=== PATIENT | female | born 1950 | race Caucasian/White ===

== ENCOUNTER → 2019-09-07 | Outpatient (CLI) | payer MEDICARE, OTHER ==
--- NOTE | 2019-09-10 11:41 | MM ---
Reason for exam: screening (asymptomatic). Last mammogram was performed 15 years and 3 months ago. History: Patient has history of other cancer at age 69. Took estrogen for 1 year. Physical Findings: A clinical breast exam by your physician is recommended on an annual basis and results should be correlated with mammographic findings. MG 3D Screening Mammo W/Cad Bilateral CC and MLO view(s) were taken. No prior studies available for comparison. The breast tissue is heterogeneously dense. This may lower the sensitivity of mammography. Benign calcifications. There is no discrete abnormality. ASSESSMENT: Benign, BI-RAD 2 RECOMMENDATION: Routine screening mammogram of both breasts in 1 year.
== END | disposition home or self-care (01) ==
LOC: RADMAMWWP 15:37
PROVIDERS: ATTEND Obstetrics & Gynecology
DX: Z12.31 Encounter for screening mammogram for malignant neoplasm of breast (principal)
CPT/HCPCS: 77063; 77067

== ENCOUNTER → 2020-07-24 | Outpatient (CLI) | payer MEDICARE, OTHER ==
--- NOTE | 2020-07-25 12:48 | FL ---
EXAMINATION TYPE: FL barium swallow w video DATE OF EXAM: 07/24/2020 MODIFIED BARIUM SWALLOW FLUOROSCOPY EXAM CLINICAL HISTORY: Dysphagia. Dementia. TECHNIQUE: Notified barium swallow study is performed utilizing thin liquid barium, barium thick pure e, and barium thick puree with pieces of solid cookie. COMPARISON: None. FINDINGS: There is no evidence of penetration or aspiration with any modality tested. No significant pharyngeal residue was appreciated. Total fluoroscopy time 1 minute 10 seconds IMPRESSION: No evidence of penetration or aspiration. Please refer to speech therapist notes for fu rther details if necessary.
== END | disposition home or self-care (01) ==
LOC: RADUSWWP 10:59
PROVIDERS: ATTEND Family Medicine
DX: R13.10 Dysphagia, unspecified (principal); K21.9 Gastro-esophageal reflux disease without esophagitis; F03.91 Unspecified dementia, unspecified severity, with behavioral disturbance
CPT/HCPCS: 74230

== ENCOUNTER 2020-08-09 | Inpatient (IN) | payer MEDICARE, OTHER ==
--- NOTE | 2020-08-09 00:11 | ED ---
General Adult HPI - General Chief complaint: Weakness Stated complaint: Weakness Time Seen by Provider: 08/09/20 00:01 Source: patient, EMS Mode of arrival: EMS Limitations: altered mental status, physical limitation - History of Present Illness Initial comments: Gracie is a 70-year-old female with a history of COPD and previously diagnosed with diabetes but not currently on any medications. She is brought to the emergency department today by EMS for evaluation of lethargy and decreased mental status. Family reports that the patient just hasn't had any energy she's not eating or drinking well, they did talk to her home health care physician yesterday and escutcheon of possible hospice was initiated. They state that they patient couldn't get out of bed they assisted her to the shower and when they took her back to bed she was so weak they decided to call 911 for transport to hospital. They state that over the past week she's occasionally drink some diet Mountain Dew but otherwise is not eating or drinking not getting out of bed. No known fevers. No nausea or vomiting. Only medication is COPD inhalers. They deny any pain medications or sedatives. On arrival patient wakes to voice, she can state her name, she denies any pain, nausea, vomiting states that she feels tired. - Related Data Allergies Allergy/AdvReac Type Severity Reaction Status Date / Time No Known Allergies Allergy Verified 08/09/20 00:07 Review of Systems ROS Statement: Those systems with pertinent positive or pertinent negative responses have been documented in the HPI. ROS Other: All systems not noted in ROS Statement are negative. Past Medical History Past Medical History: COPD, Diabetes Mellitus History of Any Multi-Drug Resistant Organisms: Unobtainable Past Surgical History: Unable to Obtain Past Psychological History: No Psychological Hx Reported Smoking Status: Current every day smoker Past Alcohol Use History: Unable to Obtain Past Drug Use History: Unable to Obtain General Exam - General Exam Comments Initial Comments: Physical Exam GENERAL: Chronically ill-appearing underweight HENT: Normocephalic, Atraumatic. EYES: PERRL, EOMI PULMONARY: Unlabored respirations. No audible rales rhonchi or wheezing was noted. CARDIOVASCULAR: There is a regular rate and rhythm without any murmurs gallops or rubs. ABDOMEN: Soft and nontender with normal bowel sounds. SKIN: Skin is dry, there is skin tenting noted IV has been established and she is received 500 mL IV fluid prior to arrival : Deferred NEUROLOGIC: Alert and oriented to self only MUSCULOSKELETAL: Generalized atrophy, no apparent injuries PSYCHIATRIC: Unable to assess Limitations: altered mental status, physical limitation Course Vital Signs 08/09/20 08/09/20 08/09/20 00:01 01:00 01:38 Temperature 97.4 F L Pulse Rate 109 H 110 H 106 H Respiratory 16 18 Rate Blood Pressure 97/65 105/66 O2 Sat by Pulse 98 98 Oximetry 08/09/20 01:45 Temperature Pulse Rate 109 H Respiratory Rate Blood Pressure O2 Sat by Pulse Oximetry EKG Findings - EKG Comments: EKG Findings:: EKG was obtained due to generalized weakness, EKG obtained at 12:18 AM, rate is 114 rhythm is narrow complex regular with P waves before each QRS consistent with a sinus tachycardia. DE mildly prolonged at 170, QRS 80, QTC [address] elevations or depressions no evidence of acute ischemia or infarction. Medical Decision Making - Medical Decision Making Patient was seen and evaluated immediately upon arrival the emergency department Patient is very somnolent but arousable, labs and imaging will be obtained Labs resulted with multiple significant abnormalities most concerning for lactic acidosis and hyperkalemia with normal kidney function lab did report only minimal homolysis on initial labs Treatment for hyperkalemia was ordered IV fluids for lactic acidosis was ordered Patient more awake and alert after IV fluid resuscitation. We will plan to adm it the patient I contacted the patient's son, Gareth who states that home health did discuss hospice within due to the patient's poor oral intake and general debility however at this time they do not want to consider hospice. They do want to keep the patient's full CODE STATUS. - Lab Data Result diagrams: 08/09/20 00:13 08/09/20 00:13 Lab Results 08/09/20 08/09/20 08/09/20 Range/Units 00:10 00:13 00:13 WBC 5.2 (3.8-10.6) k/uL RBC 5.24 (3.80-5.40) m/uL Hgb 15.2 (11.4-16.0) gm/dL Hct 48.4 H (34.0-46.0) % MCV 92.4 (80.0-100.0) fL MCH 29.0 (25.0-35.0) pg MCHC 31.3 (31.0-37.0) g/dL RDW 15.5 (11.5-15.5) % Plt Count 313 (150-450) k/uL Neutrophils % (Manual) 19 % Band Neuts % (Manual) 54 % Lymphocytes % (Manual) 22 % Monocytes % (Manual) 5 % Neutrophils # (Manual) 3.70 (1.3-7.7) k/uL Lymphocytes # (Manual) 1.14 (1.0-4.8) k/uL Monocytes # (Manual) 0.26 (0-1.0) k/uL Nucleated RBCs 0 (0-0) /100 WBC Manual Slide Review Performed Hypochromasia Slight PT 10.4 (9.0-12.0) sec INR 1.0 (<1.2) APTT 22.6 (22.0-30.0) sec Sodium (137-145) mmol/L Potassium (3.5-5.1) mmol/L Chloride (98-107) mmol/L Carbon Dioxide (22-30) mmol/L Anion Gap mmol/L BUN (7-17) mg/dL Creatinine (0.52-1.04) mg/dL Est GFR (CKD-EPI)AfAm (>60 ml/min/1.73 sqM) Est GFR (CKD-EPI)NonAf (>60 ml/min/1.73 sqM) Glucose (74-99) mg/dL POC Glucose (mg/dL) 164 H (75-99) mg/dL POC Glu Rotary Machine Operator ID [place], [facility] Plasma Lactic Acid Duy (0.7-2.0) mmol/L Calcium (8.4-10.2) mg/dL Total Bilirubin (0.2-1.3) mg/dL AST (14-36) U/L ALT (4-34) U/L Alkaline Phosphatase (38-126) U/L Total Protein (6.3-8.2) g/dL Albumin (3.5-5.0) g/dL TSH (0.465-4.680) mIU/L Free T4 (0.78-2.19) ng/dL Urine Color Urine Appearance (Clear) Urine pH (5.0-8.0) Ur Specific Marion (1.001-1.035) Urine Protein (Negative) Urine Glucose (UA) (Negative) Urine Ketones (Negative) Urine Blood (Negative) Urine Nitrite (Negative) Urine Bilirubin (Negative) Urine Urobilinogen (<2.0) mg/dL Ur Leukocyte Esterase (Negative) Urine RBC (0-5) /hpf Urine WBC (0-5) /hpf Hyaline Casts (0-2) /lpf Urine Mucus (None) /hpf 08/09/20 08/09/20 08/09/20 Range/Units 00:13 00:13 00:14 WBC (3.8-10.6) k/uL RBC (3.80-5.40) m/uL Hgb (11.4-16.0) gm/dL Hct (34.0-46.0) % MCV (80.0-100.0) fL MCH (25.0-35.0) pg MCHC (31.0-37.0) g/dL RDW (11.5-15.5) % Plt Count (150-450) k/uL Neutrophils % (Manual) % Band Neuts % (Manual) % Lymphocytes % (Manual) % Monocytes % (Manual) % Neutrophils # (Manual) (1.3-7.7) k/uL Lymphocytes # (Manual) (1.0-4.8) k/uL Monocytes # (Manual) (0-1.0) k/uL Nucleated RBCs (0-0) /100 WBC Manual Slide Review Hypochromasia PT (9.0-12.0) sec INR (<1.2) APTT (22.0-30.0) sec Sodium 130 L (137-145) mmol/L Potassium 6.2 H* (3.5-5.1) mmol/L Chloride 98 (98-107) mmol/L Carbon Dioxide 14 L (22-30) mmol/L Anion Gap 18 mmol/L BUN 37 H (7-17) mg/dL Creatinine 0.93 (0.52-1.04) mg/dL Est GFR (CKD-EPI)AfAm 74 (>60 ml/min/1.73 sqM) Est GFR (CKD-EPI)NonAf 64 (>60 ml/min/1.73 sqM) Glucose 174 H (74-99) mg/dL POC Glucose (mg/dL) (75-99) mg/dL POC Glu Rotary Machine Operator ID Plasma Lactic Acid Duy 6.9 H* (0.7-2.0) mmol/L Calcium 9.6 (8.4-10.2) mg/dL Total Bilirubin 1.7 H (0.2-1.3) mg/dL AST 50 H (14-36) U/L ALT 24 (4-34) U/L Alkaline Phosphatase 93 (38-126) U/L Total Protein 6.8 (6.3-8.2) g/dL Albumin 3.9 (3.5-5.0) g/dL TSH 5.810 H (0.465-4.680) mIU/L Free T4 1.72 (0.78-2.19) ng/dL Urine Color Red Urine Appearance Clear (Clear) Urine pH 6.5 (5.0-8.0) Ur Specific Marion 1.027 (1.001-1.035) Urine Protein 1+ H (Negative) Urine Glucose (UA) Negative (Negative) Urine Ketones 1+ H (Negative) Urine Blood Negative (Negative) Urine Nitrite Negative (Negative) Urine Bilirubin 1+ H (Negative) Urine Urobilinogen 2.0 (<2.0) mg/dL Ur Leukocyte Esterase Negative (Negative) Urine RBC <1 (0-5) /hpf Urine WBC <1 (0-5) /hpf Hyaline Casts 36 H (0-2) /lpf Urine Mucus Rare H (None) /hpf Critical Care Time Critical Care Time: Yes Total Critical Care Time: 45 Critical Care Time: Critical Care Time 45 min Critical care time was exclusive of separately billable procedures and treating other patients and teaching time. Critical care was necessary to treat or prevent imminent or life-threatening deterioration. Given the critical condition in which the patient arrived, the patient was immediately assessed by myself and the nurse, and cardiac monitoring initiated due to the potential for rapid decompensation of the patient's clinical condition. During the course of the patients stay, I spent a considerable amount of time at the bedside performing serial re-evaluations of the patient's hemodynamic and clinical status because of the recognized potential threat to life or limb in this condition. I then had a chance to review not only all of the available current laboratory and radiographic studies obtained today, but I also reviewed old records available to me at the time. Additionally, any ancillary information available including instructor industrial design records were reviewed. Sequential vital signs were obtained. Disposition Clinical Impression: Dehydration, Hyperkalemia, Generalized weakness, COPD (chronic obstructive pulmonary disease) Disposition: ADMITTED IP TO THIS HOSP Condition: Serious Is patient prescribed a controlled substance at d/c from ED?: No Referrals: None,Stated [Primary Care Provider] - 1-2 days
[2020-08-09 00:12] LABS: Glucose,Whole Blood 164 mg/dL (75-99)
[2020-08-09] MEDS ORDERED: SODIUM CHLORIDE 0.9% 500 ML 500 ML IV SCH (00:15)
[2020-08-09 00:29] LABS: HCT 48.4 % (34.0-46.0); HGB 15.2 gm/dL (11.4-16.0); Hypochromasia Slight; MCHC 31.3 g/dL (31.0-37.0); MCV 92.4 fL (80.0-100.0); Mean Platelet Volume 8.2; Platelet Count 313 k/uL (150-450); RBC 5.24 m/uL (3.80-5.40); RDW 15.5 % (11.5-15.5); WBC 5.2 k/uL (3.8-10.6)
[2020-08-09 00:42] LABS: Albumin 3.9 g/dL (3.5-5.0); Calcium 9.6 mg/dL (8.4-10.2); Total Bilirubin 1.7 mg/dL (0.2-1.3); Total Protein 6.8 g/dL (6.3-8.2)
--- NOTE | 2020-08-09 00:50 | XR ---
EXAMINATION TYPE: XR chest 1V portable DATE OF EXAM: 08/09/2020 COMPARISON: 06/02/2010 HISTORY: Weakness TECHNIQUE: Single view FINDINGS: Heart is normal. Lungs are clear of infiltrate. There is no pleural effusion. There are no hilar masses. IMPRESSION: Normal chest. There is complete clearing of the left pleural effusion compared to old exa m.
[2020-08-09 01:02] LABS: Band Neutrophils % 54 %; Lymphocytes # (M) 1.14 k/uL (1.0-4.8); Monocytes # (M) 0.26 k/uL (0-1.0); Neutrophils % (M) 19 %; Nucleated Red Blood Cells 0 /100 WBC (0-0); Potassium 6.2 mmol/L (3.5-5.1); Total Cells Counted 100
[2020-08-09 01:10] LABS: Partial Thromboplastin Time 22.6 sec (22.0-30.0); Prothrombin Time 10.4 sec (9.0-12.0)
[2020-08-09] MEDS: SODIUM CHLORIDE 0.9% 1,000 ML IV SCH ×3 (01:11→18:13)
[2020-08-09] MEDS ORDERED: ALBUTEROL NEB (CONC) 2.5 MG/0.5 ML INHALATION ONE (01:20)
[2020-08-09] MEDS ORDERED: CALCIUM GLUCONATE 1 GM in SODIUM CHLORIDE 0.9% 100 ML IVPB ONE (01:20)
[2020-08-09] MEDS ORDERED: INSULIN REGULAR 100 UNIT/ML VIAL IV ONE (01:20)
[2020-08-09] MEDS ORDERED: SODIUM BICARB 8.4% 50 ML SYR (1 MEQ/ML) IV ONE (01:20)
[2020-08-09] MEDS ORDERED: SODIUM CHLORIDE 0.9% 1,000 ML IV ONE ×2 (01:21→05:32)
[2020-08-09 01:22] LABS: Appearance,Urine Clear (Clear); Bilirubin,Urine 1+ (Negative); Blood,Urine Negative (Negative); Color,Urine Red; Glucose,Urine (UA) Negative (Negative); Hyaline Casts,Urine 36 /lpf (0-2); Ketones,Urine 1+ (Negative); Leukocyte Esterase,Urine Negative (Negative); Mucus,Urine Rare /hpf; Nitrite,Urine Negative (Negative); PH, Urine 6.5 (5.0-8.0); Protein,Urine 1+ (Negative); RBC,Urine <1 /hpf (0-5); Specific Gravity,Urine 1.027 (1.001-1.035); WBC,Urine <1 /hpf (0-5)
[2020-08-09] MEDS: DEXTROSE 50% SYRINGE 50 ML IVP ONE (01:35)
[2020-08-09 01:42] LABS: T4, Free (Free Thyroxine) 1.72 ng/dL (0.78-2.19)
[2020-08-09] MEDS ORDERED: NALOXONE 0.4 MG/ML 1 ML VIAL IV PRN (01:45)
[2020-08-09 02:17] LABS: VBG PH 7.38 (7.31-7.41)
[2020-08-09] MEDS: MICONAZOLE NITRATE 4%/2% VAG CREAM KIT VAGINAL SCH (02:59)
--- NOTE | 2020-08-09 04:40 | P.HPIM ---
History of Present Illness H&P Date: 08/09/20 Patient is a 70-year-old female with a PMH of type II DM and COPD who was brought into the emergency room by family members due to lethargy and anorexia. The patient notes that she has been feeling weak at home for the past several months though and that she doesn't have the energy to perform basic tasks. She reports only getting up out of bed to go to the restroom a few times a day. As per the ED documentation the patient's family had reported that she has not been eating or drinking while in that she was evaluated by her primary care visiting physician who was concerned regarding the patient's poor functional status and had recommended possible hospice evaluation. At time of interview, the patient reported some nausea and weakness but denied any additional complaints. Reports that she just does not feel like eating or drinking much at home. She denied chest pain, shortness of breath, diarrhea, abdominal pain. During the goals of care discussion, the patient verbalized depressive thoughts with suicidal ideation. She reported that she is fed up with her life and feels that she would be "better off ". She notes that her family is only an annoyance and that they're always pushing her to eat or drink something. She notes that she has thought about ending her life by slitting her throat and her wrists multiple times. In the emergency room a chest x-ray was unremarkable with EKG showing sinus a cardiac with PVCs at 114 bpm with left axis deviation. Laboratory evalu ation revealed lactic acid of 6.9, sodium 130, potassium 6.2 (hemolyzed), CO2 14, BUN 37, creatinine 0.93, glucose 174, with hyalin casts in the UA. Review of Systems Pertinent positives and negatives as discussed in HPI, a complete review of systems was performed and all other systems are negative. Past Medical History Past Medical History: COPD, Diabetes Mellitus History of Any Multi-Drug Resistant Organisms: Unobtainable Past Surgical History: Unable to Obtain Past Psychological History: No Psychological Hx Reported Smoking Status: Current every day smoker Past Alcohol Use History: Unable to Obtain Past Drug Use History: Unable to Obtain Medications and Allergies Allergies Allergy/AdvReac Type Severity Reaction Status Date / Time No Known Allergies Allergy Verified 08/09/20 00:07 Physical Exam Vitals: Vital Signs Temp Pulse Resp BP Pulse Ox 08/09/20 03:15 98.1 F 110 H 19 101/70 99 08/09/20 02:25 113 H 18 203/130 99 08/09/20 01:45 109 H 08/09/20 01:38 106 H 08/09/20 01:00 97.4 F L 110 H 18 105/66 98 08/09/20 00:01 109 H 16 97/65 98 Intake and Output 08/08/20 08/08/20 08/09/20 14:59 22:59 06:59 Other: Weight 56.6 kg General: Very frail elderly female, appears chronically ill, no distress, appears significantly older than stated age Derm: no unusual rashes/lesions no unusual ecchymoses, warm, dry Head: atraumatic, normocephalic, symmetric Eyes: EOMI, no lid lag, anicteric sclera, pupils equal round reactive to light ENT: Nose and ears atraumatic, no thrush, no pharyngeal erythema Neck: No thyromegaly, no cervical lymphadenopathy, trachea midline, supple Mouth: no lip lesion, mucus membranes dry Cardiovascular: S1S2 reg, no murmur, positive posterior tibial pulse bilateral, no edema, capillary refill less than 2 seconds Lungs: CTA bilateral, no rhonchi, no rales , no accessory muscle use Abdominal: soft, nontender to palpation, no guarding, no appreciable organomegaly Ext: Thin extremities, muscle strength 3 out of 5 in all 4 extremities grossly, no contractures, Neuro: CN II-XI grossly intact, light touch intact all 4 extremities Psych: Oriented to person and place, when asked any additional questions, the patient notes that she is too tired to think Results CBC & Chem 7: 08/09/20 00:13 08/09/20 00:13 Labs: Abnormal Lab Results - Last 24 Hours (Table) 08/09/20 08/09/20 08/09/20 Range/Units 00:10 00:13 00:13 Hct 48.4 H (34.0-46.0) % VBG pCO2 (37-51) mmHg VBG HCO3 (24-28) mmol/L Sodium 130 L (137-145) mmol/L Potassium 6.2 H* (3.5-5.1) mmol/L Carbon Dioxide 14 L (22-30) mmol/L BUN 37 H (7-17) mg/dL Glucose 174 H (74-99) mg/dL POC Glucose (mg/dL) 164 H (75-99) mg/dL Plasma Lactic Acid Duy (0.7-2.0) mmol/L Total Bilirubin 1.7 H (0.2-1.3) mg/dL AST 50 H (14-36) U/L TSH 5.810 H (0.465-4.680) mIU/L Urine Protein (Negative) Urine Ketones (Negative) Urine Bilirubin (Negative) Hyaline Casts (0-2) /lpf Urine Mucus (None) /hpf 08/09/20 08/09/20 08/09/20 Range/Units 00:13 00:14 02:09 Hct (34.0-46.0) % VBG pCO2 (37-51) mmHg VBG HCO3 (24-28) mmol/L Sodium (137-145) mmol/L Potassium (3.5-5.1) mmol/L Carbon Dioxide (22-30) mmol/L BUN (7-17) mg/dL Glucose (74-99) mg/dL POC Glucose (mg/dL) (75-99) mg/dL Plasma Lactic Acid Duy 6.9 H* 4.7 H* (0.7-2.0) mmol/L Total Bilirubin (0.2-1.3) mg/dL AST (14-36) U/L TSH (0.465-4.680) mIU/L Urine Protein 1+ H (Negative) Urine Ketones 1+ H (Negative) Urine Bilirubin 1+ H (Negative) Hyaline Casts 36 H (0-2) /lpf Urine Mucus Rare H (None) /hpf 08/09/20 Range/Units 02:10 Hct (34.0-46.0) % VBG pCO2 32 L (37-51) mmHg VBG HCO3 19 L (24-28) mmol/L Sodium (137-145) mmol/L Potassium (3.5-5.1) mmol/L Carbon Dioxide (22-30) mmol/L BUN (7-17) mg/dL Glucose (74-99) mg/dL POC Glucose (mg/dL) (75-99) mg/dL Plasma Lactic Acid Duy (0.7-2.0) mmol/L Total Bilirubin (0.2-1.3) mg/dL AST (14-36) U/L TSH (0.465-4.680) mIU/L Urine Protein (Negative) Urine Ketones (Negative) Urine Bilirubin (Negative) Hyaline Casts (0-2) /lpf Urine Mucus (None) /hpf Assessment and Plan Plan: Severe lactic acidosis -Likely secondary to poor oral intake and dehydration -Monitor to resolution -Continue with IV fluids Acute kidney injury, likely due to poor oral intake -Monitor BMP and continue with IV fluids Failure to thrive -Continue with IV fluids -Physical therapy consult -meat counter worker consult -Dietitian consult Depression with suicidal ideation -Psychiatry consult -Hold off on further goals of care discussion at this time Hyponatremia -Likely secondary to poor oral intake -Continue IV fluids and monitor BMP Chronic conditions: Type II DM, COPD -Check A1c -Lispro insulin sliding scale blood glucose monitoring DVT prophylaxis -Heparin subq The patient is admitted with an anticipated greater than than 2 midnight stay f or evaluation of severe lactic acidosis. CODE STATUS: Full code Discussed with: Patient Anticipated discharge date: 2-[address]: SNF A total of 40 minutes was spent on the care of this complex patient more than 50% of the time was spent in counseling and care coordination.
[2020-08-09 05:02] LABS: Glucose,Whole Blood 131 mg/dL (75-99)
[2020-08-09 07:00] LABS: African American GFR (CKD) >90 (>60 ml/min/1.73 sqM); Anion Gap 8 mmol/L; Blood Urea Nitrogen 34 mg/dL (7-17); Calcium 8.9 mg/dL (8.4-10.2); Carbon Dioxide 23 mmol/L (22-30); Chloride 104 mmol/L (98-107); Glucose 119 mg/dL (74-99); Non-African American GFR(CKD) >90 (>60 ml/min/1.73 sqM); Potassium 3.2 mmol/L (3.5-5.1); Sodium 135 mmol/L (137-145)
[2020-08-09 07:19] LABS: HCT 39.2 % (34.0-46.0); HGB 12.7 gm/dL (11.4-16.0); MCH 28.9 pg (25.0-35.0); MCHC 32.6 g/dL (31.0-37.0); MCV 88.9 fL (80.0-100.0); Mean Platelet Volume 6.8; Platelet Count 282 k/uL (150-450); RDW 15.4 % (11.5-15.5); WBC 5.5 k/uL (3.8-10.6)
[2020-08-09 08:13] LABS: Glucose,Whole Blood 111 mg/dL (75-99)
[2020-08-09] MEDS ORDERED: IOPAMIDOL CONTRAST (ORAL USE) VIAL PO PRN (08:59)
--- NOTE | 2020-08-09 09:22 | XR ---
EXAMINATION TYPE: XR knee complete RT DATE OF EXAM: 08/09/2020 COMPARISON: NONE HISTORY: Pain TECHNIQUE: Three views are submitted. FINDINGS: Diffuse osteopenia. Vascular calcifications noted. Joint spaces fairly well preserved.. Osseous stru ctures are intact. No acute fracture seen. IMPRESSION: 1. No acute fracture or dislocation. 2. Diffuse osteopenia.
[2020-08-09] MEDS: INSULIN ASPART (NovoLOG) 100 UNIT/ML VIAL SQ SCH ×4 (09:33→20:09)
[2020-08-09] MEDS ORDERED: ONDANSETRON 4 MG/2 ML VIAL IVP PRN (09:41)
[2020-08-09] MEDS ORDERED: POTASSIUM CHLORIDE ER 20 MEQ TAB.ER PO STA (10:00)
[2020-08-09] MEDS: POTASSIUM CHLORIDE ER 20 MEQ TAB.ER PO STA ×2 (10:10→10:58)
[2020-08-09] MEDS ORDERED: Potassium Replacement Protocol 1 EACH MISC MISCELLANE PRN (10:43)
[2020-08-09] MEDS: POTASSIUM CHLORIDE 10 MEQ in WATER FOR INJECTION 1 100ML.BAG IVPB SCH ×4 (10:48→20:36)
--- NOTE | 2020-08-09 11:26 | P.PN ---
Subjective Progress Note Date: 08/09/20 (delayed charting seen at 0830) Principal diagnosis: weakness Patient is a 70-year-old female with past medical history of diabetes mellitus type 2, COPD, and tremor was brought into the emergency room by family members due to lethargy and anorexia. Patient has been following with visiting physicians and underwent video fluoroscopy on 07/2520 for possible dysphagia however no dysphagia was noted exam. Apparently visiting physicians had one to discuss hospice care with the patient due to her overall functional decline. Yesterday she became more lethargic and disoriented and subsequently EMS was activated and the patient was brought to the hospital. On EMS arrival the p atient was significantly hypotensive. On arrival to the ER she underwent an extensive evaluation. She was tachycardic with a pulse of 109 and blood pressure of 97/65. Initial laboratory analysis showed sodium 130, potassium 6.2, carbon dioxide 14, anion gap 18, BUN 37, creatinine 0.39, glucose 164, plasma lactic acid 6.9. Her total bilirubin was 1.7 with an AST of 50. Urinalysis showed 1+ protein 1+ ketones 1+ bilirubin and 36 hyalin casts. She was started on IV fluids. Chest x-ray was obtained which was normal. She was subsequently admitted to the ICU for severe metabolic acidosis. After admission she did express suicidal ideation. Suicide sitter was placed and psychiatry was consulted. Patient seen and examined at bedside. She states that she has not been hungry and does not want to eat. She is complaining of some right knee pain and states that she fell yesterday before coming to the emergency department. She states she's been getting weaker. She denies any chest pain or shortness of breath. General: non toxic, no distress, appears older than stated age, thin cachexia, temporal wasting loss of buccal fat Derm: warm, dry, multiple areas of excoriation on her legs. Head: atraumatic, normocephalic, symmetric Eyes: EOMI, no lid lag, anicteric sclera Mouth: no lip lesion, mucus membranes moist Cardiovascular: S1S2 reg, no murmur, positive posterior tibial pulse bilateral, Lungs: Decreased bs bilateral, no rhonchi, no rales , no accessory muscle use Abdominal: soft, nontender to palpation, no guarding, no appreciable organomegaly Ext: no gross muscle atrophy, no edema, no contractures Msucle strenght 4/5 bilateral lower extremities, able to flex and extend at knee and ankle, small effusion right patella, pain to palpation of medial knee joint Neuro: CN II-XI grossly intact, no focal neuro deficits Psych: Alert, oriented, appropriate affect Lactic acidosis suspect secondary to dehydration and starvation -Continue to follow lactic acid to less than 2 -IV fluids Hyponatremia secondary to dehydration -Improving -IV fluids -Repeat in a.m. Elevated bilirubin and AST -CT abdomen and pelvis ordered -Pain control Anorexia with severe protein calorie malnutrition and failure to thrive -Dietary consult -Supplements -Encourage oral intake -Consider age appropriate cancer screening Suicidal ideation - Suicide precaution - Psychiartry evaluation Diabetes mellitus type 2 -Check hemoglobin A1c -Sliding-scale insulin -Verify patient's home meds Right knee pain -On Tylenol as needed for pain -Check x-ray - PT/OT evaluation COPD without exacerbation - prn bronchodilators - unknown severity Hyperkalemia, resolved DVT prophylaxis: SCDs Discussed with: patient, nursing Anticipated discharge: 3-[address]: SNF A total of 35 minutes was spent on the care of this complex patient more than 50% of the time was spent in counseling and care coordination. Objective - Vital Signs Vital signs: Vital Signs Temp 97.7 F 08/09/20 08:15 Pulse 109 H 08/09/20 10:00 Resp 18 08/09/20 10:00 BP 107/63 08/09/20 10:00 Pulse Ox 95 08/09/20 10:00 Intake & Output 08/08/20 08/09/20 08/09/20 18:59 06:59 18:59 Intake Total 390 Balance 390 Weight 56.6 kg Intake: IV 390 Sodium Chloride 0.9% 1, 390 000 ml @ 130 mls/hr IV . Q7H42M [facility] Rx#:[id number] Other: # Voids 1 - Labs CBC & Chem 7: 08/09/20 06:40 08/09/20 06:40 Labs: Abnormal Lab Results - Last 24 Hours (Table) 08/09/20 08/09/20 08/09/20 Range/Units 00:10 00:13 00:13 Hct 48.4 H (34.0-46.0) % VBG pCO2 (37-51) mmHg VBG HCO3 (24-28) mmol/L Sodium 130 L (137-145) mmol/L Potassium 6.2 H* (3.5-5.1) mmol/L Carbon Dioxide 14 L (22-30) mmol/L BUN 37 H (7-17) mg/dL Glucose 174 H (74-99) mg/dL POC Glucose (mg/dL) 164 H (75-99) mg/dL Plasma Lactic Acid Duy (0.7-2.0) mmol/L Total Bilirubin 1.7 H (0.2-1.3) mg/dL AST 50 H (14-36) U/L TSH 5.810 H (0.465-4.680) mIU/L Urine Protein (Negative) Urine Ketones (Negative) Urine Bilirubin (Negative) Hyaline Casts (0-2) /lpf Urine Mucus (None) /hpf 08/09/20 08/09/20 08/09/20 Range/Units 00:13 00:14 02:09 Hct (34.0-46.0) % VBG pCO2 (37-51) mmHg VBG HCO3 (24-28) mmol/L Sodium (137-145) mmol/L Potassium (3.5-5.1) mmol/L Carbon Dioxide (22-30) mmol/L BUN (7-17) mg/dL Glucose (74-99) mg/dL POC Glucose (mg/dL) (75-99) mg/dL Plasma Lactic Acid Duy 6.9 H* 4.7 H* (0.7-2.0) mmol/L Total Bilirubin (0.2-1.3) mg/dL AST (14-36) U/L TSH (0.465-4.680) mIU/L Urine Protein 1+ H (Negative) Urine Ketones 1+ H (Negative) Urine Bilirubin 1+ H (Negative) Hyaline Casts 36 H (0-2) /lpf Urine Mucus Rare H (None) /hpf 08/09/20 08/09/20 08/09/20 Range/Units 02:10 04:08 04:54 Hct (34.0-46.0) % VBG pCO2 32 L (37-51) mmHg VBG HCO3 19 L (24-28) mmol/L Sodium (137-145) mmol/L Potassium (3.5-5.1) mmol/L Carbon Dioxide (22-30) mmol/L BUN (7-17) mg/dL Glucose (74-99) mg/dL POC Glucose (mg/dL) 131 H (75-99) mg/dL Plasma Lactic Acid Duy 5.8 H* (0.7-2.0) mmol/L Total Bilirubin (0.2-1.3) mg/dL AST (14-36) U/L TSH (0.465-4.680) mIU/L Urine Protein (Negative) Urine Ketones (Negative) Urine Bilirubin (Negative) Hyaline Casts (0-2) /lpf Urine Mucus (None) /hpf 08/09/20 08/09/20 08/09/20 Range/Units 06:40 07:29 08:11 Hct (34.0-46.0) % VBG pCO2 (37-51) mmHg VBG HCO3 (24-28) mmol/L Sodium 135 L (137-145) mmol/L Potassium 3.2 L (3.5-5.1) mmol/L Carbon Dioxide (22-30) mmol/L BUN 34 H (7-17) mg/dL Glucose 119 H (74-99) mg/dL POC Glucose (mg/dL) 111 H (75-99) mg/dL Plasma Lactic Acid Duy 2.7 H* (0.7-2.0) mmol/L Total Bilirubin (0.2-1.3) mg/dL AST (14-36) U/L TSH (0.465-4.680) mIU/L Urine Protein (Negative) Urine Ketones (Negative) Urine Bilirubin (Negative) Hyaline Casts (0-2) /lpf Urine Mucus (None) /hpf 08/09/20 Range/Units 10:28 Hct (34.0-46.0) % VBG pCO2 (37-51) mmHg VBG HCO3 (24-28) mmol/L Sodium (137-145) mmol/L Potassium (3.5-5.1) mmol/L Carbon Dioxide (22-30) mmol/L BUN (7-17) mg/dL Glucose (74-99) mg/dL POC Glucose (mg/dL) (75-99) mg/dL Plasma Lactic Acid Duy 2.2 H* (0.7-2.0) mmol/L Total Bilirubin (0.2-1.3) mg/dL AST (14-36) U/L TSH (0.465-4.680) mIU/L Urine Protein (Negative) Urine Ketones (Negative) Urine Bilirubin (Negative) Hyaline Casts (0-2) /lpf Urine Mucus (None) /hpf
--- NOTE | 2020-08-09 11:59 | CT ---
EXAMINATION TYPE: CT ChestAbdPelvis w con DATE OF EXAM: 08/09/2020 COMPARISON: None available. HISTORY: Anorexia, Wt. Loss CT DLP: 814.8 mGycm Automated exposure control for dose reduction was used. CONTRAST: CT scan of the chest, abdomen and pelvis is performed without Oral Contrast and with IV Contrast, pat ient injected with 100 mL of Isovue 300. FINDINGS: LUNGS: The lungs are grossly clear, there is no concerning parenchymal mass or nodule identified. T here is no pleural effusion or pneumothorax seen. The tracheobronchial tree is patent. MEDIASTINUM: There are no greater than 1 cm hilar or mediastinal lymph nodes. No pericardial effusi on is seen. OTHER: No additional significant abnormality is seen. LIVER/GB: No significant abnormality is appreciated. Cholecystectomy is noted. No significant biliary ductal dilatation. PANCREAS: No significant abnormality is seen. SPLEEN: No significant abnormality is seen. ADRENALS: 1.5 cm left adrenal nodule. Unremarkable right adrenal gland. KIDNEYS: No significant abnormality is seen. BOWEL: Mild fluid distention of the colon throughout with mild mucosal enhancement most notable of t he left colon. No overt bowel obstruction or obstructing mass is seen. No acute appendicitis. REPRODUCTIVE ORGANS: No gross abnormality seen. LYMPH NODES: No greater than 1 cm abdominal or pelvic lymph nodes are appreciated. OSSEOUS STRUCTURES: No definite acute osseous abnormality. Multilevel chronic appearing mild to moder ate thoracolumbar compression deformities on the background of mild to moderate spondylosis. OTHER: Urinary bladder is markedly distended. Moderate abdominal aorta atherosclerotic disease. IMPRESSION: Nonspecific mild colonic fluid distention mild mucosal enhancement. Findings may be seen with colitis with/without diarrhea. Recommend clinical correlation. No overt bowel obstruction or free air. Markedly distended urinary bladder. No acute cardiopulmonary abnormality.
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
--- NOTE | 2020-08-09 12:27 | P.CNPUL ---
History of Present Illness Consult date: 08/09/20 Reason for consult: COPD History of present illness: This is a 70-year-old female patient, quite pleasant yet hostile and angry towards her family members as the patient is living at home with her and son. She is a chronic smoker in she has underlying COPD. 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 The patient has been progressively getting worse in ter ms of her nutritional intake. Over the past 1 year, the patient has been having difficulties with dysphagia and keeping food material and. She states that she has been having average bowel movements, somewhat irregular without any bleeding. No abdominal distention. Apparently she's been losing weight. She has a visiting physician was recommended hospice care for her. She hasn't been showed that she would like to take that option at this point in time. Apparently her health has been gradually declining and she is currently down to 56 kg and her body mass index is at 19. She came into the ED as the patient became more lethargic and disoriented and the patient was found to have lactic a cidosis with a plasma lactic acid level of 6.9 and she had a mild anion gap metabolic acidosis the bicarb level of 14 and an anion gap of 18. BUN was 37. Creatinine was 0.39. The patient's sodium level was at 1:30 with a potassium level of 6.2. Urinalysis showed +1 protein and +1 ketones on. No signs of any infection. The chest x-ray was normal. The patient came in to the ICU for severe metabolic acidosis and lactic acidosis. Note that she improved with fluid resuscitation and the patient lactic acid level has declined nicely. She is awake. She has some tremors yet she has never been diagnosed having Parkinson. This may be a component of benign essential tremors. She denies having any headaches. Mental status although seems to be appropriate and she is slow in answering questions. Review of Systems Constitutional: Reports chronic headaches, Reports fatigue, Reports lethargy, Reports poor appetite, Reports weakness, Reports weight loss Eyes: denies as per HPI, denies blurred vision, denies bulging eye, denies decreased vision, denies diplopia, denies discharge, denies dry eye, denies irritation, denies itching, denies pain, denies photophobia, denies loss of peripheral vision, denies loss of vision, denies tunnel vision/blind spots Ears: deny: decreased hearing, ear discharge, earache, tinnitus Ears, nose, mouth and throat: Reports as per HPI Breasts: absent: as per HPI, change in shape, gynecomastia, masses, nipple discharge, pain, skin changes, swelling Cardiovascular: Reports decreased exercise tolerance, Reports dyspnea on exertion Respiratory: Reports as per HPI Gastrointestinal: Reports loss of appetite, Reports nausea, Reports vomiting Genitourinary: Reports as per HPI Menstruation: Reports as per HPI Musculoskeletal: Reports as per HPI, Reports gait dysfunction, Reports muscle weakness Musculoskeletal: absent: ankle pain, ankle stiffness, ankle swelling Integumentary: Reports as per HPI Neurological: Reports weakness Psychiatric: Reports as per HPI Endocrine: Reports as per HPI, Reports fatigue Hematologic/Lymphatic: Reports as per HPI Allergic/Immunologic: Reports as per HPI Past Medical History Past Medical History: COPD, Diabetes Mellitus, Hypertension, Seizure Disorder Additional Past Medical History / Comment(s): tremors, nausea vomiting post oral intake, weight loss #20 History of Any Multi-Drug Resistant Organisms: Unobtainable Past Surgical History: Section, Cholecystectomy Additional Past Surgical History / Comment(s): Right temporal lobectomy r/t seizures, skin cancer nose, carpal tunnel, right shoulder Past Psychological History: No Psychological Hx Reported Smoking Status: Current every day smoker Past Alcohol Use History: Unable to Obtain Past Drug Use History: Unable to Obtain Medications and Allergies Home Medications Medication Instructions Recorded Confirmed Type Biotin 10,000 W/Keratin 100 Mg 1 tab PO DAILY 08/09/20 08/09/20 History Divalproex [Depakote] 250 mg PO BID 08/09/20 08/09/20 History Pantoprazole [Protonix] 40 mg PO DAILY 08/09/20 08/09/20 History Primidone [Mysoline] 250 mg PO DAILY 08/09/20 08/09/20 History QUEtiapine [SEROquel] 50 mg PO HS 08/09/20 08/09/20 History Tiotropium Earle [Spiriva] 1 cap INHALATION DAILY 08/09/20 08/09/20 History Vortioxetine Hydrobromide 20 mg PO DAILY 08/09/20 08/09/20 History [Trintellix] clonazePAM 0.5 mg PO TID PRN 08/09/20 08/09/20 History ramipriL [Ramipril] 2.5 mg PO DAILY 08/09/20 08/09/20 History traZODone HCL 50 mg PO HS 08/09/20 08/09/20 History Allergies Allergy/AdvReac Type Severity Reaction Status Date / Time No Known Allergies Allergy Verified 08/09/20 00:07 Physical Exam Vitals: Vital Signs Temp Pulse Resp BP Pulse Ox 08/09/20 08:30 110 H 10 L 100/62 95 08/09/20 08:15 97.7 F 112 H 12 99/78 92 L 08/09/20 06:36 98.1 F 109 H 18 119/74 100 08/09/20 05:30 98.0 F 110 H 18 98/63 100 08/09/20 04:15 112 H 19 103/67 99 08/09/20 03:15 98.1 F 110 H 19 101/70 99 08/09/20 02:25 113 H 18 203/130 99 08/09/20 01:45 109 H 08/09/20 01:38 106 H 08/09/20 01:00 97.4 F L 110 H 18 105/66 98 08/09/20 00:01 109 H 16 97/65 98 Intake and Output 08/08/20 08/09/20 08/09/20 22:59 06:59 14:59 Intake Total 130 Balance 130 Intake: IV 130 Sodium Chloride 0.9% 1, 130 000 ml @ 130 mls/hr IV . Q7H42M [facility] Rx#:[id number] Other: # Voids 1 Weight 56.6 kg General: non toxic, no distress, appears older than stated age, thin cachexia, temporal wasting loss of buccal fat Derm: warm, dry, multiple areas of excoriation on her legs. Head: atraumatic, normocephalic, symmetric Eyes: EOMI, no lid lag, anicteric sclera Mouth: no lip lesion, mucus membranes moist Cardiovascular: S1S2 reg, no murmur, positive posterior tibial pulse bilateral, Lungs: Decreased bs bilateral, no rhonchi, no rales , no accessory muscle use Abdominal: soft, nontender to palpation, no guarding, no appreciable organomegaly Ext: no gross muscle atrophy, no edema, no contractures Msucle strenght 4/5 bilateral lower extremities, able to flex and extend at knee and ankle, small effusion right patella, pain to palpation of medial knee joint Neuro: CN II-XI grossly intact, no focal neuro deficits Psych: Alert, oriented, appropriate affect Results - Laboratory Findings CBC and BMP: 08/09/20 06:40 08/09/20 06:40 PT/INR, D-dimer PT 10.4 sec (9.0-12.0) 08/09/20 00:13 INR 1.0 (<1.2) 08/09/20 00:13 Abnormal lab findings: Abnormal Labs 08/09/20 08/09/20 08/09/20 00:10 00:13 00:13 Hct 48.4 H VBG pCO2 VBG HCO3 Sodium 130 L Potassium 6.2 H* Carbon Dioxide 14 L BUN 37 H Glucose 174 H POC Glucose (mg/dL) 164 H Plasma Lactic Acid Duy Total Bilirubin 1.7 H AST 50 H TSH 5.810 H Urine Protein Urine Ketones Urine Bilirubin Hyaline Casts Urine Mucus 08/09/20 08/09/20 08/09/20 00:13 00:14 02:09 Hct VBG pCO2 VBG HCO3 Sodium Potassium Carbon Dioxide BUN Glucose POC Glucose (mg/dL) Plasma Lactic Acid Duy 6.9 H* 4.7 H* Total Bilirubin AST TSH Urine Protein 1+ H Urine Ketones 1+ H Urine Bilirubin 1+ H Hyaline Casts 36 H Urine Mucus Rare H 08/09/20 08/09/20 08/09/20 02:10 04:08 04:54 Hct VBG pCO2 32 L VBG HCO3 19 L Sodium Potassium Carbon Dioxide BUN Glucose POC Glucose (mg/dL) 131 H Plasma Lactic Acid Duy 5.8 H* Total Bilirubin AST TSH Urine Protein Urine Ketones Urine Bilirubin Hyaline Casts Urine Mucus 08/09/20 08/09/20 08/09/20 06:40 07:29 08:11 Hct VBG pCO2 VBG HCO3 Sodium 135 L Potassium 3.2 L Carbon Dioxide BUN 34 H Glucose 119 H POC Glucose (mg/dL) 111 H Plasma Lactic Acid Duy 2.7 H* Total Bilirubin AST TSH Urine Protein Urine Ketones Urine Bilirubin Hyaline Casts Urine Mucus - Diagnostic Findings Chest x-ray: image reviewed Assessment and Plan Plan: 1 failure to thrive with ongoing dehydration and lactic acidosis, likely secondary to starvation. Lactic acid levels are improving as the patient is being resuscitated IV fluids 2 hyponatremia, improving 3 severe malnourishment and protein calorie malnutrition and failure to thrive. This could be psychiatric in nature. This could be also organic in nature and the patient needs to be worked up for malignancy/that she is having some previous history of dysphagia and difficulties in tolerating her oral intake. 4 diabetes mellitus type 2 5 history of seizures post resection of a lobe of the brain 6 hypertension 7 COPD which is currently inactive in stable 8 osteoarthritis Plan Continue IV fluids with normal state rate of 1 30 mL an hour The lactic S level is improving Resume all medications including Depakote for seizures Check Depakote levels CAT scan of the chest and abdomen with oral contrast as part of a leg Mrs. screening process Dietary consultation Psychiatric evaluation. Upon further inquiry the patient was taken Seroquel 50 mg at bedtime and addition to clonazepam 0.5 mg 3 times a day when necessary, a nd she is also on trazodone 50 mg at bedtime. We'll continue to follow.
[2020-08-09 12:30] LABS: Glucose,Whole Blood 88 mg/dL (75-99)
[2020-08-09 13:45] LABS: Hemoglobin A1C 5.5 % (4.0-6.0)
[2020-08-09 17:31] LABS: Glucose,Whole Blood 103 mg/dL (75-99)
[2020-08-09 19:28] LABS: Glucose,Whole Blood 94 mg/dL (75-99)
[2020-08-09] MEDS: MIRTAZAPINE 15 MG TAB PO SCH (20:36)
[2020-08-10] MEDS: SODIUM CHLORIDE 0.9% 1,000 ML IV SCH ×2 (02:38→12:15)
[2020-08-10 07:01] LABS: Glucose,Whole Blood 77 mg/dL (75-99)
[2020-08-10] MEDS: INSULIN ASPART (NovoLOG) 100 UNIT/ML VIAL SQ SCH ×4 (08:14→20:36)
[2020-08-10 09:22] LABS: HGB 13.4 gm/dL (11.4-16.0); Hypochromasia Slight; MCH 29.3 pg (25.0-35.0); MCV 91.7 fL (80.0-100.0); Mean Platelet Volume 6.9; Platelet Count 200 k/uL (150-450); RBC 4.58 m/uL (3.80-5.40); RDW 15.5 % (11.5-15.5)
[2020-08-10 09:30] LABS: African American GFR (CKD) >90 (>60 ml/min/1.73 sqM); Anion Gap 6 mmol/L; Blood Urea Nitrogen 12 mg/dL (7-17); Calcium 8.6 mg/dL (8.4-10.2); Carbon Dioxide 23 mmol/L (22-30); Chloride 108 mmol/L (98-107); Glucose 95 mg/dL (74-99); Magnesium 1.5 mg/dL (1.6-2.3); Non-African American GFR(CKD) >90 (>60 ml/min/1.73 sqM); Phosphorus 1.7 mg/dL (2.5-4.5); Potassium 3.6 mmol/L (3.5-5.1); Sodium 137 mmol/L (137-145)
[2020-08-10] MEDS: MAGNESIUM SULFATE-D5W PMX 1 GM in DEXTROSE/WATER 1 100ML.BAG IVPB SCH ×4 (10:55→20:37)
[2020-08-10] MEDS: PANTOPRAZOLE 40 MG TABLET PO SCH (10:59)
[2020-08-10] MEDS: IPRATROPIUM 0.5 MG/2.5 ML NEBU INHALATION SCH ×3 (11:36→21:10)
--- NOTE | 2020-08-10 11:44 | P.PN ---
Subjective Progress Note Date: 08/10/20 Principal diagnosis: Failure to thrive with ongoing dehydration and lactic acidosis, suspect secondary to starvation This is a 70-year-old female patient, quite pleasant yet hostile and angry towards her family members as the patient is living at home with her and son. She is a chronic smoker in she has underlying COPD. 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 The patient has been progressively getting worse in terms of her nutritional intake. Over the past 1 year, the patient has been having difficulties with dysphagia and keeping food material and. She states that she has been having average bowel movements, somewhat irregular without any bleeding. No abdominal distention. Apparently she's been losing weight. She has a visiting physician was recommended hospice care for her. She hasn't been showed that she would like to take that option at this point in time. Apparentl y her health has been gradually declining and she is currently down to 56 kg and her body mass index is at 19. She came into the ED as the patient became more lethargic and disoriented and the patient was found to have lactic acidosis with a plasma lactic acid level of 6.9 and she had a mild anion gap metabolic acidosis the bicarb level of 14 and an anion gap of 18. BUN was 37. Creatinine was 0.39. The patient's sodium level was at 1:30 with a potassium level of 6.2. Urinalysis showed +1 protein and +1 ketones on. No signs of any infection. The chest x-ray was normal. The patient came in to the ICU for severe metabolic acidosis and lactic acidosis. Note that she improved with fluid resuscitation and the patient lactic acid level has declined nicely. She is awake. She has some tremors yet she has never been diagnosed having Parkinson. This may be a component of benign essential tremors. She denies having any headaches. Mental status although seems to be appropriate and she is slow in answering questions. The patient is seen today 08/10/2020 and follow-up on the regular medical floor. No pulmonary complaints. Maintaining O2 saturations in the 90s on room air. She's afebrile. Hemodynamically stable. Blood culture reveals no growth to date. Urine culture pending. White count 5.0. Hemoglobin 13.4. Sodium 137. Potassium 3.6. Creatinine 0.33. Most recent lactic acidosis 2.0. Computed tomography scan of the chest abdomen pelvis did not reveal any significant findings other than mild colitis. Objective - Vital Signs Vital signs: Vital Signs Temp 98.6 F 08/10/20 04:33 Pulse 111 H 08/10/20 04:33 Resp 14 08/10/20 04:33 BP 128/78 08/10/20 04:33 Pulse Ox 94 L 08/10/20 04:33 Intake & Output 08/09/20 08/10/20 08/10/20 18:59 06:59 18:59 Intake Total 1140 1660 Output Total 2625 Balance -1485 1660 Weight 56.6 kg Intake: IV 1040 1660 Potassium Chloride 10 meq 100 In Water For Injection 1 100ml.bag @ 100 mls/hr IVPB Q1HR [facility] Rx#: [id number] Sodium Chloride 0.9% 1, 1040 1560 000 ml @ 130 mls/hr IV . Q7H42M [facility] Rx#:[id number] Intake, IV Titration 100 Amount Potassium Chloride 10 meq 100 In Water For Injection 1 100ml.bag @ 100 mls/hr IVPB Q1HR [facility] Rx#: [id number] Output: Urine 2625 Other: Voiding Method Indwelling Catheter Indwelling Catheter Indwelling Catheter # Voids 1 - Exam General: 70-year-old female patient, on room air, no distress, appears older than stated age, thin cachexia, temporal wasting Derm: warm, dry, multiple areas of excoriation on her legs. Head: atraumatic, normocephalic, symmetric Eyes: EOMI, no lid lag, anicteric sclera Mouth: no lip lesion, mucus membranes moist Cardiovascular: S1 S2 reg, no murmur, positive posterior tibial pulse bilateral, Lungs: Decreased bs bilateral, no rhonchi, no rales , no accessory muscle use Abdominal: soft, nontender to palpation, no guarding, no appreciable organomegaly Ext: no gross muscle atrophy, no edema, no contractures Msucle strenght 4/5 bilateral lower extremities, able to flex and extend at knee and ankle, small effusion right patella, pain to palpation of medial knee joint Neuro: CN II-XI grossly intact, no focal neuro deficits Psych: Alert, oriented, appropriate affect - Labs CBC & Chem 7: 08/10/20 09:09 08/10/20 09:09 Labs: Abnormal Lab Results - Last 24 Hours (Table) 08/09/20 08/10/20 Range/Units 17:29 09:09 Chloride 108 H (98-107) mmol/L Creatinine 0.33 L (0.52-1.04) mg/dL POC Glucose (mg/dL) 103 H (75-99) mg/dL Phosphorus 1.7 L (2.5-4.5) mg/dL Magnesium 1.5 L (1.6-2.3) mg/dL Microbiology - Last 24 Hours (Table) 08/09/20 01:00 Blood Culture - Preliminary Blood No Growth after 24 hours 08/09/20 12:53 Urine Culture - Preliminary Urine,Catheterized Assessment and Plan Assessment: 1 failure to thrive with ongoing dehydration and lactic acidosis, likely secondary to starvation. Lactic acid levels are improving as the patient is being resuscitated IV fluids 2 hyponatremia, recovered sodium 137 3 severe malnourishment and protein calorie malnutrition and failure to thrive. This could be psychiatric in nature. This could be also organic in nature and the patient needs to be worked up for malignancy/that she is having some previous history of dysphagia and difficulties in tolerating her oral intake. 4 diabetes mellitus type 2 5 history of seizures post resection of a lobe of the brain 6 hypertension 7 COPD which is currently inactive in stable 8 osteoarthritis Plan The patient was seen and evaluated by Dr. Castro Manzanares from the pulmonary and critical care standpoint We will follow as needed I, the cosigning physician, performed a history & physical examination of the patient. Lungs sounds are clear, diminished. Maintaining good O2 saturations in the 90s on room air. I discussed the assessment and plan of care with my nurse practitioner, Jillian Dumont. I attest to the above note as dictated by her.
--- NOTE | 2020-08-10 11:51 | P.PN ---
Subjective Progress Note Date: 08/10/20 Principal diagnosis: weakness Patient is a 70-year-old female with past medical history of diabetes mellitus type 2, COPD, and tremor was brought into the emergency room by family members due to lethargy and anorexia. Patient has been following with visiting physicians and underwent video fluoroscopy on 07/2520 for possible dysphagia however no dysphagia was noted exam. Apparently visiting physicians had one to discuss hospice care with the patient due to her overall functional decline. Yesterday she became more lethargic and disoriented and subsequently EMS was activated and the patient was brought to the hospital. On EMS arrival the patient was significantly hypotensive. On arrival to the ER she underwent an extensive evaluation. She was tachycardic with a pulse of 109 and blood pressure of 97/65. Initial laboratory analysis showed sodium 130, potassium 6.2, carbon dioxide 14, anion gap 18, BUN 37, creatinine 0.39, glucose 164, plasma lactic acid 6.9. Her total bilirubin was 1.7 with an AST of 50. Urinalysis showed 1+ protein 1+ ketones 1+ bilirubin and 36 hyalin casts. She was started on IV fluids. Chest x-ray was obtained which was normal. She was subsequently admitted to the ICU for severe metabolic acidosis. After admission she did express suicidal ideation. Suicide sitter was placed and psychiatry was consulted. She was recommended for sade psych when medically stable. She was unable to urinate and a joe was placed. She was noted to have vaginal discharge and was started on monastat. Her lactic acid cleared. She was not eating much. She was started on Remeron by psychiatry. She has already undergone a modified barium swallow study which did not demonstrate any signs of dysphasia. Patient seen and examined at bedside. Initially she refused to open her eyes and engaging conversation. She denies any chest pain or shortness of breath. She tells me she ate breakfast so nursing staff confirms that she only 3 body. She denies a cough, however nursing staff confirms that she has had a significant productive cough. When I asked to perform a vaginal exam to look at her discharge the patient obliged. A security systems sales representative Teresa, a patient rn medicare was present during the exam. She was noted to have thick cream-colored discharge without any signs of excoriation or external lesions. Patient then asked if she could continue using her Dildo. Her that she currently has an infection and she should not. I also educated her on the importance of cleaning such products in between uses that she currently has a significant yeast infection. She then told me I was no fun and stuck her tongue out at me. General: non toxic, no distress, appears older than stated age, thin cachexia, temporal wasting loss of buccal fat Derm: warm, dry, multiple areas of excoriation on her legs. Head: atraumatic, normocephalic, symmetric Eyes: EOMI, no lid lag, anicteric sclera Mouth: no lip lesion, mucus membranes moist Cardiovascular: S1S2 reg, no murmur, positive posterior tibial pulse bilateral, Lungs: Decreased bs bilateral, no rhonchi, no rales , no accessory muscle use Abdominal: soft, nontender to palpation, no guarding, no appreciable organomegaly Ext: no gross muscle atrophy, no edema, no contractures Msucle strenght 4/5 bilateral lower extremities, able to flex and extend at knee and ankle, small effusion right patella, pain to palpation of medial knee joint Neuro: CN II-XI grossly intact, no focal neuro deficits Psych: Alert, oriented, inappropriate comments Vaginal exam: thick cream-colored discharge without any signs of excoriation or external lesions. Anorexia with severe protein calorie malnutrition and failure to thrive -Dietary consult -Supplements -Encourage oral intake -Consider age appropriate cancer screening as outpatient - was on dexamethasone for appetite stimulation, but this can lead to steroid induced psychosis and will be held - remeron started by psych Hx of TBI with right temporal lobectomy - neuro recs in AM, suspect personality changes Generalized weakness - PT/OT evaluation Hypomagnesemia and hypophosphatemia - replace and recheck Elevated bilirubin and AST -CT abdomen and pelvis with mild non specific fluid distension and marked urinary bladder distension -repeat CMP in AM Urinary retention - joe in place Vaginal yeast infection - diflucan X 1 Suicidal ideation - Suicide precaution - Psychiatry recs: started on remeron and appropriate for Sade psych - at home was on: clonazeam, trasodone, trintellix, seroquel Diabetes mellitus type 2 - A1c 5.5 -Sliding-scale insulin -diet controlled at home Right knee pain -On Tylenol as needed for pain -X-ray without fracture - PT/OT evaluation COPD without exacerbation - prn bronchodilators - unknown severity - spiriva Hyperkalemia, resolved Lactic acidosis suspect secondary to dehydration and starvation, resolved Hyponatremia secondary to dehydration, resolved DVT prophylaxis: SCDs Discussed with: patient, nursing Anticipated discharge: 1-[address]: SNF A total of 35 minutes was spent on the care of this complex patient more than 50% of the time was spent in counseling and care coordination. Objective - Vital Signs Vital signs: Vital Signs Temp 98.6 F 08/10/20 04:33 Pulse 111 H 08/10/20 04:33 Resp 14 08/10/20 04:33 BP 128/78 08/10/20 04:33 Pulse Ox 94 L 08/10/20 04:33 Intake & Output 08/09/20 08/10/20 08/10/20 18:59 06:59 18:59 Intake Total 1140 1660 Output Total 2625 Balance -1485 1660 Weight 56.6 kg Intake: IV 1040 1660 Potassium Chloride 10 meq 100 In Water For Injection 1 100ml.bag @ 100 mls/hr IVPB Q1HR [facility] Rx#: [id number] Sodium Chloride 0.9% 1, 1040 1560 000 ml @ 130 mls/hr IV . Q7H42M [facility] Rx#:[id number] Intake, IV Titration 100 Amount Potassium Chloride 10 meq 100 In Water For Injection 1 100ml.bag @ 100 mls/hr IVPB Q1HR [facility] Rx#: [id number] Output: Urine 2625 Other: Voiding Method Indwelling Catheter Indwelling Catheter Indwelling Catheter # Voids 1 - Labs CBC & Chem 7: 08/10/20 09:09 08/10/20 09:09 Labs: Abnormal Lab Results - Last 24 Hours (Table) 08/09/20 08/10/20 Range/Units 17:29 09:09 Chloride 108 H (98-107) mmol/L Creatinine 0.33 L (0.52-1.04) mg/dL POC Glucose (mg/dL) 103 H (75-99) mg/dL Phosphorus 1.7 L (2.5-4.5) mg/dL Magnesium 1.5 L (1.6-2.3) mg/dL Microbiology - Last 24 Hours (Table) 08/09/20 01:00 Blood Culture - Preliminary Blood No Growth after 24 hours 08/09/20 12:53 Urine Culture - Preliminary Urine,Catheterized
[2020-08-10] MEDS: POTASSIUM PHOSPHATE 10 MMOL in SODIUM CHLORIDE 0.9% 250 ML IV SCH ×2 (12:01→14:08)
[2020-08-10] MEDS: PRIMIDONE 250 MG TAB PO SCH (12:01)
[2020-08-10] MEDS: DIVALPROEX 250 MG TABLET.DR PO SCH ×2 (12:01→20:38)
[2020-08-10 12:29] LABS: Glucose,Whole Blood 115 mg/dL (75-99)
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
[2020-08-10] MEDS: DEXTROSE 5%-0.45% NACL 1,000 ML IV SCH (16:05)
[2020-08-10 17:02] LABS: Glucose,Whole Blood 100 mg/dL (75-99)
[2020-08-10 20:22] LABS: Glucose,Whole Blood 126 mg/dL (75-99)
[2020-08-10] MEDS: MICONAZOLE NITRATE 4%/2% VAG CREAM KIT VAGINAL SCH (20:36)
[2020-08-10] MEDS: MIRTAZAPINE 15 MG TAB PO SCH (20:37)
[2020-08-11 04:44] LABS: HGB 11.6 gm/dL (11.4-16.0); MCH 28.1 pg (25.0-35.0); MCHC 32.1 g/dL (31.0-37.0); MCV 87.6 fL (80.0-100.0); Mean Platelet Volume 6.6; Platelet Count 128 k/uL (150-450); RBC 4.11 m/uL (3.80-5.40); RDW 15.3 % (11.5-15.5); WBC 2.4 k/uL (3.8-10.6)
[2020-08-11] MEDS: IPRATROPIUM 0.5 MG/2.5 ML NEBU INHALATION SCH ×4 (07:11→19:51)
[2020-08-11 07:22] LABS: Glucose,Whole Blood 134 mg/dL (75-99)
[2020-08-11] MEDS: PANTOPRAZOLE 40 MG TABLET PO SCH (08:01)
[2020-08-11] MEDS: INSULIN ASPART (NovoLOG) 100 UNIT/ML VIAL SQ SCH ×4 (08:01→21:34)
[2020-08-11] MEDS: PRIMIDONE 250 MG TAB PO SCH (08:02)
[2020-08-11] MEDS: DIVALPROEX 250 MG TABLET.DR PO SCH ×2 (09:24→21:28)
[2020-08-11] MEDS: DEXTROSE 5%-0.45% NACL 1,000 ML IV SCH ×2 (10:20→21:49)
[2020-08-11 10:37] LABS: ALT 19 U/L (8-44); AST 28 U/L (13-35); African American GFR (CKD) 155.8 (60.0-200.0); Alkaline Phosphatase 49 U/L (41-126); Blood Urea Nitrogen <5.0 mg/dL (9.0-27.0); Calcium 7.6 mg/dL (8.7-10.3); Carbon Dioxide 25.7 mmol/L (21.6-31.8); Chloride 99 mmol/L (96-109); Globulin 1.5 g/dL (1.6-3.3); Glucose 125 mg/dL (70-110); Magnesium 1.6 mg/dL (1.5-2.4); Non-African American GFR(CKD) 134.4 (60.0-200.0); Phosphorus 1.6 mg/dL (2.4-5.1); Potassium 3.2 mmol/L (3.5-5.5); Sodium 134 mmol/L (135-145); Total Bilirubin 0.5 mg/dL (0.2-1.2); Total Protein 4.2 g/dL (6.2-8.2)
[2020-08-11] MEDS ORDERED: POTASSIUM CHLORIDE 20 MEQ in WATER FOR INJECTION 1 100ML.BAG IVPB STA (12:11)
[2020-08-11 12:26] LABS: Glucose,Whole Blood 93 mg/dL (75-99)
[2020-08-11] MEDS ORDERED: FLUCONAZOLE 150 MG TAB PO STA (12:50)
--- NOTE | 2020-08-11 12:53 | P.PN ---
Subjective Progress Note Date: 08/11/20 Principal diagnosis: weakness Patient is a 70-year-old female with past medical history of diabetes mellitus type 2, COPD, and tremor who was brought into the emergency room by family members due to lethargy and anorexia. Patient has been following with visiting physicians and underwent video fluoroscopy on 07/2520 for possible dysphagia however no dysphagia was noted exam. Apparently visiting physicians had one to discuss hospice care with the patient due to her overall functional decline. Yesterday she became more lethargic and disoriented and subsequently EMS was activated and the patient was brought to the hospital. On EMS arrival the patient was significantly hypotensive. On arrival to the ER she underwent an extensive evaluation. She was tachycardic with a pulse of 109 and blood pressure of 97/65. Initial laboratory analysis showed sodium 130, potassium 6 .2, carbon dioxide 14, anion gap 18, BUN 37, creatinine 0.39, glucose 164, plasma lactic acid 6.9. Her total bilirubin was 1.7 with an AST of 50. Urinalysis showed 1+ protein 1+ ketones 1+ bilirubin and 36 hyalin casts. She was started on IV fluids. Chest x-ray was obtained which was normal. She was subsequently admitted to the ICU for severe metabolic acidosis. After admission she did express suicidal ideation. Suicide sitter was placed and psychiatry was consulted. She was recommended for sade psych when medically stable. She was unable to urinate and a joe was placed. She was noted to have vaginal discharge and was started on monastat. Her lactic acid cleared. She was not eating much. She was started on Remeron by psychiatry. She has already undergone a modified barium swallow study which did not demonstrate any signs of dysphasia. Patient seen and examined at bedside. She has no complaints that this time. She still does not want to eat or drink. She denies chest pain and shortness of breath. She denies any suicidal ideation and states that she is not depressed. General: non toxic, no distress, appears older than stated age, thin cachexia, temporal wasting loss of buccal fat Derm: warm, dry, multiple areas of excoriation on her legs. Head: atraumatic, normocephalic, symmetric Eyes: EOMI, no lid lag, anicteric sclera Mouth: no lip lesion, mucus membranes moist Cardiovascular: S1S2 reg, no murmur, positive posterior tibial pulse bilateral, Lungs: Decreased bs bilateral, no rhonchi, no rales , no accessory muscle use Abdominal: soft, nontender to palpation, no guarding, no appreciable organomegaly Ext: + gross muscle atrophy, no edema, no contractures Neuro: CN II-XI grossly intact, no focal neuro deficits Psych: Alert, oriented, inappropriate comments Anorexia with severe protein calorie malnutrition and failure to thrive -Dietary recs -Supplements -Encourage oral intake -Consider age appropriate cancer screening as outpatient - was on dexamethasone for appetite stimulation, but this can lead to steroid induced psychosis, osteoprosis, hyperglycemia, skin thinning and will be held - remeron initiated by psych Hx of TBI with right temporal lobectomy - Out patient follow-up, suspect personality changes Generalized weakness - PT/OT evaluation Hypomagnesemia, hypokalemi righta, and hypophosphatemia - replace and recheck Elevated bilirubin and AST -CT abdomen and pelvis with mild non specific fluid distension and marked urinary bladder distension -repeat CMP in AM Urinary retention - joe in place Vaginal yeast infection - diflucan X 1 08/11/2020 Indication that she wasn't really happy with what was going on finger without any Suicidal ideation - Suicide precaution - Psychiatry recs: started on remeron and appropriate for Sade psych - at home was on: clonazeam, trasodone, trintellix, seroquel Diabetes mellitus type 2 - A1c 5.5 -Sliding-scale insulin -diet controlled at home Right knee pain -On Tylenol as needed for pain -X-ray without fracture - PT/OT evaluation COPD without exacerbation - prn bronchodilators - unknown severity - spiriva Hyperkalemia, resolved Lactic acidosis suspect secondary to dehydration and starvation, resolved Hyponatremia secondary to dehydration, resolved DVT prophylaxis: SCDs Discussed with: patient, nursing Anticipated discharge: 1-[address]: SNF A total of 35 minutes was spent on the care of this complex patient more than 50% of the time was spent in counseling and care coordination. Objective - Vital Signs Vital signs: Vital Signs Temp 98.7 F 08/11/20 05:00 Pulse 100 08/11/20 05:00 Resp 20 08/11/20 05:00 BP 107/67 08/11/20 05:00 Pulse Ox 97 08/11/20 05:00 Intake & Output 1008/11/20 08/11/20 18:59 06:59 18:59 Intake Total 1290 1175 Output Total 400 Balance 1290 775 Weight 56.6 kg Intake: IV 1040 Sodium Chloride 0.9% 1, 1040 000 ml @ 130 mls/hr IV . Q7H42M [facility] Rx#:[id number] Intake, IV Titration 250 925 Amount Dextrose 5%-0.45% NaCl 1, 825 000 ml @ 75 mls/hr IV . [id number] [facility] Rx#:[id number] Magnesium Sulfate-D5w Pmx 100 1 gm In Dextrose/Water 1 100ml.bag @ 100 mls/hr IVPB Q1H [facility] Rx#: [id number] Potassium Phosphate 10 250 mmol In Sodium Chloride 0 .9% 250 ml @ 125 mls/hr IV Q2H [facility] Rx#:[id number] Oral 250 Output: Urine 400 Other: Voiding Method Indwelling Catheter Indwelling Catheter Indwelling Catheter # Voids 300 - Labs CBC & Chem 7: 08/11/20 04:26 08/11/20 04:26 Labs: Abnormal Lab Results - Last 24 Hours (Table) 08/10/20 08/10/20 08/10/20 Range/Units 12:25 17:00 20:13 WBC (3.8-10.6) k/uL Plt Count (150-450) k/uL Sodium (135-145) mmol/L Potassium (3.5-5.5) mmol/L BUN (9.0-27.0) mg/dL Creatinine (0.6-1.5) mg/dL Glucose (70-110) mg/dL POC Glucose (mg/dL) 115 H 100 H 126 H (75-99) mg/dL Calcium (8.7-10.3) mg/dL Phosphorus (2.4-5.1) mg/dL Total Protein (6.2-8.2) g/dL Albumin (3.80-4.90) g/dL Globulin (1.6-3.3) g/dL 08/11/20 08/11/20 08/11/20 Range/Units 04:26 04:26 07:20 WBC 2.4 L (3.8-10.6) k/uL Plt Count 128 L (150-450) k/uL Sodium 134 L (135-145) mmol/L Potassium 3.2 L (3.5-5.5) mmol/L BUN <5.0 L (9.0-27.0) mg/dL Creatinine 0.2 L (0.6-1.5) mg/dL Glucose 125 H (70-110) mg/dL POC Glucose (mg/dL) 134 H (75-99) mg/dL Calcium 7.6 L (8.7-10.3) mg/dL Phosphorus 1.6 L (2.4-5.1) mg/dL Total Protein 4.2 L (6.2-8.2) g/dL Albumin 2.70 L (3.80-4.90) g/dL Globulin 1.5 L (1.6-3.3) g/dL Microbiology - Last 24 Hours (Table) 08/09/20 01:00 Blood Culture - Preliminary Blood No Growth after 48 hours 08/09/20 12:53 Urine Culture - Preliminary Urine,Catheterized Gram Neg Bacilli Strep agalactiae - (group b)
[2020-08-11] MEDS: MAGNESIUM SULFATE-D5W PMX 1 GM in DEXTROSE/WATER 1 100ML.BAG IVPB SCH ×2 (13:15→14:18)
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
[2020-08-11 17:32] LABS: Glucose,Whole Blood 88 mg/dL (75-99)
[2020-08-11] MEDS: POTASSIUM PHOSPHATE 10 MMOL in SODIUM CHLORIDE 0.9% 250 ML IV SCH ×2 (17:48→21:45)
[2020-08-11 20:31] LABS: Glucose,Whole Blood 78 mg/dL (75-99)
[2020-08-11] MEDS: QUEtiapine 25 MG TAB PO SCH (21:28)
[2020-08-11] MEDS: MIRTAZAPINE 15 MG TAB PO SCH (21:29)
[2020-08-11] MEDS: MICONAZOLE NITRATE 4%/2% VAG CREAM KIT VAGINAL SCH (21:51)
[2020-08-12 02:22] LABS: Glucose,Whole Blood 93 mg/dL (75-99)
[2020-08-12 05:23] LABS: HCT 36.1 % (34.0-46.0); HGB 11.4 gm/dL (11.4-16.0); Hypochromasia Slight; MCH 29.2 pg (25.0-35.0); MCHC 31.5 g/dL (31.0-37.0); MCV 92.5 fL (80.0-100.0); Mean Platelet Volume 7.8; RDW 15.5 % (11.5-15.5); WBC 1.8 k/uL (3.8-10.6)
[2020-08-12] MEDS: DEXTROSE 5%-0.45% NACL 1,000 ML IV SCH ×2 (05:29→17:58)
[2020-08-12 05:55] LABS: Platelet Count 92 k/uL (150-450)
[2020-08-12] MEDS: IPRATROPIUM 0.5 MG/2.5 ML NEBU INHALATION SCH ×5 (07:35→19:58)
[2020-08-12 07:43] LABS: Glucose,Whole Blood 97 mg/dL (75-99)
[2020-08-12] MEDS ORDERED: VORTIOXETINE HYDROBROMIDE 20 MG TABLET PO SCH (09:00)
[2020-08-12] MEDS: INSULIN ASPART (NovoLOG) 100 UNIT/ML VIAL SQ SCH ×4 (09:14→20:38)
[2020-08-12] MEDS: PRIMIDONE 250 MG TAB PO SCH (09:15)
[2020-08-12] MEDS: PANTOPRAZOLE 40 MG TABLET PO SCH (09:15)
[2020-08-12] MEDS: DIVALPROEX 250 MG TABLET.DR PO SCH ×3 (09:15→20:37)
[2020-08-12 09:17] LABS: African American GFR (CKD) 155.8 (60.0-200.0); Blood Urea Nitrogen <5.0 mg/dL (9.0-27.0); Calcium 7.7 mg/dL (8.7-10.3); Carbon Dioxide 20.9 mmol/L (21.6-31.8); Chloride 99 mmol/L (96-109); Glucose 89 mg/dL (70-110); Magnesium 1.6 mg/dL (1.5-2.4); Non-African American GFR(CKD) 134.4 (60.0-200.0); Potassium 3.9 mmol/L (3.5-5.5); Sodium 133 mmol/L (135-145)
[2020-08-12] MEDS ORDERED: IOPAMIDOL CONTRAST (ORAL USE) VIAL PO PRN (11:16)
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
[2020-08-12 12:15] LABS: Glucose,Whole Blood 99 mg/dL (75-99)
[2020-08-12] MEDS: POTASSIUM PHOSPHATE 10 MMOL in SODIUM CHLORIDE 0.9% 250 ML IV SCH ×2 (13:12→14:55)
[2020-08-12] MEDS: MAGNESIUM SULFATE-D5W PMX 1 GM in DEXTROSE/WATER 1 100ML.BAG IVPB SCH ×3 (13:12→16:47)
--- NOTE | 2020-08-12 14:09 | P.PN ---
Subjective Progress Note Date: 08/12/20 (delayed charting seen at 1045) Principal diagnosis: weakness Patient is a 70-year-old female with past medical history of diabetes mellitus type 2, COPD, and tremor who was brought into the emergency room by family members due to lethargy and anorexia. Patient has been following with visiting physicians and underwent video fluoroscopy on 07/2520 for possible dysphagia however no dysphagia was noted exam. Apparently visiting physicians had one to discuss hospice care with the patient due to her overall functional decline. Yesterday she became more lethargic and disoriented and subsequently EMS was activated and the patient was brought to the hospital. On EMS arrival the patient was significantly hypotensive. On arrival to the ER she underwent an extensive evaluation. She was tachycardic with a pulse of 109 and blood pressure of 97/65. Initial laboratory analysis showed sodium 130, potassium 6.2, carbon dioxide 14, anion gap 18, BUN 37, creatinine 0.39, glucose 164, plasma lactic acid 6.9. Her total bilirubin was 1.7 with an AST of 50. Urinalysis showed 1+ protein 1+ ketones 1+ bilirubin and 36 hyalin casts. She was started on IV fluids. Chest x-ray was obtained which was normal. She was subsequently admitted to the ICU for severe metabolic acidosis. After admission she did express suicidal ideation. Suicide sitter was placed and psychiatry was consulted. She was recommended for sade psych when medically stable. She was unable to urinate and a joe was placed. She was noted to have vaginal discharge and was started on monastat. Her lactic acid cleared. She was not eating much. She was started on Remeron by psychiatry. She has already u ndergone a modified barium swallow study which did not demonstrate any signs of dysphasia. She continued to have low appetite and electrolyte disturbances which were replaced daily. She was started on marinol for appetite stimulation on 08/12. She also developed abdominal pain on 08/[address] abd and pelvis ordered to followup on mild colonic distension noted on last CT. Patient seen and examined at bedside. She is complaining of belly pain, abdominal. No nausea, no vomiting, no diarrhea. She states that she has the pain intermittently. General: non toxic, no distress, appears older than stated age, thin cachexia, temporal wasting loss of buccal fat Derm: warm, dry, multiple areas of excoriation on her legs. Head: atraumatic, normocephalic, symmetric Eyes: EOMI, no lid lag, anicteric sclera Mouth: no lip lesion, mucus membranes moist Cardiovascular: S1S2 reg, no murmur, positive posterior tibial pulse bilateral, Lungs: Decreased bs bilateral, no rhonchi, no rales , no accessory muscle use Abdominal: soft, +tender to palpation epigastric, no guarding, no appreciable organomegaly Ext: + gross muscle atrophy, no edema, no contractures Neuro: CN II-XI grossly intact, no focal neuro deficits Psych: Alert, oriented, inappropriate comments Anorexia with severe protein calorie malnutrition and failure to thrive -Dietary recs -Supplements -Encourage oral intake -Consider age appropriate cancer screening as outpatient - was on dexamethasone for appetite stimulation, but this can lead to steroid induced psychosis, osteoprosis, hyperglycemia, skin thinning and will be held - remeron initiated by psych - miranol Hx of TBI with right temporal lobectomy - Out patient follow-up, suspect personality changes Generalized weakness - PT/OT evaluation Hypomagnesemia, hypokalemia, and hypophosphatemia - replace and recheck Elevated bilirubin and AST -CT abdomen and pelvis with mild non specific fluid distension and marked urinary bladder distension -repeat CMP in AM Urinary retention - joe in place Vaginal yeast infection - diflucan X 1 08/11/2020 Indication that she wasn't really happy with what was going on finger without any Depression with - Psychiatry recs: no longer suicidal, remeron, seroquel, trintellix Diabetes mellitus type 2 - A1c 5.5 -Sliding-scale insulin -diet controlled at home Right knee pain -On Tylenol as needed for pain -X-ray without fracture - PT/OT evaluation COPD without exacerbation - prn bronchodilators - unknown severity - spiriva Hyperkalemia, resolved Lactic acidosis suspect secondary to dehydration and starvation, resolved Hyponatremia secondary to dehydration, resolved Suicidal ideation, resolved DVT prophylaxis: SCDs Discussed with: patient, nursing Anticipated discharge: 1-[address]: SNF A total of 35 minutes was spent on the care of this complex patient more than 50% of the time was spent in counseling and care coordination. Objective - Vital Signs Vital signs: Vital Signs Temp 98.7 F 08/12/20 12:33 Pulse 77 08/12/20 12:33 Resp 16 08/12/20 12:33 BP 103/65 08/12/20 12:33 Pulse Ox 98 08/12/20 12:33 Intake & Output 08/11/20 08/12/20 08/12/20 18:59 06:59 18:59 Intake Total 200 400 Output Total 300 Balance 200 100 Weight 56.6 kg Intake: Intake, IV Titration 200 400 Amount Dextrose 5%-0.45% NaCl 1, 150 000 ml @ 75 mls/hr IV . [id number] [facility] Rx#:[id number] Magnesium Sulfate-D5w Pmx 200 1 gm In Dextrose/Water 1 100ml.bag @ 100 mls/hr IVPB Q1H [facility] Rx#: [id number] Potassium Phosphate 10 250 mmol In Sodium Chloride 0 .9% 250 ml @ 125 mls/hr IV Q2H [facility] Rx#:[id number] Output: Urine 300 Other: Voiding Method Indwelling Catheter Indwelling Catheter # Voids 0 # Bowel Movements 0 - Labs CBC & Chem 7: 08/12/20 04:19 08/12/20 04:19 Labs: Abnormal Lab Results - Last 24 Hours (Table) 08/12/20 08/12/20 Range/Units 04:19 04:19 WBC 1.8 L (3.8-10.6) k/uL Plt Count 92 L (150-450) k/uL Sodium 133 L (135-145) mmol/L Carbon Dioxide 20.9 L (21.6-31.8) mmol/L Anion Gap 13.10 H (4.00-12.00) mmol/L BUN <5.0 L (9.0-27.0) mg/dL Creatinine 0.2 L (0.6-1.5) mg/dL Calcium 7.7 L (8.7-10.3) mg/dL Phosphorus 2.0 L (2.4-5.1) mg/dL Microbiology - Last 24 Hours (Table) 08/09/20 01:00 Blood Culture - Preliminary Blood No Growth after 72 hours 08/09/20 12:53 Urine Culture - Final Urine,Catheterized Escherichia coli Strep agalactiae - (group b)
--- NOTE | 2020-08-12 14:34 | CT ---
EXAMINATION TYPE: CT abdomen pelvis w con DATE OF EXAM: 08/12/2020 COMPARISON: 08/09/2020 INDICATION: Abdominal pain DLP: 521 mGycm, Automated exposure control for dose reduction was used. CONTRAST: 100 mL of Isovue 300. Study performed with Oral Contrast TECHNIQUE: Axial images were obtained from above the diaphragm to the pubic rami in the axial plane a t 5 mm thick sections. Reconstructed images are reviewed on the computer in the coronal plane. FINDINGS: Limited CT sections are obtained the lung bases. Minimal left pleural effusion is present.. CT ABDOMEN: Liver: Normal Spleen: Normal Pancreas: Normal Adrenal glands: There is thickening of the right adrenal gland measuring 1.4 cm. Left adrenal gland m easures 1.5 cm. Gallbladder: Absent Kidneys: No masses are evident. No hydronephrosis is present. No cysts are present. Delayed images were obtained through the kidneys. There is some mild inferior lateral inflammatory change within th e introitus fascia at the inferior pole right kidney. Some mild inflammatory changes around the ascen ding colon at this level as well. Aorta: Vascular calcification is within the aorta. Inferior vena cava: Normal. CT PELVIS: There are multiple fluid-filled dilated loops of colon. Fluid-filled small bowel loops are present. C orrelate for ileus. Small amount of free fluid is within the right paracolic gutter. Appendix: Normal as visualized. Urinary bladder: Jo catheter is within urinary bladder. Genitourinary structures: Uterus and ovaries are not present. Osseous structures: No suspicious lytic or sclerotic lesions. IMPRESSIONS: 1. Clinical consideration for ileus is recommended. There are multiple fluid-filled loops of bowel w ithin the abdomen and pelvis.. 2. Small amount of thickening of the bilateral adrenal glands. 3. Mild inflammatory change at the inferior pole right kidney and adjacent to the ascending colon virgie e level is nonspecific.
[2020-08-12 17:26] LABS: Glucose,Whole Blood 110 mg/dL (75-99)
[2020-08-12 20:21] LABS: Glucose,Whole Blood 114 mg/dL (75-99)
[2020-08-12] MEDS: MIRTAZAPINE 15 MG TAB PO SCH (20:37)
[2020-08-12] MEDS: QUEtiapine 25 MG TAB PO SCH (20:38)
[2020-08-13 05:23] LABS: HCT 35.7 % (34.0-46.0); HGB 11.1 gm/dL (11.4-16.0); Hypochromasia Slight; MCH 28.9 pg (25.0-35.0); MCHC 31.2 g/dL (31.0-37.0); MCV 92.6 fL (80.0-100.0); Mean Platelet Volume 7.4; RBC 3.86 m/uL (3.80-5.40); RDW 15.5 % (11.5-15.5)
[2020-08-13 05:34] LABS: Platelet Count 70 k/uL (150-450)
[2020-08-13 07:15] LABS: Glucose,Whole Blood 84 mg/dL (75-99)
[2020-08-13] MEDS ORDERED: SODIUM CHLORIDE 0.9% 1,000 ML IV ONE ×5 (07:29→15:59)
[2020-08-13] MEDS: IPRATROPIUM 0.5 MG/2.5 ML NEBU INHALATION SCH ×4 (07:46→20:33)
--- NOTE | 2020-08-13 08:17 | XR ---
EXAMINATION TYPE: XR chest 1V portable DATE OF EXAM: 08/13/2020 CLINICAL HISTORY: Cough TECHNIQUE: Portable upright view of the chest COMPARISON: Chest radiograph 08/09/2020 FINDINGS: Low lung volumes. The cardiomediastinal silhouette is within normal limits for size. Pulmo nary vasculature is normal. There is no focal air space opacity, pleural effusion, or pneumothorax se en. The osseous structures are intact. IMPRESSION: No acute cardiopulmonary process.
[2020-08-13 08:22] LABS: Glucose,Whole Blood 104 mg/dL (75-99)
[2020-08-13 08:44] LABS: Reticulocyte % 0.2 % (0.5-2.0)
[2020-08-13] MEDS: DEXTROSE 5%-0.45% NACL 1,000 ML IV SCH ×2 (08:49→11:12)
[2020-08-13] MEDS: INSULIN ASPART (NovoLOG) 100 UNIT/ML VIAL SQ SCH ×5 (08:50→21:22)
[2020-08-13 08:52] LABS: AST 27 U/L (14-36); African American GFR (CKD) >90 (>60 ml/min/1.73 sqM); Albumin 1.8 g/dL (3.5-5.0); Albumin/Globulin Ratio 0.9; Alkaline Phosphatase 38 U/L (38-126); Anion Gap 11 mmol/L; Blood Urea Nitrogen 16 mg/dL (7-17); Calcium 7.3 mg/dL (8.4-10.2); Carbon Dioxide 17 mmol/L (22-30); Chloride 101 mmol/L (98-107); Globulin 1.9 g/dL; Glucose 80 mg/dL (74-99); Non-African American GFR(CKD) >90 (>60 ml/min/1.73 sqM); Potassium 3.9 mmol/L (3.5-5.1); Sodium 129 mmol/L (137-145); Total Bilirubin 0.5 mg/dL (0.2-1.3); Total Protein 3.7 g/dL (6.3-8.2)
[2020-08-13] MEDS ORDERED: VORTIOXETINE HYDROBROMIDE 10 MG TABLET PO SCH (09:00)
[2020-08-13 09:01] LABS: ALT 22 U/L (4-34)
[2020-08-13 09:55] LABS: Albumin 2.2 g/dL (3.80-4.90); Albumin/Globulin Ratio 1.69 (1.60-3.17); Anion Gap 14.7 mmol/L (4.00-12.00); BUN/Creat Ratio 37.5 Ratio (12.00-20.00); Calcium 7.7 mg/dL (8.7-10.3); Carbon Dioxide 19.3 mmol/L (21.6-31.8); Globulin 1.3 g/dL (1.6-3.3); Magnesium 2.2 mg/dL (1.5-2.4); Phosphorus 2.3 mg/dL (2.4-5.1); Potassium 3.9 mmol/L (3.5-5.5); Total Bilirubin 0.4 mg/dL (0.3-1.2); Total Protein 3.5 g/dL (6.2-8.2)
[2020-08-13] MEDS: SODIUM CHLORIDE 0.9% 1,000 ML IV ONE ×2 (10:30→14:57)
[2020-08-13 11:07] LABS: Glucose,Whole Blood 68 mg/dL (75-99)
[2020-08-13 11:07] LABS: Glucose,Whole Blood 67 mg/dL (75-99)
[2020-08-13] MEDS ORDERED: DEXTROSE 50% SYRINGE 50 ML IVP ONE (11:07)
[2020-08-13] MEDS: DEXTROSE 50% SYRINGE 50 ML IVP ONE (11:10)
[2020-08-13 11:25] LABS: Glucose,Whole Blood 184 mg/dL (75-99)
[2020-08-13] MEDS: DIVALPROEX 250 MG TABLET.DR PO SCH (11:26)
[2020-08-13] MEDS: PRIMIDONE 250 MG TAB PO SCH (11:26)
[2020-08-13] MEDS: PANTOPRAZOLE 40 MG TABLET PO SCH (11:26)
[2020-08-13] MEDS: NOREPINEPHRINE 4 MG in SODIUM CHLORIDE 0.9% 250 ML IV SCH ×2 (11:30→21:02)
[2020-08-13] MEDS ORDERED: HYDROCORTISONE SUCCINATE 100 MG/2 ML VIAL IV SCH (12:00)
[2020-08-13 12:48] LABS: LDH 243 U/L (313-618)
[2020-08-13 12:56] LABS: INR 1.5 (<1.2); Partial Thromboplastin Time 56.7 sec (22.0-30.0); Prothrombin Time 14.4 sec (9.0-12.0)
--- NOTE | 2020-08-13 13:24 | P.PN ---
Progress Note - Text Progress Note Date: 08/13/20 Interval History: Patient was transferred to the ICU after presenting as unresponsive this morning. Currently she is unable to participate in the interview and is sleeping. She is being evaluated for a possible seizure. Medications are held at this time due to swallow precautions. Mental Status Exam: General Appearance: Patient appears to be resting in bed in no acute distress Behavior: Patient is sleeping. Speech: Unable to assess Mood/Affect: Unable to assess Suicidality/Homicidality: Unable to assess Perceptions: Unable to assess Though content/process: Unable to assess Memory and concentration: Unable to assess Judgment and insight: Unable to assess Assessment Major Depressive Disorder Psychosis, unspecified History of TBI Plan: -Patient continues to meet criteria for inpatient psychiatric admission for symptom stabilization and safety. Patient has signed [adult voluntary form and] medication consent and was placed in patient's chart. -Medications: This provider contacted the pharamacy and there is no remeron M-tabs on formulary. Will discontinue Trintellix. Continue Remeron and Seroquel once patient is able. -When necessary Ativan and Geodon for agitation/aggression. -Psychiatry will continue to follow
[2020-08-13 13:56] LABS: ABG HCO3 16 mmol/L (21-25); ABG Oxygen Saturation 91.5 % (94-97); ABG PCO2 32 mmHg (35-45); ABG PH 7.31 (7.35-7.45); ABG PO2 68 mmHg (83-108); ABG TCO2 17 mmol/L (19-24)
--- NOTE | 2020-08-13 13:56 | EEG ---
ELECTROENCEPHALOGRAM REPORT DATE OF SERVICE: 08/13/2020 PREAMBLE: This is a 70-year-old female with history of seizure disorder, came with altered mental status. Patient has an episode of unresponsiveness in the hospital. This study is performed to evaluate for any epileptiform activity. EEG FINDINGS: A 21 channel portable EEG recording in a patient utilizing 10-20 international system with referential and bipolar montages. Background consists of well-developed, moderately well regulated, moderate voltage activity in about 6-7 hertz theta activity. Background does not seem to be reactive to eye opening and closing. There is a lot of movement artifacts noted intermittently throughout the study. Some sharp looking waves were seen on the right, but were associated with myogenic artifact/head movement. Different stages of sleep were not seen. No focal or generalized epileptiform activity was seen. IMPRESSION: This is a mildly abnormal EEG due to background slowing. This is suggestive of generalized cerebral dysfunction as can be seen with toxic metabolic encephalopathy. No definitive epileptiform activity was seen. EEG was limited due to frequent movement artifact. May consider prolonged EEG if clinically indicated. MMODL / IJN: [id number] /
[2020-08-13 13:57] LABS: Allen Test Performed? no
--- NOTE | 2020-08-13 13:57 | P.PN ---
Subjective Progress Note Date: 08/13/20 Principal diagnosis: Failure to thrive with ongoing dehydration and lactic acidosis, suspect secondary to starvation This is a 70-year-old female patient, quite pleasant yet hostile and angry towards her family members as the patient is living at home with her and son. She is a chronic smoker in she has underlying COPD. 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 The patient has been progressively getting worse in terms of her nutritional intake. Over the past 1 year, the patient has been having difficulties with dysphagia and keeping food material and. She states that she has been having average bowel movements, somewhat irregular without any bleeding. No abdominal distention. Apparently she's been losing weight. She has a visiting physician was recommended hospice care for her. She hasn't been showed that she would like to take that option at this point in time. Apparentl y her health has been gradually declining and she is currently down to 56 kg and her body mass index is at 19. She came into the ED as the patient became more lethargic and disoriented and the patient was found to have lactic acidosis with a plasma lactic acid level of 6.9 and she had a mild anion gap metabolic acidosis the bicarb level of 14 and an anion gap of 18. BUN was 37. Creatinine was 0.39. The patient's sodium level was at 1:30 with a potassium level of 6.2. Urinalysis showed +1 protein and +1 ketones on. No signs of any infection. The chest x-ray was normal. The patient came in to the ICU for severe metabolic acidosis and lactic acidosis. Note that she improved with fluid resuscitation and the patient lactic acid level has declined nicely. She is awake. She has some tremors yet she has never been diagnosed having Parkinson. This may be a component of benign essential tremors. She denies having any headaches. Mental status although seems to be appropriate and she is slow in answering questions. The patient is seen today 08/10/2020 and follow-up on the regular medical floor. No pulmonary complaints. Maintaining O2 saturations in the 90s on room air. She's afebrile. Hemodynamically stable. Blood culture reveals no growth to date. Urine culture pending. White count 5.0. Hemoglobin 13.4. Sodium 137. Potassium 3.6. Creatinine 0.33. Most recent lactic acidosis 2.0. Computed tomography scan of the chest abdomen pelvis did not reveal any significant findings other than mild colitis. The patient is seen today 08/13/2020. She had been stable out on the regular medical floor. Early this morning an A team was called due hypotension and hypoglycemia. She was transferred back to the intensive care unit. She is initially maintaining O2 saturations in the 90s on room air. She was afebrile. Thank you her blood pressure remains low. She is initiated on norepinephrine currently at 5 mcg/kg/m. Her lactic acid was explained 7. She received 4 L of fluid resuscitation. She is initiated on ceftriaxone. D545 at 75 ML's per hour. White count 1.0. Hemoglobin 11.1. Platelets 70,000. Sodium 129. Potassium 3.9. Bicarb 17. Creatinine 0.59. Valproic acid level 19.8. Objective - Vital Signs Vital signs: Vital Signs Temp 98.1 F 08/13/20 04:46 Pulse 109 H 08/13/20 08:00 Resp 18 08/13/20 08:00 BP 86/58 08/13/20 04:46 Pulse Ox 93 L 08/13/20 04:46 Intake & Output 08/12/20 08/13/20 08/13/20 18:59 06:59 18:59 Intake Total 350 1175 10.495 Output Total 300 Balance 50 1175 10.495 Intake: Intake, IV Titration 825 10.495 Amount Dextrose 5%-0.45% NaCl 1, 825 000 ml @ 75 mls/hr IV . [id number] [facility] Rx#:[id number] Norepinephrine 4 mg In 10.495 Sodium Chloride 0.9% 250 ml @ 0.04 MCG/KG/MIN 8. 626 mls/hr IV .Q24H [facility] Rx#:[id number] Oral 350 350 Output: Urine 300 Other: Voiding Method Indwelling Catheter Indwelling Catheter Indwelling Catheter # Voids 0 0 # Bowel Movements 0 0 - Exam General: 70-year-old female patient, on room air, no acute distress, appears older than stated age, thin cachexia, temporal wasting Derm: warm, dry, multiple areas of excoriation on her legs. Head: atraumatic, normocephalic, symmetric Eyes: EOMI, no lid lag, anicteric sclera Mouth: no lip lesion, mucus membranes moist Cardiovascular: S1 S2 reg, no murmur, positive posterior tibial pulse bilateral, Lungs: Decreased bs bilateral, no rhonchi, no rales , no accessory muscle use Abdominal: soft, nontender to palpation, no guarding, no appreciable organomegaly Ext: no gross muscle atrophy, no edema, no contractures Msucle strenght 4/5 bilateral lower extremities, able to flex and extend at knee and ankle, small effusion right patella, pain to palpation of medial knee joint Neuro: CN II-XI grossly intact, no focal neuro deficits Psych: Alert, oriented, appropriate affect - Labs CBC & Chem 7: 08/13/20 04:37 08/13/20 08:19 Labs: Abnormal Lab Results - Last 24 Hours (Table) 08/12/20 08/12/20 08/13/20 Range/Units 17:21 20:19 04:37 WBC (3.8-10.6) k/uL Hgb (11.4-16.0) gm/dL Plt Count (150-450) k/uL Retic Count (0.5-2.0) % PT (9.0-12.0) sec INR (<1.2) APTT (22.0-30.0) sec Sodium 132 L (135-145) mmol/L Carbon Dioxide 19.3 L (21.6-31.8) mmol/L Anion Gap 14.70 H (4.00-12.00) mmol/L Creatinine 0.4 L (0.6-1.5) mg/dL BUN/Creatinine Ratio 37.50 H (12.00-20.00) Ratio POC Glucose (mg/dL) 110 H 114 H (75-99) mg/dL Plasma Lactic Acid Duy (0.7-2.0) mmol/L Calcium 7.7 L (8.7-10.3) mg/dL Phosphorus 2.3 L (2.4-5.1) mg/dL Alkaline Phosphatase 40 L (41-126) U/L Lactate Dehydrogenase (313-618) U/L Total Protein 3.5 L (6.2-8.2) g/dL Albumin 2.20 L (3.80-4.90) g/dL Globulin 1.3 L (1.6-3.3) g/dL 10/08/13/20 08/13/20 Range/Units 04:37 08:01 08:19 WBC 1.0 L* (3.8-10.6) k/uL Hgb 11.1 L (11.4-16.0) gm/dL Plt Count 70 L (150-450) k/uL Retic Count 0.2 L (0.5-2.0) % PT (9.0-12.0) sec INR (<1.2) APTT (22.0-30.0) sec Sodium (135-145) mmol/L Carbon Dioxide (21.6-31.8) mmol/L Anion Gap (4.00-12.00) mmol/L Creatinine (0.6-1.5) mg/dL BUN/Creatinine Ratio (12.00-20.00) Ratio POC Glucose (mg/dL) 104 H (75-99) mg/dL Plasma Lactic Acid Duy (0.7-2.0) mmol/L Calcium (8.7-10.3) mg/dL Phosphorus (2.4-5.1) mg/dL Alkaline Phosphatase (41-126) U/L Lactate Dehydrogenase (313-618) U/L Total Protein (6.2-8.2) g/dL Albumin (3.80-4.90) g/dL Globulin (1.6-3.3) g/dL 08/13/20 08/13/20 08/13/20 Range/Units 08:19 11:05 11:06 WBC (3.8-10.6) k/uL Hgb (11.4-16.0) gm/dL Plt Count (150-450) k/uL Retic Count (0.5-2.0) % PT (9.0-12.0) sec INR (<1.2) APTT (22.0-30.0) sec Sodium 129 L (135-145) mmol/L Carbon Dioxide 17 L (21.6-31.8) mmol/L Anion Gap (4.00-12.00) mmol/L Creatinine (0.6-1.5) mg/dL BUN/Creatinine Ratio (12.00-20.00) Ratio POC Glucose (mg/dL) 68 L 67 L (75-99) mg/dL Plasma Lactic Acid Duy (0.7-2.0) mmol/L Calcium 7.3 L (8.7-10.3) mg/dL Phosphorus (2.4-5.1) mg/dL Alkaline Phosphatase (41-126) U/L Lactate Dehydrogenase (313-618) U/L Total Protein 3.7 L (6.2-8.2) g/dL Albumin 1.8 L (3.80-4.90) g/dL Globulin (1.6-3.3) g/dL 08/13/20 08/13/20 08/13/20 Range/Units 11:24 12:24 12:24 WBC (3.8-10.6) k/uL Hgb (11.4-16.0) gm/dL Plt Count (150-450) k/uL Retic Count (0.5-2.0) % PT 14.4 H (9.0-12.0) sec INR 1.5 H (<1.2) APTT 56.7 H (22.0-30.0) sec Sodium (135-145) mmol/L Carbon Dioxide (21.6-31.8) mmol/L Anion Gap (4.00-12.00) mmol/L Creatinine (0.6-1.5) mg/dL BUN/Creatinine Ratio (12.00-20.00) Ratio POC Glucose (mg/dL) 184 H (75-99) mg/dL Plasma Lactic Acid Duy (0.7-2.0) mmol/L Calcium (8.7-10.3) mg/dL Phosphorus (2.4-5.1) mg/dL Alkaline Phosphatase (41-126) U/L Lactate Dehydrogenase 243 L (313-618) U/L Total Protein (6.2-8.2) g/dL Albumin (3.80-4.90) g/dL Globulin (1.6-3.3) g/dL 08/13/20 Range/Units 12:24 WBC (3.8-10.6) k/uL Hgb (11.4-16.0) gm/dL Plt Count (150-450) k/uL Retic Count (0.5-2.0) % PT (9.0-12.0) sec INR (<1.2) APTT (22.0-30.0) sec Sodium (135-145) mmol/L Carbon Dioxide (21.6-31.8) mmol/L Anion Gap (4.00-12.00) mmol/L Creatinine (0.6-1.5) mg/dL BUN/Creatinine Ratio (12.00-20.00) Ratio POC Glucose (mg/dL) (75-99) mg/dL Plasma Lactic Acid Duy 6.7 H* (0.7-2.0) mmol/L Calcium (8.7-10.3) mg/dL Phosphorus (2.4-5.1) mg/dL Alkaline Phosphatase (41-126) U/L Lactate Dehydrogenase (313-618) U/L Total Protein (6.2-8.2) g/dL Albumin (3.80-4.90) g/dL Globulin (1.6-3.3) g/dL Microbiology - Last 24 Hours (Table) 08/09/20 01:00 Blood Culture - Preliminary Blood No Growth after 96 hours Assessment and Plan Assessment: 1 failure to thrive with ongoing dehydration and lactic acidosis, likely secon christianne to starvation. On 08/13/2020 the patient developed significant hypotension requiring norepinephrine, recurrent lactic acidosis up to 6.7 initiated on ceftriaxone. Status post 4 L of fluid resuscitation today. 2 shock with hypotension secondary to suspected dehydration and lactic acidosis 3 urinary tract infection secondary to E. coli and strep agalactiae 3 leukopenia 4 thrombocytopenia 2 hyponatremia, sodium 129 3 severe malnourishment and protein calorie malnutrition and failure to thrive. This could be psychiatric in nature. This could be also organic in nature and the patient needs to be worked up for malignancy/that she is having some previous history of dysphagia and difficulties in tolerating her oral intake. 4 diabetes mellitus type 2 5 history of seizures post resection of a lobe of the brain 6 hypertension 7 COPD which is currently inactive in stable 8 osteoarthritis Plan The patient was seen and evaluated by Dr. Lawrence in the intensive care unit this morning Status post 4 L of fluid resuscitation Initiate norepinephrine Initiate ceftriaxone Obtain cortisol level Obtain ABGs and chest x-ray Overall prognosis quite guarded and poor We'll continue to follow and make further recommendations based on her clinical status I, the cosigning physician, performed a history & physical examination of the patient. Lungs sounds are clear, diminished. Maintaining good O2 saturations in the 90s on room air. I discussed the assessment and plan of care with my nurse practitioner, Jillian Duomnt. I attest to the above note as dictated by her.
--- NOTE | 2020-08-13 14:03 | XR ---
EXAMINATION TYPE: XR chest 1V portable DATE OF EXAM: 08/13/2020 COMPARISON: 08/13/2020 HISTORY: Shortness of breath TECHNIQUE: Single frontal view of the chest is obtained. FINDINGS: Diffuse osteopenia with arthropathy of the shoulders. No overt failure. Hyperinflation sug gests COPD. Limited inspiration. Basilar subsegmental changes most typical of atelectasis. IMPRESSION: 1. COPD with right basilar atelectasis favored over infiltrate. Correlate clinically.
[2020-08-13] MEDS ORDERED: SODIUM BICARB 8.4% 50 ML SYR (1 MEQ/ML) IV STA (14:09)
[2020-08-13] MEDS ORDERED: SODIUM BICARB 8.4% 50 ML SYR (1 MEQ/ML) ONE (14:09)
--- NOTE | 2020-08-13 14:46 | CT ---
EXAMINATION TYPE: CT brain wo con DATE OF EXAM: 08/13/2020 COMPARISON: 05/28/2010 HISTORY: stroke CT DLP: 1025.[address] of the brain was performed. The ventricles, basal cisterns and sulci overlying the cerebral convexities demonstrate mild enlargem ent. Right temporal craniotomy changes noted with postoperative encephalomalacia of the right tempora l lobe. There is no evidence for intracranial hemorrhage or sulcal effacement. There is decreased attenuation about the periventricular white matter and deep white matter of both c erebral hemispheres, compatible with chronic small vessel ischemia. Differential diagnosis does inclu de demyelination. No mass effects are seen.No midline shift. If symptoms persist consider MRI. IMPRESSION: 1. Age related atrophic and chronic small vessel ischemic change without acute intracranial process s een at this time. Postoperative changes as noted.
--- NOTE | 2020-08-13 14:46 | P.CNNES ---
History of Present Illness Consult date: 08/13/20 Requesting physician: Melony Dodd Reason for Consult: Seizure History of Present Illness: Patient is a 70-year-old female, came to the hospital by ambulance on 08/09/2020 for altered mental status, lethargy. She was diagnosed with dehydration, hyperkalemia, generalized weakness, COPD. Patient this morning had an episode of unresponsiveness. According to nursing report, when the geriatric nursing assistant went to set breakfast, patient was not waking up, and was looking "nuñez". She was unable to be aroused, not breathing. CODE BLUE was called. Patient did start responding about 3 minutes later. No convulsive activity was noted with this spell. Her blood pressure was systolic 70s at that time. Patient's primary p hysician was concerned if patient had a seizure, as she is already on Depakote and she has not been taking medication regularly, not complying with it while in the hospital. Neurology was consulted to rule out any seizure disorder. The nurse also reported that patient was given 3 L of fluid bolus, and her systolic blood pressure came up to 90s. However that it started dropping again in the 70s. At this time patient was transferred to ICU. Patient is currently on Depakote 250 mg twice a day. Also on primidone 250 mg daily, clonazepam 0.5 mg 3 times a day when necessary. Patient is also on trazodone 50 mg at bedtime, Seroquel 50 mg at bedtime. Patient's blood test shows Depakote level 19.8, WBC count is very low 1.0, hemoglobin 11.1 and platelets 70. Sodium 129 potassium 3.9. Renal functions are normal. Hemoglobin A1c 5.5 hepatic panel normal. I spoke to patient's in detail. He states that patient has history of seizure disorder diagnosed in 1989. She started having seizures out of the blue. For many years they tried "every medication available", but seizures per sisted. She underwent right temporal lobectomy in 1995 at [facility]. Thereafter seizure stopped. Patient was continued on Depakote, 250 mg twice a day. Her neurologist left it up to the patient if she wants to stop Depakote, as they were told, there was some concern of seizures coming back. Patient decreased Depakote to 250 mg daily about 6 months ago, but she developed behavioral problems, erratic behavior, therefore she was put back on Depakote 250 mg twice a day 5-6 months ago. Patient's states that her seizures were triggered by certain food, as tasting certain food will trigger a seizure with blank stare, grinding her teeth for a minute followed by post ictal confusion for another 10-15 minutes. She never had any grand mal seizures. Her states that she walks with a walker. Review of Systems ROS unobtainable: due to mental status Past Medical History Past Medical History: COPD, Diabetes Mellitus, Hypertension, Seizure Disorder Additional Past Medical History / Comment(s): tremors, nausea vomiting post oral intake, weight loss #20 History of Any Multi-Drug Resistant Organisms: Unobtainable Past Surgical History: Section, Cholecystectomy Additional Past Surgical History / Comment(s): Right temporal lobectomy r/t seizures, skin cancer nose, carpal tunnel, right shoulder Smoking Status: Current every day smoker - Past Family History Son(s) Family Medical History: COPD Medications and Allergies Home Medications Medication Instructions Recorded Confirmed Type Aim Herbal Fiber Gel PO Q4HR PRN 08/09/20 History Ascorbic Acid [Vitamin C] 1,000 mg PO DAILY 08/09/20 08/09/20 History Biotin 10,000 W/Keratin 100 Mg 1 tab PO DAILY 08/09/20 08/09/20 History Clonazepam 0.5 Disintegrating 0.5 mg PO TID PRN 08/09/20 08/09/20 History Tablet Dexamethasone [Decadron] 4 mg PO QAM 08/09/20 08/09/20 History Divalproex [Depakote] 250 mg PO BID 08/09/20 08/09/20 History HYDROcodone/APAP 5-325MG [[place] 1 tab PO BID PRN 08/09/20 08/09/20 History 5-325] Melatonin 10 mg PO DAILY 08/09/20 08/09/20 History Ondansetron [Zofran] 4 mg PO BID-W/MEALS 08/09/20 08/09/20 History Pantoprazole [Protonix] 40 mg PO DAILY 08/09/20 08/09/20 History Primidone [Mysoline] 250 mg PO DAILY 08/09/20 08/09/20 History QUEtiapine [SEROquel] 50 mg PO HS 08/09/20 08/09/20 History Simethicone [Gas-X] tab PO BID PRN 08/09/20 History Tiotropium Orr [Spiriva] 1 cap INHALATION DAILY 08/09/20 08/09/20 History Vortioxetine Hydrobromide 20 mg PO DAILY 08/09/20 08/09/20 History [Trintellix] ramipriL [Ramipril] 2.5 mg PO DAILY 08/09/20 08/09/20 History traZODone HCL 50 mg PO HS 08/09/20 08/09/20 History Allergies Allergy/AdvReac Type Severity Reaction Status Date / Time No Known Allergies Allergy Verified 08/09/20 00:07 Physical Examination - Vital Signs Vital Signs: Vital Signs Temp Pulse Resp BP BP Pulse Ox 08/13/20 08:00 109 H 18 08/13/20 04:46 98.1 F 109 H 18 86/58 93 L 08/13/20 00:00 107 H 14 08/12/20 20:18 97.9 F 107 H 14 91/60 93 L 08/12/20 19:58 97 08/12/20 16:00 77 16 08/12/20 12:33 98.7 F 77 16 103/65 98 Intake and Output 08/12/20 08/13/20 08/13/20 22:59 06:59 14:59 Intake Total 575 600 Output Total 300 Balance 275 600 Intake: Intake, IV Titration 225 600 Amount Dextrose 5%-0.45% NaCl 1, 225 600 000 ml @ 75 mls/hr IV . [id number] [facility] Rx#:[id number] Oral 350 Output: Urine 300 Other: Voiding Method Indwelling Catheter Indwelling Catheter Indwelling Catheter # Voids 0 0 # Bowel Movements 0 0 On examination patient is an elderly female, seen in the ICU. Patient is awake, eyes are open, but appears slightly encephalopathic, very slow mentation. She often would not answer questions, or follow directions. She did speak a few words, but were quite slurred, knows her name, age. She was able to name objects presented. No obvious bruit, S1 and S2 audible. Abdomen is soft. Chest is clear. On cranial examination, pupils are round and reacting. Extraocular muscles are intact. Visual chiu could not be tested reliably because patient would not cooperate. Face is symmetric and tongue protrudes the midline. 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 She did wiggle her feet bilaterally. Patient did not cooperate with full muscle strength testing. Reflexes are diminished and plantars are downgoing. Tone is equal bilaterally. Patient appears somewhat malnutrition. Sensory touch appears equal. Patient did not cooperate with cerebellar functions testing. Results - Laboratory Findings CBC and BMP: 08/13/20 04:37 08/13/20 08:19 Abnormal Lab Findings: Abnormal Labs 08/09/20 08/09/20 08/09/20 00:10 00:13 00:13 WBC Hgb Hct 48.4 H Plt Count Retic Count VBG pCO2 VBG HCO3 Sodium 130 L Potassium 6.2 H* Chloride Carbon Dioxide 14 L Anion Gap BUN 37 H Creatinine BUN/Creatinine Ratio Glucose 174 H POC Glucose (mg/dL) 164 H Plasma Lactic Acid Duy Calcium Phosphorus Magnesium Total Bilirubin 1.7 H AST 50 H Alkaline Phosphatase Total Protein Albumin Globulin TSH 5.810 H Urine Protein Urine Ketones Urine Bilirubin Hyaline Casts Urine Mucus 08/09/20 08/09/20 08/09/20 00:13 00:14 02:09 WBC Hgb Hct Plt Count Retic Count VBG pCO2 VBG HCO3 Sodium Potassium Chloride Carbon Dioxide Anion Gap BUN Creatinine BUN/Creatinine Ratio Glucose POC Glucose (mg/dL) Plasma Lactic Acid Duy 6.9 H* 4.7 H* Calcium Phosphorus Magnesium Total Bilirubin AST Alkaline Phosphatase Total Protein Albumin Globulin TSH Urine Protein 1+ H Urine Ketones 1+ H Urine Bilirubin 1+ H Hyaline Casts 36 H Urine Mucus Rare H 08/09/20 08/09/20 08/09/20 02:10 04:08 04:54 WBC Hgb Hct Plt Count Retic Count VBG pCO2 32 L VBG HCO3 19 L Sodium Potassium Chloride Carbon Dioxide Anion Gap BUN Creatinine BUN/Creatinine Ratio Glucose POC Glucose (mg/dL) 131 H Plasma Lactic Acid Duy 5.8 H* Calcium Phosphorus Magnesium Total Bilirubin AST Alkaline Phosphatase Total Protein Albumin Globulin TSH Urine Protein Urine Ketones Urine Bilirubin Hyaline Casts Urine Mucus 08/09/20 08/09/20 08/09/20 06:40 07:29 08:11 WBC Hgb Hct Plt Count Retic Count VBG pCO2 VBG HCO3 Sodium 135 L Potassium 3.2 L Chloride Carbon Dioxide Anion Gap BUN 34 H Creatinine BUN/Creatinine Ratio Glucose 119 H POC Glucose (mg/dL) 111 H Plasma Lactic Acid Duy 2.7 H* Calcium Phosphorus Magnesium Total Bilirubin AST Alkaline Phosphatase Total Protein Albumin Globulin TSH Urine Protein Urine Ketones Urine Bilirubin Hyaline Casts Urine Mucus 08/09/20 08/09/20 08/10/20 10:28 17:29 09:09 WBC Hgb Hct Plt Count Retic Count VBG pCO2 VBG HCO3 Sodium Potassium Chloride 108 H Carbon Dioxide Anion Gap BUN Creatinine 0.33 L BUN/Creatinine Ratio Glucose POC Glucose (mg/dL) 103 H Plasma Lactic Acid Duy 2.2 H* Calcium Phosphorus 1.7 L Magnesium 1.5 L Total Bilirubin AST Alkaline Phosphatase Total Protein Albumin Globulin TSH Urine Protein Urine Ketones Urine Bilirubin Hyaline Casts Urine Mucus 08/10/20 08/10/20 08/10/20 12:25 17:00 20:13 WBC Hgb Hct Plt Count Retic Count VBG pCO2 VBG HCO3 Sodium Potassium Chloride Carbon Dioxide Anion Gap BUN Creatinine BUN/Creatinine Ratio Glucose POC Glucose (mg/dL) 115 H 100 H 126 H Plasma Lactic Acid Duy Calcium Phosphorus Magnesium Total Bilirubin AST Alkaline Phosphatase Total Protein Albumin Globulin TSH Urine Protein Urine Ketones Urine Bilirubin Hyaline Casts Urine Mucus 08/11/20 08/11/20 08/11/20 04:26 04:26 07:20 WBC 2.4 L Hgb Hct Plt Count 128 L Retic Count VBG pCO2 VBG HCO3 Sodium 134 L Potassium 3.2 L Chloride Carbon Dioxide Anion Gap BUN <5.0 L Creatinine 0.2 L BUN/Creatinine Ratio Glucose 125 H POC Glucose (mg/dL) 134 H Plasma Lactic Acid Duy Calcium 7.6 L Phosphorus 1.6 L Magnesium Total Bilirubin AST Alkaline Phosphatase Total Protein 4.2 L Albumin 2.70 L Globulin 1.5 L TSH Urine Protein Urine Ketones Urine Bilirubin Hyaline Casts Urine Mucus 08/12/20 08/12/20 08/12/20 04:19 04:19 17:21 WBC 1.8 L Hgb Hct Plt Count 92 L Retic Count VBG pCO2 VBG HCO3 Sodium 133 L Potassium Chloride Carbon Dioxide 20.9 L Anion Gap 13.10 H BUN <5.0 L Creatinine 0.2 L BUN/Creatinine Ratio Glucose POC Glucose (mg/dL) 110 H Plasma Lactic Acid Duy Calcium 7.7 L Phosphorus 2.0 L Magnesium Total Bilirubin AST Alkaline Phosphatase Total Protein Albumin Globulin TSH Urine Protein Urine Ketones Urine Bilirubin Hyaline Casts Urine Mucus 08/12/20 08/13/2020 20:19 04:37 04:37 WBC 1.0 L* Hgb 11.1 L Hct Plt Count 70 L Retic Count VBG pCO2 VBG HCO3 Sodium 132 L Potassium Chloride Carbon Dioxide 19.3 L Anion Gap 14.70 H BUN Creatinine 0.4 L BUN/Creatinine Ratio 37.50 H Glucose POC Glucose (mg/dL) 114 H Plasma Lactic Acid Duy Calcium 7.7 L Phosphorus 2.3 L Magnesium Total Bilirubin AST Alkaline Phosphatase 40 L Total Protein 3.5 L Albumin 2.20 L Globulin 1.3 L TSH Urine Protein Urine Ketones Urine Bilirubin Hyaline Casts Urine Mucus 08/13/20 08/13/20 08/13/20 08:01 08:19 08:19 WBC Hgb Hct Plt Count Retic Count 0.2 L VBG pCO2 VBG HCO3 Sodium 129 L Potassium Chloride Carbon Dioxide 17 L Anion Gap BUN Creatinine BUN/Creatinine Ratio Glucose POC Glucose (mg/dL) 104 H Plasma Lactic Acid Duy Calcium 7.3 L Phosphorus Magnesium Total Bilirubin AST Alkaline Phosphatase Total Protein 3.7 L Albumin 1.8 L Globulin TSH Urine Protein Urine Ketones Urine Bilirubin Hyaline Casts Urine Mucus Assessment and Plan Assessment: * Episode of unresponsiveness, possible due to hypotension. Patient blood pressure was in the systolic 70s. Mentation improved with fluid bolus. Seizure appears somewhat less likely. Patient is also on multiple psychoactive medication, which could be affecting her mental status as well. * History of localization-related epilepsy, status post right temporal lobectomy in 1995. Seizures have been under remission since surgery. * Major depressive disorder * Hypothyroidism with TSH 5.810. * Pancytopenia Plan: * Stat EEG was performed, which did not reveal any epileptiform activity. It was a poor study because of a lot of movement artifact. Her current spell sheila ears to be likely related to episode of hypotension. I will continue Depakote at the current dose of 250 mg twice a day, as she has been seizure-free for a number of years. No need to increase the dose or add another antiepileptic agent. We will continue close neurological watch. * Medical management as per IM/critical care * Psychiatry also on board.
--- NOTE | 2020-08-13 14:52 | P.CONS ---
History of Present Illness - Reason for Consult Consult date: 08/13/20 Pancytopenia Requesting physician: Melony Dodd - Chief Complaint Failure to Thrive - History of Present Illness 70 year old female patient who was admitted with persistent failure to thrive and weight loss. She has no history of cancer, history of traumaticv brain inj ury. She is pancytopenic and therefore hematology, we have been asked to further evaluate. She has a known history of DM type 2, COPD, and essential Tremor. She initially presented by her family for anorexia and lethargy. On admission ffound to be hypotensive and disoriented. [place] cultures, IV hydration and detailed assessment was performed. She was admitted to the ICU for severe metabolic acidosis. psych has also evaluated her for verbalizing suicidal thoughts per the medical record, although have cleared her at this time. Medications have been thoroughly reviewed and changes made per team these past few days to assist in increased appetite, and decreasing her overall depression. Apparently her family and the patient have decided on hospice care due to her overall continued declining functional status and failure to thrive, this was apparently discussed with her home visiting physicians. She has a urinary catheter in for urinary retention. A complaint of dysphagia was expressed, although no objective findings of this during exam and/or further diagnostics with video fluoroscopy or modified barium swallow. On 08/12 complained of abdominal pain and CT scan of abdomen showing mild colonic distention. On 08/13 she was found unresponsive, IV bolus's were given and patient appeared back to baseline per primary team. SHe is now in the care of ICU for closer monitoring. On 08/10/20 - her WBC was 5, there has been a trend downward and today 1.0, neutrophils and lymphocytes remain adequate. Her platelet count on admission over 300 on 08/09 and today 70K, and Hemoglobin is trending down as well (possible dilutional from fluid push). Because of her acute drop in WBC and PLatelet count we have been asked to further evaluate by the primary team. Repeat septic work-up was initiated. afebrile. Reticulocytes 0.2. Which would indicate a hyporliferative scenario. In this picture we will need to evaluate further for essential vitamin deficiencies, infectious etiologies, and other inf lammatory conditions. Her renal function remains stable. CT Brain Negative. Review of Systems ROS unobtainable: due to mental status Past Medical History Past Medical History: COPD, Diabetes Mellitus, Hypertension, Seizure Disorder Additional Past Medical History / Comment(s): tremors, nausea vomiting post oral intake, weight loss #20 History of Any Multi-Drug Resistant Organisms: Unobtainable Past Surgical History: Section, Cholecystectomy Additional Past Surgical History / Comment(s): Right temporal lobectomy r/t seizures, skin cancer nose, carpal tunnel, right shoulder Smoking Status: Current every day smoker - Past Family History Son(s) Family Medical History: COPD Medications and Allergies Home Medications Medication Instructions Recorded Confirmed Type Aim Herbal Fiber Gel PO Q4HR PRN 08/09/20 History Ascorbic Acid [Vitamin C] 1,000 mg PO DAILY 08/09/20 08/09/20 History Biotin 10,000 W/Keratin 100 Mg 1 tab PO DAILY 08/09/20 08/09/20 History Clonazepam 0.5 Disintegrating 0.5 mg PO TID PRN 08/09/20 08/09/20 History Tablet Dexamethasone [Decadron] 4 mg PO QAM 08/09/20 08/09/20 History Divalproex [Depakote] 250 mg PO BID 08/09/20 08/09/20 History HYDROcodone/APAP 5-325MG [[place] 1 tab PO BID PRN 08/09/20 08/09/20 History 5-325] Melatonin 10 mg PO DAILY 08/09/20 08/09/20 History Ondansetron [Zofran] 4 mg PO BID-W/MEALS 08/09/20 08/09/20 History Pantoprazole [Protonix] 40 mg PO DAILY 08/09/20 08/09/20 History Primidone [Mysoline] 250 mg PO DAILY 08/09/20 08/09/20 History QUEtiapine [SEROquel] 50 mg PO HS 08/09/20 08/09/20 History Simethicone [Gas-X] tab PO BID PRN 08/09/20 History Tiotropium [place] [Spiriva] 1 cap INHALATION DAILY 08/09/20 08/09/20 History Vortioxetine Hydrobromide 20 mg PO DAILY 08/09/20 08/09/20 History [Trintellix] ramipriL [Ramipril] 2.5 mg PO DAILY 08/09/20 08/09/20 History traZODone HCL 50 mg PO HS 08/09/20 08/09/20 History Allergies Allergy/AdvReac Type Severity Reaction Status Date / Time No Known Allergies Allergy Verified 08/09/20 00:07 Physical Exam Vitals: Vital Signs Temp Pulse Resp BP Pulse Ox 08/13/20 08:00 109 H 18 08/13/20 04:46 98.1 F 109 H 18 86/58 93 L 08/13/20 00:00 107 H 14 08/12/20 20:18 97.9 F 107 H 14 91/60 93 L 08/12/20 19:58 97 08/12/20 16:00 77 16 Intake and Output 08/12/20 08/13/20 08/13/20 22:59 06:59 14:59 Intake Total 575 600 10.495 Output Total 300 Balance 275 600 10.495 Intake: Intake, IV Titration 225 600 10.495 Amount Dextrose 5%-0.45% NaCl 1, 225 600 000 ml @ 75 mls/hr IV . [id number] [facility] Rx#:[id number] Norepinephrine 4 mg In 10.495 Sodium Chloride 0.9% 250 ml @ 0.04 MCG/KG/MIN 8. 626 mls/hr IV .Q24H [facility] Rx#:[id number] Oral 350 Output: Urine 300 Other: Voiding Method Indwelling Catheter Indwelling Catheter Indwelling Catheter # Voids 0 0 # Bowel Movements 0 0 - Constitutional General appearance: cooperative - EENT Eyes: poor dentition ENT: hard of hearing, NA/AT - Respiratory Respiratory: bilateral: diminished - Cardiovascular Rhythm: irregularly irregular leg Peripheral Edema: bilateral: 1+ - Gastrointestinal General gastrointestinal: soft, tenderness - Integumentary Integumentary: pale - Neurologic unable to follow - Musculoskeletal Musculoskeletal: generalized weakness - Psychiatric lethargic, intermittent command following Results CBC & Chem 7: 08/13/20 04:37 08/13/20 08:19 Labs: Abnormal Lab Results - Last 24 Hours (Table) 08/12/20 08/12/20 08/13/20 Range/Units 17:21 20:19 04:37 WBC (3.8-10.6) k/uL Hgb (11.4-16.0) gm/dL Plt Count (150-450) k/uL Retic Count (0.5-2.0) % PT (9.0-12.0) sec INR (<1.2) APTT (22.0-30.0) sec ABG pH (7.35-7.45) ABG pCO2 (35-45) mmHg ABG pO2 (83-108) mmHg ABG HCO3 (21-25) mmol/L ABG Total CO2 (19-24) mmol/L ABG O2 Saturation (94-97) % Sodium 132 L (135-145) mmol/L Carbon Dioxide 19.3 L (21.6-31.8) mmol/L Anion Gap 14.70 H (4.00-12.00) mmol/L Creatinine 0.4 L (0.6-1.5) mg/dL BUN/Creatinine Ratio 37.50 H (12.00-20.00) Ratio POC Glucose (mg/dL) 110 H 114 H (75-99) mg/dL Plasma Lactic Acid Duy (0.7-2.0) mmol/L Calcium 7.7 L (8.7-10.3) mg/dL Phosphorus 2.3 L (2.4-5.1) mg/dL Alkaline Phosphatase 40 L (41-126) U/L Lactate Dehydrogenase (313-618) U/L Total Protein 3.5 L (6.2-8.2) g/dL Albumin 2.20 L (3.80-4.90) g/dL Globulin 1.3 L (1.6-3.3) g/dL 08/13/20 08/13/20 08/13/20 Range/Units 04:37 08:01 08:19 WBC 1.0 L* (3.8-10.6) k/uL Hgb 11.1 L (11.4-16.0) gm/dL Plt Count 70 L (150-450) k/uL Retic Count 0.2 L (0.5-2.0) % PT (9.0-12.0) sec INR (<1.2) APTT (22.0-30.0) sec ABG pH (7.35-7.45) ABG pCO2 (35-45) mmHg ABG pO2 (83-108) mmHg ABG HCO3 (21-25) mmol/L ABG Total CO2 (19-24) mmol/L ABG O2 Saturation (94-97) % Sodium (135-145) mmol/L Carbon Dioxide (21.6-31.8) mmol/L Anion Gap (4.00-12.00) mmol/L Creatinine (0.6-1.5) mg/dL BUN/Creatinine Ratio (12.00-20.00) Ratio POC Glucose (mg/dL) 104 H (75-99) mg/dL Plasma Lactic Acid Duy (0.7-2.0) mmol/L Calcium (8.7-10.3) mg/dL Phosphorus (2.4-5.1) mg/dL Alkaline Phosphatase (41-126) U/L Lactate Dehydrogenase (313-618) U/L Total Protein (6.2-8.2) g/dL Albumin (3.80-4.90) g/dL Globulin (1.6-3.3) g/dL 08/13/20 08/13/20 08/13/20 Range/Units 08:19 11:05 11:06 WBC (3.8-10.6) k/uL Hgb (11.4-16.0) gm/dL Plt Count (150-450) k/uL Retic Count (0.5-2.0) % PT (9.0-12.0) sec INR (<1.2) APTT (22.0-30.0) sec ABG pH (7.35-7.45) ABG pCO2 (35-45) mmHg ABG pO2 (83-108) mmHg ABG HCO3 (21-25) mmol/L ABG Total CO2 (19-24) mmol/L ABG O2 Saturation (94-97) % Sodium 129 L (135-145) mmol/L Carbon Dioxide 17 L (21.6-31.8) mmol/L Anion Gap (4.00-12.00) mmol/L Creatinine (0.6-1.5) mg/dL BUN/Creatinine Ratio (12.00-20.00) Ratio POC Glucose (mg/dL) 68 L 67 L (75-99) mg/dL Plasma Lactic Acid Duy (0.7-2.0) mmol/L Calcium 7.3 L (8.7-10.3) mg/dL Phosphorus (2.4-5.1) mg/dL Alkaline Phosphatase (41-126) U/L Lactate Dehydrogenase (313-618) U/L Total Protein 3.7 L (6.2-8.2) g/dL Albumin 1.8 L (3.80-4.90) g/dL Globulin (1.6-3.3) g/dL 08/13/20 08/13/20 08/13/20 Range/Units 11:24 12:24 12:24 WBC (3.8-10.6) k/uL Hgb (11.4-16.0) gm/dL Plt Count (150-450) k/uL Retic Count (0.5-2.0) % PT 14.4 H (9.0-12.0) sec INR 1.5 H (<1.2) APTT 56.7 H (22.0-30.0) sec ABG pH (7.35-7.45) ABG pCO2 (35-45) mmHg ABG pO2 (83-108) mmHg ABG HCO3 (21-25) mmol/L ABG Total CO2 (19-24) mmol/L ABG O2 Saturation (94-97) % Sodium (135-145) mmol/L Carbon Dioxide (21.6-31.8) mmol/L Anion Gap (4.00-12.00) mmol/L Creatinine (0.6-1.5) mg/dL BUN/Creatinine Ratio (12.00-20.00) Ratio POC Glucose (mg/dL) 184 H (75-99) mg/dL Plasma Lactic Acid Duy (0.7-2.0) mmol/L Calcium (8.7-10.3) mg/dL Phosphorus (2.4-5.1) mg/dL Alkaline Phosphatase (41-126) U/L Lactate Dehydrogenase 243 L (313-618) U/L Total Protein (6.2-8.2) g/dL Albumin (3.80-4.90) g/dL Globulin (1.6-3.3) g/dL 08/13/20 08/13/20 Range/Units 12:24 13:54 WBC (3.8-10.6) k/uL Hgb (11.4-16.0) gm/dL Plt Count (150-450) k/uL Retic Count (0.5-2.0) % PT (9.0-12.0) sec INR (<1.2) APTT (22.0-30.0) sec ABG pH 7.31 L (7.35-7.45) ABG pCO2 32 L (35-45) mmHg ABG pO2 68 L (83-108) mmHg ABG HCO3 16 L (21-25) mmol/L ABG Total CO2 17 L (19-24) mmol/L ABG O2 Saturation 91.5 L (94-97) % Sodium (135-145) mmol/L Carbon Dioxide (21.6-31.8) mmol/L Anion Gap (4.00-12.00) mmol/L Creatinine (0.6-1.5) mg/dL BUN/Creatinine Ratio (12.00-20.00) Ratio POC Glucose (mg/dL) (75-99) mg/dL Plasma Lactic Acid Duy 6.7 H* (0.7-2.0) mmol/L Calcium (8.7-10.3) mg/dL Phosphorus (2.4-5.1) mg/dL Alkaline Phosphatase (41-126) U/L Lactate Dehydrogenase (313-618) U/L Total Protein (6.2-8.2) g/dL Albumin (3.80-4.90) g/dL Globulin (1.6-3.3) g/dL Microbiology - Last 24 Hours (Table) 08/09/20 01:00 Blood Culture - Preliminary Blood No Growth after [address] scan - abdomen: report reviewed CT scan - chest: report reviewed CT scan - pelvis: report reviewed Assessment and Plan (1) Pancytopenia Current Visit: Yes Status: Acute Code(s): D61.818 - OTHER PANCYTOPENIA SNOMED Code(s): 559666750 Plan: Pancytopenia work-up in place. Will await results and follow-up with further recs, in the interim keep platelets greater than 10K and hemoglobin greater than 7. [place] this could be secondary to underlying severe malnutrtion from lack of essential vitamins. - Full pancytopenia work-up to assess for hypoproliferation and essential vitamin deficiencies, included with assessment copper and thiamine - Coags are prolonged, no schistocytes seen in reported differential (Reticulocytes, LDH, and Renal function is usually elevated in a picture of TTP) therefore this is a much less likely etiology. Decreased Vitamin K from malnutrition may also lead to coagulopathy - Repeat CBC in am and Coags - LDH is low, Liver function stable - I reviewed prior and discontinued medications and did not see exposure to heparin related products Thank you for allowing us to participate in the care of this patient.
[2020-08-13] MEDS: NOREPINEPHRIN 4 MG-0.9% NS PMX 4 MG/250 ML ML IV ONE ×2 (14:58→16:14)
--- NOTE | 2020-08-13 15:43 | XR ---
EXAMINATION TYPE: XR chest 1V portable DATE OF EXAM: 08/13/2020 CLINICAL HISTORY: Line placement TECHNIQUE: Portable upright view of the chest COMPARISON: 08/13/2020 chest radiograph at 1:42 PM FINDINGS: Right internal jugular central venous catheter distal tip overlies the right atrium versus inferior vena cava. Emphysematous changes. The cardiomediastinal silhouette is within normal limits for size. Pulmonary vasculature is normal. Redemonstrated right basilar airspace opacity likely atele ctasis. No pleural effusion or pneumothorax seen. Decreased osseous mineralization. IMPRESSION: 1. Right internal jugular central venous catheter distal tip overlies the right atrium versus inferio r vena cava. Recommend interval retraction of 7.5 cm. 2. Persistent bibasilar atelectasis. A [place] level critical message alert has been initiated for Francis Lawrence MD~[id number] via the [employer] Critical Results System on 08/13/2020 3:40 PM. This message alert has been sent to Francis Lawrence MD~[id number] via the preferences provided by the clinician for the receipt of Radiology Critical Findin gs. Message ID [id number].
--- NOTE | 2020-08-13 15:51 | P.PN ---
Subjective Progress Note Date: 08/13/20 (delayed charting patient seet at 0800 and at 1130) Principal diagnosis: weakness Patient is a 70-year-old female with past medical history of diabetes mellitus type 2, COPD, and tremor who was brought into the emergency room by family members due to lethargy and anorexia. Patient has been following with visiting physicians and underwent video fluoroscopy on 07/2520 for possible dysphagia however no dysphagia was noted exam. Apparently visiting physicians had one to discuss hospice care with the patient due to her overall functional decline. Yesterday she became more lethargic and disoriented and subsequently EMS was activated and the patient was brought to the hospital. On EMS arrival the patient was significantly hypotensive. On arrival to the ER she underwent an extensive evaluation. She was tachycardic with a pulse of 109 and blood pressure of 97/65. Initial laboratory analysis showed sodium 130, potassium 6.2, carbon dioxide 14, anion gap 18, BUN 37, creatinine 0.39, glucose 164, plasma lactic acid 6.9. Her total bilirubin was 1.7 with an AST of 50. Urinalysis showed 1+ protein 1+ ketones 1+ bilirubin and 36 hyalin casts. She was started on IV fluids. Chest x-ray was obtained which was normal. She was subsequently admitted to the ICU for severe metabolic acidosis. After admission she did express suicidal ideation. Suicide sitter was placed and psychiatry was consulted. She was recommended for sade psych when medically stable. She was nathan ble to urinate and a joe was placed. She was noted to have vaginal discharge and was started on monastat. Her lactic acid cleared. She was not eating much. She was started on Remeron by psychiatry. She has already undergone a modified barium swallow study which did not demonstrate any signs of dysphasia. She continued to have low appetite and electrolyte disturbances which were replaced daily. She was started on marinol for appetite stimulation on 08/12. She also developed abdominal pain on 08/[address] abd and pelvis ordered to followup on mild colonic distension noted on last CT. Initially family had said they wanted to her to go home with hospice. We were adjusting medications to see if we could increase appetite and stabilize mood. Anand Walter NOTE: Anand walter called at 0800. Arrived to room to find patient unresponsive. O2 at 98%, BP 60/40, Strong pule that was regular. I ordered a second IV and then 2L IVF bolus. Patient with + Gag. She slow began to awaken. No tongue biting, +Joe, no loss of bowel. Per nursing no tonic-clonic movements prior to my arrival. PTs blood pressure began to increase to 85/56 and patient was awake and alert. She appeared back to baseline and was following commands. Her blood pressure again went down and she became lethargic and arrangement were made for ICU. Patient seen and examined at bedside. She is complaining of belly pain, a bdominal. No nausea, no vomiting, no diarrhea. She states that she has the pain intermittently. General: non toxic, no distress, appears older than stated age, thin cachexia, temporal wasting loss of buccal fat Derm: warm, dry, multiple areas of excoriation on her legs. Head: atraumatic, normocephalic, symmetric Eyes: EOMI, no lid lag, anicteric sclera Mouth: no lip lesion, mucus membranes moist Cardiovascular: S1S2 reg, no murmur, positive posterior tibial pulse bilateral, Lungs: Decreased bs bilateral, no rhonchi, no rales , no accessory muscle use Abdominal: soft, +tender to palpation epigastric, no guarding, no appreciable organomegaly Ext: + gross muscle atrophy, no edema, no contractures Neuro: CN II-XI grossly intact, no focal neuro deficits Psych: Alert, oriented, inappropriate comments Hypotension - suspect due to dehydration and decreased oral intake -Continue with IV fluid bolus -Transferred ICU and consider pressor therapy -Case discussed with Dr. Juarez -Follow blood pressures - CXR right baslialr atelectasis Acute episode of delirium -Possibly post ictal versus hypoglycemic -Consult neuro -Seizure precautions -Check valproic acid level -CT head negative Pancytopenia -Suspect hypoproliferative disease secondary to decreased oral intake and vitamin deficiency -Check retake count, ferritin, TIBC, iron sat, RBC folate, and B12 level -Consult hematology oncology Anorexia with severe protein calorie malnutrition and failure to thrive -Dietary recs -Supplements -Encourage oral intake - Plan will be for PEG tube once stable. - was on dexamethasone for appetite stimulation, but this can lead to steroid induced psychosis, osteoprosis, hyperglycemia, skin thinning and will be held - remeron initiated by psych - vesna - Patient passed barrium swallow study as outpatient on 07/25/2020 - CT chest/abd pelvis negative for malignancy Hx of TBI with right temporal lobectomy - Out patient follow-up, suspect personality changes Generalized weakness - PT/OT evaluation Electrolyte derangement - replace and recheck Urinary retention - joe in place - nystatin Depression with - Psychiatry recs: no longer suicidal, remeron, seroquel, possible psych placement on discharge Diabetes mellitus type 2 - A1c 5.5 -Sliding-scale insulin -diet controlled at home COPD without exacerbation - prn bronchodilators - unknown severity - spiriva Asymptomiatic bacturia - no need for treatment Hyperkalemia, resolved Lactic acidosis suspect secondary to dehydration and starvation, resolved Hyponatremia secondary to dehydration, resolved Suicidal ideation, resolved Elevated bilirubin and AST, resolved Right knee pain, resolved Spoke with Patients Alphonso. He confirmed that she is a full code and that they want everything done. He did not indicate any plans for hospice or end of life care. After much discussion he states that he would want a feeing tube inserted for oral supplementation. DVT prophylaxis: SCDs Discussed with: patient, nursing Anticipated discharge: 3-[address]: SNF A total of 65 minutes was spent on the care of this complex patient more than 50% of the time was spent in counseling and care coordination. Objective - Vital Signs Vital signs: Vital Signs Temp 98.1 F 08/13/20 04:46 Pulse 109 H 08/13/20 08:00 Resp 18 08/13/20 08:00 BP 86/58 08/13/20 04:46 Pulse Ox 93 L 08/13/20 04:46 Intake & Output 08/12/20 08/13/20 08/13/20 18:59 06:59 18:59 Intake Total 350 1175 10.495 Output Total 300 Balance 50 1175 10.495 Intake: Intake, IV Titration 825 10.495 Amount Dextrose 5%-0.45% NaCl 1, 825 000 ml @ 75 mls/hr IV . [id number] [facility] Rx#:[id number] Norepinephrine 4 mg In 10.495 Sodium Chloride 0.9% 250 ml @ 0.04 MCG/KG/MIN 8. 626 mls/hr IV .Q24H [facility] Rx#:[id number] Oral 350 350 Output: Urine 300 Other: Voiding Method Indwelling Catheter Indwelling Catheter Indwelling Catheter # Voids 0 0 # Bowel Movements 0 0 - Labs CBC & Chem 7: 08/13/20 04:37 08/13/20 08:19 Labs: Abnormal Lab Results - Last 24 Hours (Table) 08/12/20 08/12/20 08/13/20 Range/Units 17:21 20:19 04:37 WBC (3.8-10.6) k/uL Hgb (11.4-16.0) gm/dL Plt Count (150-450) k/uL Retic Count (0.5-2.0) % PT (9.0-12.0) sec INR (<1.2) APTT (22.0-30.0) sec ABG pH (7.35-7.45) ABG pCO2 (35-45) mmHg ABG pO2 (83-108) mmHg ABG HCO3 (21-25) mmol/L ABG Total CO2 (19-24) mmol/L ABG O2 Saturation (94-97) % Sodium 132 L (135-145) mmol/L Carbon Dioxide 19.3 L (21.6-31.8) mmol/L Anion Gap 14.70 H (4.00-12.00) mmol/L Creatinine 0.4 L (0.6-1.5) mg/dL BUN/Creatinine Ratio 37.50 H (12.00-20.00) Ratio POC Glucose (mg/dL) 110 H 114 H (75-99) mg/dL Plasma Lactic Acid Duy (0.7-2.0) mmol/L Calcium 7.7 L (8.7-10.3) mg/dL Phosphorus 2.3 L (2.4-5.1) mg/dL Alkaline Phosphatase 40 L (41-126) U/L Lactate Dehydrogenase (313-618) U/L Total Protein 3.5 L (6.2-8.2) g/dL Albumin 2.20 L (3.80-4.90) g/dL Globulin 1.3 L (1.6-3.3) g/dL 08/13/20 08/13/20 08/13/20 Range/Units 04:37 08:01 08:19 WBC 1.0 L* (3.8-10.6) k/uL Hgb 11.1 L (11.4-16.0) gm/dL Plt Count 70 L (150-450) k/uL Retic Count 0.2 L (0.5-2.0) % PT (9.0-12.0) sec INR (<1.2) APTT (22.0-30.0) sec ABG pH (7.35-7.45) ABG pCO2 (35-45) mmHg ABG pO2 (83-108) mmHg ABG HCO3 (21-25) mmol/L ABG Total CO2 (19-24) mmol/L ABG O2 Saturation (94-97) % Sodium (135-145) mmol/L Carbon Dioxide (21.6-31.8) mmol/L Anion Gap (4.00-12.00) mmol/L Creatinine (0.6-1.5) mg/dL BUN/Creatinine Ratio (12.00-20.00) Ratio POC Glucose (mg/dL) 104 H (75-99) mg/dL Plasma Lactic Acid Duy (0.7-2.0) mmol/L Calcium (8.7-10.3) mg/dL Phosphorus (2.4-5.1) mg/dL Alkaline Phosphatase (41-126) U/L Lactate Dehydrogenase (313-618) U/L Total Protein (6.2-8.2) g/dL Albumin (3.80-4.90) g/dL Globulin (1.6-3.3) g/dL 08/13/20 08/13/20 08/13/20 Range/Units 08:19 11:05 11:06 WBC (3.8-10.6) k/uL Hgb (11.4-16.0) gm/dL Plt Count (150-450) k/uL Retic Count (0.5-2.0) % PT (9.0-12.0) sec INR (<1.2) APTT (22.0-30.0) sec ABG pH (7.35-7.45) ABG pCO2 (35-45) mmHg ABG pO2 (83-108) mmHg ABG HCO3 (21-25) mmol/L ABG Total CO2 (19-24) mmol/L ABG O2 Saturation (94-97) % Sodium 129 L (135-145) mmol/L Carbon Dioxide 17 L (21.6-31.8) mmol/L Anion Gap (4.00-12.00) mmol/L Creatinine (0.6-1.5) mg/dL BUN/Creatinine Ratio (12.00-20.00) Ratio POC Glucose (mg/dL) 68 L 67 L (75-99) mg/dL Plasma Lactic Acid Duy (0.7-2.0) mmol/L Calcium 7.3 L (8.7-10.3) mg/dL Phosphorus (2.4-5.1) mg/dL Alkaline Phosphatase (41-126) U/L Lactate Dehydrogenase (313-618) U/L Total Protein 3.7 L (6.2-8.2) g/dL Albumin 1.8 L (3.80-4.90) g/dL Globulin (1.6-3.3) g/dL 08/13/20 08/13/20 08/13/20 Range/Units 11:24 12:24 12:24 WBC (3.8-10.6) k/uL Hgb (11.4-16.0) gm/dL Plt Count (150-450) k/uL Retic Count (0.5-2.0) % PT 14.4 H (9.0-12.0) sec INR 1.5 H (<1.2) APTT 56.7 H (22.0-30.0) sec ABG pH (7.35-7.45) ABG pCO2 (35-45) mmHg ABG pO2 (83-108) mmHg ABG HCO3 (21-25) mmol/L ABG Total CO2 (19-24) mmol/L ABG O2 Saturation (94-97) % Sodium (135-145) mmol/L Carbon Dioxide (21.6-31.8) mmol/L Anion Gap (4.00-12.00) mmol/L Creatinine (0.6-1.5) mg/dL BUN/Creatinine Ratio (12.00-20.00) Ratio POC Glucose (mg/dL) 184 H (75-99) mg/dL Plasma Lactic Acid Duy (0.7-2.0) mmol/L Calcium (8.7-10.3) mg/dL Phosphorus (2.4-5.1) mg/dL Alkaline Phosphatase (41-126) U/L Lactate Dehydrogenase 243 L (313-618) U/L Total Protein (6.2-8.2) g/dL Albumin (3.80-4.90) g/dL Globulin (1.6-3.3) g/dL 08/13/20 08/13/20 Range/Units 12:24 13:54 WBC (3.8-10.6) k/uL Hgb (11.4-16.0) gm/dL Plt Count (150-450) k/uL Retic Count (0.5-2.0) % PT (9.0-12.0) sec INR (<1.2) APTT (22.0-30.0) sec ABG pH 7.31 L (7.35-7.45) ABG pCO2 32 L (35-45) mmHg ABG pO2 68 L (83-108) mmHg ABG HCO3 16 L (21-25) mmol/L ABG Total CO2 17 L (19-24) mmol/L ABG O2 Saturation 91.5 L (94-97) % Sodium (135-145) mmol/L Carbon Dioxide (21.6-31.8) mmol/L Anion Gap (4.00-12.00) mmol/L Creatinine (0.6-1.5) mg/dL BUN/Creatinine Ratio (12.00-20.00) Ratio POC Glucose (mg/dL) (75-99) mg/dL Plasma Lactic Acid Duy 6.7 H* (0.7-2.0) mmol/L Calcium (8.7-10.3) mg/dL Phosphorus (2.4-5.1) mg/dL Alkaline Phosphatase (41-126) U/L Lactate Dehydrogenase (313-618) U/L Total Protein (6.2-8.2) g/dL Albumin (3.80-4.90) g/dL Globulin (1.6-3.3) g/dL Microbiology - Last 24 Hours (Table) 08/09/20 01:00 Blood Culture - Preliminary Blood No Growth after 96 hours
[2020-08-13 17:15] LABS: Glucose,Whole Blood 93 mg/dL (75-99)
[2020-08-13] MEDS: PIPERACILLIN-TAZOBACTAM 3.375 GM in SODIUM CHLORIDE 0.9% 100 ML IVPB SCH (18:15)
[2020-08-13 19:28] LABS: Protein, Total 3.1 g/dL (6.2-8.2)
[2020-08-13 20:19] LABS: Glucose,Whole Blood 102 mg/dL (75-99)
[2020-08-13 20:44] LABS: % Iron Saturation 46.76 (12.00-45.00); Ferritin 812.9 ng/mL (10.0-291.0)
[2020-08-13 20:59] LABS: Rheumatoid Factor, Qnt 11 IU/mL (0-15)
[2020-08-13] MEDS ORDERED: ACETAMINOPHEN TAB 325 MG TAB PO STA (21:05)
[2020-08-13] MEDS ORDERED: SODIUM CHLORIDE 0.9% 500 ML 500 ML IV ONE (21:06)
[2020-08-13 21:09] LABS: Appearance,Urine Cloudy (Clear); Bacteria,Urine Moderate /hpf; Bilirubin,Urine Negative (Negative); Blood,Urine Trace (Negative); Color,Urine Dark Brown; Glucose,Urine (UA) Negative (Negative); Ketones,Urine Trace (Negative); Leukocyte Esterase,Urine Large (Negative); Mucus,Urine Occasional /hpf; Nitrite,Urine Negative (Negative); PH, Urine 5.5 (5.0-8.0); Protein,Urine Trace (Negative); RBC,Urine 15 /hpf (0-5); Squamous Epithelial Cell,Urine <1 /hpf (0-4); WBC,Urine 27 /hpf (0-5)
[2020-08-13 21:11] LABS: Specific Gravity,Urine 1.049 (1.001-1.035)
[2020-08-13] MEDS: VALPROATE SODIUM 250 MG in SODIUM CHLORIDE 0.9% 100 ML IVPB SCH (21:31)
[2020-08-13] MEDS: MIRTAZAPINE 15 MG TAB PO SCH (22:04)
[2020-08-13] MEDS: QUEtiapine 25 MG TAB PO SCH (22:04)
--- NOTE | 2020-08-13 23:21 | CONS ---
CONSULTATION DATE OF DICTATION: 08/13/2020 REASON FOR CONSULTATION: Decreased oral intake, possible PEG tube placement. HISTORY OF PRESENT ILLNESS: The patient is a 70-year-old pleasant white female with history of seizure disorder, status post frontal lobe dissection many years ago, who was admitted to the hospital because of poor oral intake, feeling weak and tired, dysphagia and progressive weight loss for the last one month duration. The patient this morning while on the floor had an episode of seizure and had some altered mental status and hence she was transferred to the intensive care unit. On further questioning, the patient is very poor to answer questions and her is at the bedside. He states that she has not been feeling well for the last one month duration. She has history of anxiety and depression and has been on medication, but her does not believe that her depression is the cause of ongoing symptoms. She has poor appetite. She complains of occasional dysphagia. She denies any abdominal pain. No nausea, no vomiting. She did have a modified barium swallow done 3 weeks ago that did not show any evidence of aspiration. Because of her poor nutrition status, we are requested for PEG tube placement. She did have a CT of the abdomen and pelvis done yesterday that showed some dilated small bowel loops suspicious for ileus versus bowel obstruction. However, the patient denies any abdominal pain. PAST MEDICAL HISTORY: Significant for seizure disorder, COPD, diabetes mellitus, hypertension. PAST SURGICAL HISTORY: , cholecystectomy, right shoulder surgery, carpal tunnel surgery. MEDICATIONS: Medications at home include biotin, Depakote, Protonix, Mysoline, Seroquel, Spiriva, Trintellix, clonazepam, Ramipril and trazodone. ALLERGIES: None. SOCIAL HISTORY: No history of smoking. No alcohol use. FAMILY HISTORY: Unremarkable. REVIEW OF SYSTEMS: The patient would not answer much questions. PHYSICAL EXAMINATION: She appears comfortable. Vital signs show a blood pressure of 133/82, pulse rate 109, temperature 98. HEENT EXAMINATION: Unremarkable. Conjunctivae pink. Sclerae anicteric. Oral cavity, no lesions. NECK: No JVD or lymph node enlargement. CHEST: Clear to auscultation. HEART: Regular rate and rhythm. ABDOMEN: Soft, it was slightly distended, but was nontender. Bowel sounds are positive. EXTREMITIES: No pedal edema. NEUROLOGIC: She is awake to verbal stimuli but not answering any questions appropriately. LABS: Labs done at the time of admission to the hospital: WBC 5.5, hemoglobin 12.7 platelets normal. Today WBC 1, hemoglobin 11.1, platelets are 70,000. PT 14.4, INR 1.5. Sodium 129, potassium 3.9, chloride 101 and CO2 of 11. 0.59. AST, ALT, T bilirubin and alkaline phosphatase are within normal limits. Plasma lactic acid was 7.3 today. At the time of admission to the hospital, it was 2. IMPRESSION: 1. History of seizure disorder. The patient had a seizure episode this morning and transferred to the intensive care unit being monitored closely. 2. Altered mental status, gradually improving. 3. Hypertension presently receiving aggressive IV hydration. 4. Small bowel ileus. Recent CT scan done yesterday showed small bowel dilated air fluid levels. 5. Poor oral intake/malnutrition. Recent modified barium swallow did not show any evidence of aspiration. 6. History of anxiety, depression. RECOMMENDATIONS: I had a lengthy discussion with the patient's who is at the bedside regarding nutrition status. At this time, the patient has altered sensorium and is not able to understand about a PEG tube and its implications; hence, I recommend that we continue with symptomatic and supportive care and re-evaluate the patient in the next 1 or 2 days and once her mental status improves, I will further discuss EGD with PEG tube placement with the patient as well as her who is agreeable with this plan. In the meantime we will monitor abdominal x-rays to make sure that the ileus is resolving prior to considering any endoscopic intervention. We will follow with you closely. Thank you for this consultation. MMODL / IJN: [id number] /
[2020-08-14] MEDS: DEXTROSE 5%-0.45% NACL 1,000 ML IV SCH (00:09)
[2020-08-14] MEDS: PIPERACILLIN-TAZOBACTAM 3.375 GM in SODIUM CHLORIDE 0.9% 100 ML IVPB SCH ×3 (00:13→19:06)
[2020-08-14] MEDS ORDERED: SODIUM CHLORIDE 0.9% 500 ML 500 ML IV ONE (00:15)
[2020-08-14] MEDS: NOREPINEPHRINE 4 MG in SODIUM CHLORIDE 0.9% 250 ML IV SCH ×3 (03:21→20:51)
--- NOTE | 2020-08-14 04:17 | PCN ---
PROCEDURE NOTE OPERATIVE REPORT: Placement of the right IJ triple-lumen catheter. PREOPERATIVE DIAGNOSIS: Hypotension, possible sepsis. POSTOPERATIVE DIAGNOSIS: Hypotension, possible sepsis. ANESTHESIA USED: 2 mL of 1% lidocaine. PROCEDURE: The patient was placed in a Trendelenburg position, the area of the right cervical region was prepared in a sterile fashion and drapes were applied. The area behind the posterior belly of the sternocleidomastoid was locally anesthetized. Then using the posterior approach, the right internal jugular vein was cannulated easily, a guidewire was placed, and an area on the guidewire was dilated. Then a triple-lumen catheter was inserted, and the guidewire was removed. Good blood flow was noted in the 3 different ports of the triple-lumen catheter, and no evidence of any immediate complication. Line was secured using 3.0 silk sutures. Chest x-ray showed adequate placement and no complications. MMODL / HARDIKN: [id number] /
--- NOTE | 2020-08-14 04:18 | PCN ---
PROCEDURE NOTE OPERATIVE REPORT: Placement of the left radial arterial line. PREOPERATIVE DIAGNOSIS: Hypotension. POSTOPERATIVE DIAGNOSIS: Hypotension. ANESTHESIA USED: None deployed. PROCEDURE: The patient was placed in a supine position, the left wrist was prepared in a sterile fashion. Drapes were applied. Left radial artery was palpated, cannulated easily and a guidewire was placed. A Cook catheter was inserted over the guidewire, and a guidewire was removed. There was adequate blood flow, adequate waveform, and no evidence of immediate complication. Line was secured using 3.0 silk sutures. MMODL / IJN: [id number] /
[2020-08-14 04:46] LABS: HCT 36.5 % (34.0-46.0); HGB 11.1 gm/dL (11.4-16.0); Hypochromasia Slight; MCH 28.3 pg (25.0-35.0); MCHC 30.5 g/dL (31.0-37.0); MCV 92.7 fL (80.0-100.0); Mean Platelet Volume 7.8; RBC 3.94 m/uL (3.80-5.40); RDW 15.6 % (11.5-15.5)
[2020-08-14 04:49] LABS: African American GFR (CKD) >90 (>60 ml/min/1.73 sqM); Anion Gap 6 mmol/L; Blood Urea Nitrogen 15 mg/dL (7-17); Carbon Dioxide 18 mmol/L (22-30); Chloride 110 mmol/L (98-107); Glucose 114 mg/dL (74-99); Non-African American GFR(CKD) >90 (>60 ml/min/1.73 sqM); Potassium 3.2 mmol/L (3.5-5.1); Sodium 134 mmol/L (137-145)
[2020-08-14 04:56] LABS: ABG Base Excess -6.6 mmol/L; ABG HCO3 20 mmol/L (21-25); ABG Oxygen Saturation 86.7 % (94-97); ABG PCO2 43 mmHg (35-45); ABG PH 7.28 (7.35-7.45); ABG TCO2 21 mmol/L (19-24)
[2020-08-14] MEDS ORDERED: propofoL 100 ML IV ONE (05:00)
[2020-08-14 05:02] LABS: WBC 0.4 k/uL (3.8-10.6)
[2020-08-14 05:09] LABS: Platelet Count 18 k/uL (150-450)
[2020-08-14 05:20] LABS: Calcium 6.4 mg/dL (8.4-10.2)
[2020-08-14 05:38] LABS: ABG PO2 56 mmHg (83-108)
[2020-08-14 05:54] LABS: Glucose,Whole Blood 96 mg/dL (75-99)
--- NOTE | 2020-08-14 06:00 | XR ---
EXAM: XR Chest, 1 View CLINICAL HISTORY: ITS.REASON XR Reason: intubation TECHNIQUE: Frontal view of the chest. COMPARISON: 08/13/2020 at 3:09pm FINDINGS: Lines and tubes: Right IJ central venous catheter with tip terminating at the cavoatrial junction. Enteric tube terminates below [id number] in the left upper quadrant with side port overlying the gastroesophageal junction. Endotracheal to terminates approximately 3.5 cm above the level the heraclio. Bibasilar hazy opacities which may represent a combination of atelectasis/consolidation and effusions. No pneumothorax. IMPRESSION: 1. Endotracheal to terminates approximately 3.5 cm above the level the heraclio. 2. Enteric tube terminates below [id number] in the left upper quadrant with side port overlying the gastroesophageal junction. Consider advancing approximately 5 cm. 3. Bibasilar hazy opacities which may represent a combination of atelectasis/consolidation and small pleural effusions.
[2020-08-14 06:04] LABS: ABG Base Excess -6.7 mmol/L; ABG HCO3 20 mmol/L (21-25); ABG Oxygen Saturation 99.7 % (94-97); ABG PCO2 44 mmHg (35-45); ABG PH 7.27 (7.35-7.45); ABG PO2 287 mmHg (83-108); ABG TCO2 22 mmol/L (19-24)
[2020-08-14] MEDS: IPRATROPIUM 0.5 MG/2.5 ML NEBU INHALATION SCH ×4 (07:12→20:22)
[2020-08-14] MEDS: INSULIN ASPART (NovoLOG) 100 UNIT/ML VIAL SQ SCH ×3 (07:14→17:58)
--- NOTE | 2020-08-14 07:29 | CDI ---
Documentation Clarification Form Date: 08/14/2020 07:03:18 AM From: Essence Gilmore RN, CCDS Admit Date: 08/09/2020 01:45:00 AM Patient Name: Gracie Marshall Visit Number: [id number] ATTENTION: The Clinical Documentation Specialists (CDI) and [facility] Coding Staff appreciate your assistance in clarifying documentation. Please respond to the clarification below the line at the bottom and electronically sign. The CDI & [facility] Coding staff will review the response and follow-up if needed. Please note: Queries are made part of the Legal Health Record. If you have any questions, please contact the author of this message via ITS. Dr. Melony Dodd Hypotension is documented since admission in a pt receiving multiple fluid boluses and on IV Vasopressors. Please provide further clinical significance. Patient history/risk factors: Anorexia, Severe PCM, Failure to Thrive, Electrolyte derangement, Depression with suicidal ideations currently resolved, DM2, Lactic acidosis suspect secondary to dehydration and starvation, resolved, pancytopenia Clinical Indicators: 08/09-08/13 Attending progress note: "On EMS arrival the patient was significantly hypotensive." 08/13 Neurology Consult: "Episode of unresponsiveness, possible due to hypotension. Her current spell appears to be likely related to episode of hypotension." 08/13 Pulmonary Progress Note: "shock with hypotension secondary to suspected dehydration and lactic acidosis " 08/14 Oncology Consult: "On admission found to be hypotensive and disoriented." Documented infectious process: 08/13 Pulmonary Progress note: "urinary tract infection secondary to E. coli and strep agalactiae." 08/13 1104 Vitals:Temp 98, hr 110, RR 8., b/p 72/36, Spo2 97% on 12L high flow NC Treatment 08/13-Current: Levophed gtt titrate for B/P 08/09 2.5L 0.9% NS IVF Bolus 08/13 6 L 0.9% NS IVF bolus In your professional opinion, can you please further specify the clinical significance of the patients hypotension? Hypovolemic Shock Cause Septic Shock Suspected or known causative organism Any associated organ failure Hypotension due to specified cause Other, please specify Unable to determine (Last Revision: July 2017) Hypovolemic shock MTDD
[2020-08-14] MEDS ORDERED: NOREPINEPHRIN 4 MG-0.9% NS PMX 4 MG/250 ML ML IV ONE (08:13)
[2020-08-14 08:54] LABS: Free Kappa Lt Chain Qnt, Serum 1.59 mg/dL (0.33-1.94)
[2020-08-14] MEDS ORDERED: ENOXAPARIN 40 MG/0.4 ML SYRINGE SQ SCH (10:15)
--- NOTE | 2020-08-14 11:20 | P.PN ---
Subjective Progress Note Date: 08/14/20 Principal diagnosis: Decreased oral intake, possible PEG tube placement The patient was seen and examined the ICU. Early this morning the patient became very hypotensive with respiratory depression, the patient was started on pressors, subsequently intubated. The patient is readily intubated and sedated. We have been consulted regarding possible PEG tube placement, assess patient previously had been refusing to eat or drink. She's had some dysphagia and progressive weight loss. Last month's duration. Objective - Vital Signs Vital signs: Vital Signs Temp 98.2 F 08/14/20 04:00 Pulse 116 H 08/14/20 11:04 Resp 24 08/14/20 07:45 BP 97/51 08/14/20 07:45 Pulse Ox 93 L 08/14/20 07:45 Intake & Output 08/13/20 08/14/20 08/14/20 18:59 06:59 18:59 Intake Total 6866.301 2092.329 75 Output Total 310 775 25 Balance 6556.301 1317.329 50 Weight 68.5 kg 69.7 kg 69.7 kg Intake: IV 600 900 75 Dextrose 5%-0.45% NaCl 1, 600 900 75 000 ml @ 75 mls/hr IV . [id number] [facility] Rx#:[id number] Intake, IV Titration 6266.301 992.329 Amount Norepinephrine 4 mg In 166.301 480.461 Sodium Chloride 0.9% 250 ml @ 0.04 MCG/KG/MIN 8. 626 mls/hr IV .Q24H [facility] Rx#:[id number] Piperacillin-Tazobactam 3 100 .375 gm In Sodium Chloride 0.9% 100 ml @ 25 mls/hr IVPB Q8HR [facility] Rx# :[id number] Sodium Chloride 0.9% 1, 6000 000 ml @ 999 mls/hr IV . Q1H1M ONE Rx#:[id number] Sodium Chloride 0.9% 500 500 ml 500 ml @ 999 mls/hr IV .Q31M ONE Rx#:[id number] propofoL 1,000 mg In 11.868 Empty Bag 1 bag @ Titrate IV .Q0M [facility] Rx#: [id number] Oral 200 Output: Urine 310 775 25 Other: Voiding Method Indwelling Catheter Indwelling Catheter # Bowel Movements 1 ABP, PAP, CO, CI - Last Documented Arterial Blood Pressure 94/47 - Exam General appearance: The patient is dated and intubated. HET: Head is normocephalic and atraumatic. Conjunctiva pink. Sclera anicteric. Neck: Supple without lymphadenopathy. Abdomen: Soft, nontender, mildly distended with bowel sounds. No guarding or rigidity. Extremities: Normal skin color and turgor. No pedal edema Neurological: Sedated and intubated. - Labs CBC & Chem 7: 08/14/20 04:07 08/14/20 04:07 Labs: Abnormal Lab Results - Last 24 Hours (Table) 08/13/20 08/13/20 08/13/20 Range/Units 08:19 10:14 11:24 WBC (3.8-10.6) k/uL Hgb (11.4-16.0) gm/dL MCHC (31.0-37.0) g/dL RDW (11.5-15.5) % Plt Count (150-450) k/uL PT (9.0-12.0) sec INR (<1.2) APTT (22.0-30.0) sec ABG pH (7.35-7.45) ABG pCO2 (35-45) mmHg ABG pO2 (83-108) mmHg ABG HCO3 (21-25) mmol/L ABG Total CO2 (19-24) mmol/L ABG O2 Saturation (94-97) % ABG Lactic Acid (0.5-1.6) mmol/L Sodium (137-145) mmol/L Potassium (3.5-5.1) mmol/L Chloride (98-107) mmol/L Carbon Dioxide (22-30) mmol/L Creatinine (0.52-1.04) mg/dL Glucose (74-99) mg/dL POC Glucose (mg/dL) 184 H (75-99) mg/dL Plasma Lactic Acid Duy (0.7-2.0) mmol/L Calcium (8.4-10.2) mg/dL Ionized Calcium Vinny (4.5-5.3) mg/dL TIBC 139 L (228-460) ug/dL % Saturation 46.76 H (12.00-45.00) Ferritin 812.9 H (10.0-291.0) ng/mL Lactate Dehydrogenase (313-618) U/L Total Protein (PEP) (6.2-8.2) g/dL Urine Appearance Cloudy H (Clear) Ur Specific [place] 1.049 H (1.001-1.035) Urine Protein Trace H (Negative) Urine Ketones Trace H (Negative) Urine Blood Trace H (Negative) Ur Leukocyte Esterase Large H (Negative) Urine RBC 15 H (0-5) /hpf Urine WBC 27 H (0-5) /hpf Urine Bacteria Moderate H (None) /hpf Urine Mucus Occasional H (None) /hpf 08/13/20 08/13/20 08/13/20 Range/Units 12:24 12:24 12:24 WBC (3.8-10.6) k/uL Hgb (11.4-16.0) gm/dL MCHC (31.0-37.0) g/dL RDW (11.5-15.5) % Plt Count (150-450) k/uL PT 14.4 H (9.0-12.0) sec INR 1.5 H (<1.2) APTT 56.7 H (22.0-30.0) sec ABG pH (7.35-7.45) ABG pCO2 (35-45) mmHg ABG pO2 (83-108) mmHg ABG HCO3 (21-25) mmol/L ABG Total CO2 (19-24) mmol/L ABG O2 Saturation (94-97) % ABG Lactic Acid (0.5-1.6) mmol/L Sodium (137-145) mmol/L Potassium (3.5-5.1) mmol/L Chloride (98-107) mmol/L Carbon Dioxide (22-30) mmol/L Creatinine (0.52-1.04) mg/dL Glucose (74-99) mg/dL POC Glucose (mg/dL) (75-99) mg/dL Plasma Lactic Acid Duy 6.7 H* (0.7-2.0) mmol/L Calcium (8.4-10.2) mg/dL Ionized Calcium Vinny (4.5-5.3) mg/dL TIBC (228-460) ug/dL % Saturation (12.00-45.00) Ferritin (10.0-291.0) ng/mL Lactate Dehydrogenase 243 L (313-618) U/L Total Protein (PEP) (6.2-8.2) g/dL Urine Appearance (Clear) Ur Specific [place] (1.001-1.035) Urine Protein (Negative) Urine Ketones (Negative) Urine Blood (Negative) Ur Leukocyte Esterase (Negative) Urine RBC (0-5) /hpf Urine WBC (0-5) /hpf Urine Bacteria (None) /hpf Urine Mucus (None) /hpf 08/13/20 08/13/20 08/13/20 Range/Units 13:07 13:54 15:25 WBC (3.8-10.6) k/uL Hgb (11.4-16.0) gm/dL MCHC (31.0-37.0) g/dL RDW (11.5-15.5) % Plt Count (150-450) k/uL PT (9.0-12.0) sec INR (<1.2) APTT (22.0-30.0) sec ABG pH 7.31 L (7.35-7.45) ABG pCO2 32 L (35-45) mmHg ABG pO2 68 L (83-108) mmHg ABG HCO3 16 L (21-25) mmol/L ABG Total CO2 17 L (19-24) mmol/L ABG O2 Saturation 91.5 L (94-97) % ABG Lactic Acid (0.5-1.6) mmol/L Sodium (137-145) mmol/L Potassium (3.5-5.1) mmol/L Chloride (98-107) mmol/L Carbon Dioxide (22-30) mmol/L Creatinine (0.52-1.04) mg/dL Glucose (74-99) mg/dL POC Glucose (mg/dL) (75-99) mg/dL Plasma Lactic Acid Duy 7.3 H* (0.7-2.0) mmol/L Calcium (8.4-10.2) mg/dL Ionized Calcium Vinny (4.5-5.3) mg/dL TIBC (228-460) ug/dL % Saturation (12.00-45.00) Ferritin (10.0-291.0) ng/mL Lactate Dehydrogenase (313-618) U/L Total Protein (PEP) 3.1 L (6.2-8.2) g/dL Urine Appearance (Clear) Ur Specific [place] (1.001-1.035) Urine Protein (Negative) Urine Ketones (Negative) Urine Blood (Negative) Ur Leukocyte Esterase (Negative) Urine RBC (0-5) /hpf Urine WBC (0-5) /hpf Urine Bacteria (None) /hpf Urine Mucus (None) /hpf 08/13/20 08/13/20 08/13/20 Range/Units 19:53 20:18 22:31 WBC (3.8-10.6) k/uL Hgb (11.4-16.0) gm/dL MCHC (31.0-37.0) g/dL RDW (11.5-15.5) % Plt Count (150-450) k/uL PT (9.0-12.0) sec INR (<1.2) APTT (22.0-30.0) sec ABG pH (7.35-7.45) ABG pCO2 (35-45) mmHg ABG pO2 (83-108) mmHg ABG HCO3 (21-25) mmol/L ABG Total CO2 (19-24) mmol/L ABG O2 Saturation (94-97) % ABG Lactic Acid 6.3 H* (0.5-1.6) mmol/L Sodium (137-145) mmol/L Potassium (3.5-5.1) mmol/L Chloride (98-107) mmol/L Carbon Dioxide (22-30) mmol/L Creatinine (0.52-1.04) mg/dL Glucose (74-99) mg/dL POC Glucose (mg/dL) 102 H (75-99) mg/dL Plasma Lactic Acid Duy 5.3 H* (0.7-2.0) mmol/L Calcium (8.4-10.2) mg/dL Ionized Calcium Vinny (4.5-5.3) mg/dL TIBC (228-460) ug/dL % Saturation (12.00-45.00) Ferritin (10.0-291.0) ng/mL Lactate Dehydrogenase (313-618) U/L Total Protein (PEP) (6.2-8.2) g/dL Urine Appearance (Clear) Ur Specific [place] (1.001-1.035) Urine Protein (Negative) Urine Ketones (Negative) Urine Blood (Negative) Ur Leukocyte Esterase (Negative) Urine RBC (0-5) /hpf Urine WBC (0-5) /hpf Urine Bacteria (None) /hpf Urine Mucus (None) /hpf 08/14/20 08/14/20 08/14/20 Range/Units 04:07 04:07 04:54 WBC 0.4 L* (3.8-10.6) k/uL Hgb 11.1 L (11.4-16.0) gm/dL MCHC 30.5 L (31.0-37.0) g/dL RDW 15.6 H (11.5-15.5) % Plt Count 18 L* D (150-450) k/uL PT (9.0-12.0) sec INR (<1.2) APTT (22.0-30.0) sec ABG pH 7.28 L (7.35-7.45) ABG pCO2 (35-45) mmHg ABG pO2 56 L* (83-108) mmHg ABG HCO3 20 L (21-25) mmol/L ABG Total CO2 (19-24) mmol/L ABG O2 Saturation 86.7 L (94-97) % ABG Lactic Acid (0.5-1.6) mmol/L Sodium 134 L (137-145) mmol/L Potassium 3.2 L (3.5-5.1) mmol/L Chloride 110 H (98-107) mmol/L Carbon Dioxide 18 L (22-30) mmol/L Creatinine 0.36 L (0.52-1.04) mg/dL Glucose 114 H (74-99) mg/dL POC Glucose (mg/dL) (75-99) mg/dL Plasma Lactic Acid Duy (0.7-2.0) mmol/L Calcium 6.4 L* (8.4-10.2) mg/dL Ionized Calcium Vinny (4.5-5.3) mg/dL TIBC (228-460) ug/dL % Saturation (12.00-45.00) Ferritin (10.0-291.0) ng/mL Lactate Dehydrogenase (313-618) U/L Total Protein (PEP) (6.2-8.2) g/dL Urine Appearance (Clear) Ur Specific [place] (1.001-1.035) Urine Protein (Negative) Urine Ketones (Negative) Urine Blood (Negative) Ur Leukocyte Esterase (Negative) Urine RBC (0-5) /hpf Urine WBC (0-5) /hpf Urine Bacteria (None) /hpf Urine Mucus (None) /hpf 08/14/20 08/14/20 08/14/20 Range/Units 05:25 06:00 08:30 WBC (3.8-10.6) k/uL Hgb (11.4-16.0) gm/dL MCHC (31.0-37.0) g/dL RDW (11.5-15.5) % Plt Count (150-450) k/uL PT (9.0-12.0) sec INR (<1.2) APTT (22.0-30.0) sec ABG pH 7.27 L (7.35-7.45) ABG pCO2 (35-45) mmHg ABG pO2 287 H (83-108) mmHg ABG HCO3 20 L (21-25) mmol/L ABG Total CO2 (19-24) mmol/L ABG O2 Saturation 99.7 H (94-97) % ABG Lactic Acid (0.5-1.6) mmol/L Sodium (137-145) mmol/L Potassium (3.5-5.1) mmol/L Chloride (98-107) mmol/L Carbon Dioxide (22-30) mmol/L Creatinine (0.52-1.04) mg/dL Glucose (74-99) mg/dL POC Glucose (mg/dL) (75-99) mg/dL Plasma Lactic Acid Duy 3.0 H* (0.7-2.0) mmol/L Calcium (8.4-10.2) mg/dL Ionized Calcium Vinny 4.3 L (4.5-5.3) mg/dL TIBC (228-460) ug/dL % Saturation (12.00-45.00) Ferritin (10.0-291.0) ng/mL Lactate Dehydrogenase (313-618) U/L Total Protein (PEP) (6.2-8.2) g/dL Urine Appearance (Clear) Ur Specific [place] (1.001-1.035) Urine Protein (Negative) Urine Ketones (Negative) Urine Blood (Negative) Ur Leukocyte Esterase (Negative) Urine RBC (0-5) /hpf Urine WBC (0-5) /hpf Urine Bacteria (None) /hpf Urine Mucus (None) /hpf Microbiology - Last 24 Hours (Table) 08/14/20 06:22 Sputum Culture - Preliminary Sputum 08/09/20 01:00 Blood Culture - Preliminary Blood No Growth after 120 hours Assessment and Plan Assessment: 1. History of seizure disorder. The patient had a seizure episode yesterday and was transferred to the intensive care unit being monitored closely. The patient subsequently had a decline in status and was intubated early this morning. 2. Altered mental status 3. Hypotensive, requiring pressors 4. Small bowel ileus. Recent computed tomography scan done yesterday showed small bowel dilated air-fluid levels 5. Poor oral intake/malnutrition. Recent modified barium swallow did not show any evidence of aspiration 6. History of anxiety, depression Plan: 1. Supportive care 2. Follow recommendations per intensivists 3. When patient becomes stabilized further discussion and consideration for EGD and PEG tube placement discussed with and patient 4. Abdominal x-rays ordered to to monitor if ileus is resolving yesterday prior to consideration of any endoscopic intervention. We will follow with you closely. The impression and plan of care has been dictated as directed. Dr. Julio Cesar Giron I performed a history and examination of this patient, discussed the same with the dictator. I agree with the dictator's note ,documented as a scribe. Any additional findings or plans will be noted.
[2020-08-14] MEDS: SODIUM CHLORIDE 0.9% 150 ML with VASOPRESSIN 60 UNIT IV SCH ×2 (11:44)
[2020-08-14 11:53] LABS: Glucose,Whole Blood 138 mg/dL (75-99)
[2020-08-14] MEDS: HYDROCORTISONE SUCCINATE 100 MG/2 ML VIAL IV SCH ×2 (11:59→19:06)
[2020-08-14] MEDS: PRIMIDONE 250 MG TAB PO SCH (11:59)
[2020-08-14] MEDS: CHLORHEXIDINE GLUCONATE 15 ML CUP MUCOUS MEM SCH ×2 (11:59→21:53)
[2020-08-14] MEDS: VALPROATE SODIUM 250 MG in SODIUM CHLORIDE 0.9% 100 ML IVPB SCH ×2 (11:59→21:48)
[2020-08-14] MEDS: PANTOPRAZOLE 40 MG/10 ML VIAL IVP SCH ×2 (12:01→21:53)
[2020-08-14 12:21] LABS: Immunoglobulin M 22.8 mg/dL (40.0-280.0)
[2020-08-14 13:10] LABS: INR 1.1 (<1.2); Partial Thromboplastin Time 41.5 sec (22.0-30.0); Prothrombin Time 11.6 sec (9.0-12.0)
[2020-08-14 13:19] LABS: Albumin 1.56 g/dL (3.80-4.90)
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
--- NOTE | 2020-08-14 15:10 | XR ---
EXAMINATION TYPE: XR KUB portable DATE OF EXAM: 08/14/2020 COMPARISON: None HISTORY: Ileus TECHNIQUE: AP abdomen FINDINGS: Nasogastric tube is present with the tip in the left upper quadrant of the abdomen. No mass effect is evident. Psoas margins are normal. Small amount of nonspecific bowel gas within the right midabdomen. Organomegaly is not evident. IMPRESSION: 1. Nonspecific abdomen
--- NOTE | 2020-08-14 15:37 | P.PN ---
Subjective Progress Note Date: 08/14/20 Patient was seen for a follow-up. Patient's son was present. Patient apparently developed another episode of significant hypotension, possibly from sepsis, for which she was intubated. Patient had been given 8 L of fluid still appears dehydrated. Patient is on max dose of Levophed 0.6 g, septic. Patient is still intubated on a mechanical ventilator. Objective - Vital Signs Vital signs: Vital Signs Temp 98.2 F 08/14/20 04:00 Pulse 116 H 08/14/20 11:04 Resp 24 08/14/20 07:45 BP 97/51 08/14/20 07:45 Pulse Ox 93 L 08/14/20 07:45 Intake & Output 08/13/20 08/14/20 08/14/20 18:59 06:59 18:59 Intake Total 6866.301 2092.329 75 Output Total 310 775 25 Balance 6556.301 1317.329 50 Weight 68.5 kg 69.7 kg 69.7 kg Intake: IV 600 900 75 Dextrose 5%-0.45% NaCl 1, 600 900 75 000 ml @ 75 mls/hr IV . [id number] [facility] Rx#:[id number] Intake, IV Titration 6266.301 992.329 Amount Norepinephrine 4 mg In 166.301 480.461 Sodium Chloride 0.9% 250 ml @ 0.04 MCG/KG/MIN 8. 626 mls/hr IV .Q24H [facility] Rx#:[id number] Piperacillin-Tazobactam 3 100 .375 gm In Sodium Chloride 0.9% 100 ml @ 25 mls/hr IVPB Q8HR [facility] Rx# :[id number] Sodium Chloride 0.9% 1, 6000 000 ml @ 999 mls/hr IV . Q1H1M [facility] Rx#:[id number] Sodium Chloride 0.9% 500 500 ml 500 ml @ 999 mls/hr IV .Q31M [facility] Rx#:[id number] propofoL 1,000 mg In 11.868 Empty Bag 1 bag @ Titrate IV .Q0M [facility] Rx#: [id number] Oral 200 Output: Urine 310 775 25 Other: Voiding Method Indwelling Catheter Indwelling Catheter # Bowel Movements 1 ABP, PAP, CO, CI - Last Documented Arterial Blood Pressure 94/47 - Exam Patient is intubated, sedated on propofol 25 g, also on Levophed 0.8 g next dose. Patient is septic. Pupils are small, not clearly reactive. Tone is equal bilaterally. Other exam cannot be performed. - Labs CBC & Chem 7: 08/14/20 04:07 08/14/20 04:07 Labs: Abnormal Lab Results - Last 24 Hours (Table) 08/13/20 08/13/20 08/13/20 Range/Units 08:19 10:14 13:07 WBC (3.8-10.6) k/uL Hgb (11.4-16.0) gm/dL MCHC (31.0-37.0) g/dL RDW (11.5-15.5) % Plt Count (150-450) k/uL APTT (22.0-30.0) sec ABG pH (7.35-7.45) ABG pO2 (83-108) mmHg ABG HCO3 (21-25) mmol/L ABG O2 Saturation (94-97) % ABG Lactic Acid (0.5-1.6) mmol/L Sodium (137-145) mmol/L Potassium (3.5-5.1) mmol/L Chloride (98-107) mmol/L Carbon Dioxide (22-30) mmol/L Creatinine (0.52-1.04) mg/dL Glucose (74-99) mg/dL POC Glucose (mg/dL) (75-99) mg/dL Plasma Lactic Acid Duy (0.7-2.0) mmol/L Calcium (8.4-10.2) mg/dL Ionized Calcium Vinny (4.5-5.3) mg/dL TIBC 139 L (228-460) ug/dL % Saturation 46.76 H (12.00-45.00) Ferritin 812.9 H (10.0-291.0) ng/mL Total Protein (PEP) 3.1 L (6.2-8.2) g/dL Albumin (PEP) 1.56 L (3.80-4.90) g/dL Lljad-3-Apygncgoq 0.41 H (0.10-0.40) g/dL Lmjat-6-Metypatcu 0.48 L (0.60-1.00) g/dL Beta Globulins 0.35 L (0.60-1.30) g/dL Gamma Globulins 0.30 L (0.70-1.50) g/dL Urine Appearance Cloudy H (Clear) Ur Specific Muir 1.049 H (1.001-1.035) Urine Protein Trace H (Negative) Urine Ketones Trace H (Negative) Urine Blood Trace H (Negative) Ur Leukocyte Esterase Large H (Negative) Urine RBC 15 H (0-5) /hpf Urine WBC 27 H (0-5) /hpf Urine Bacteria Moderate H (None) /hpf Urine Mucus Occasional H (None) /hpf IgG (700.0-1600.0) mg/dL IgM (40.0-280.0) mg/dL 08/13/20 08/13/20 08/13/20 Range/Units 13:07 15:25 19:53 WBC (3.8-10.6) k/uL Hgb (11.4-16.0) gm/dL MCHC (31.0-37.0) g/dL RDW (11.5-15.5) % Plt Count (150-450) k/uL APTT (22.0-30.0) sec ABG pH (7.35-7.45) ABG pO2 (83-108) mmHg ABG HCO3 (21-25) mmol/L ABG O2 Saturation (94-97) % ABG Lactic Acid 6.3 H* (0.5-1.6) mmol/L Sodium (137-145) mmol/L Potassium (3.5-5.1) mmol/L Chloride (98-107) mmol/L Carbon Dioxide (22-30) mmol/L Creatinine (0.52-1.04) mg/dL Glucose (74-99) mg/dL POC Glucose (mg/dL) (75-99) mg/dL Plasma Lactic Acid Duy 7.3 H* (0.7-2.0) mmol/L Calcium (8.4-10.2) mg/dL Ionized Calcium Vinny (4.5-5.3) mg/dL TIBC (228-460) ug/dL % Saturation (12.00-45.00) Ferritin (10.0-291.0) ng/mL Total Protein (PEP) (6.2-8.2) g/dL Albumin (PEP) (3.80-4.90) g/dL Uegxt-5-Rkkkhhywi (0.10-0.40) g/dL Qtvzk-9-Lykzclmlm (0.60-1.00) g/dL Beta Globulins (0.60-1.30) g/dL Gamma Globulins (0.70-1.50) g/dL Urine Appearance (Clear) Ur Specific Muir (1.001-1.035) Urine Protein (Negative) Urine Ketones (Negative) Urine Blood (Negative) Ur Leukocyte Esterase (Negative) Urine RBC (0-5) /hpf Urine WBC (0-5) /hpf Urine Bacteria (None) /hpf Urine Mucus (None) /hpf IgG 340.0 L (700.0-1600.0) mg/dL IgM 22.8 L (40.0-280.0) mg/dL 08/13/20 08/13/20 08/14/20 Range/Units 20:18 22:31 04:07 WBC 0.4 L* (3.8-10.6) k/uL Hgb 11.1 L (11.4-16.0) gm/dL MCHC 30.5 L (31.0-37.0) g/dL RDW 15.6 H (11.5-15.5) % Plt Count 18 L* D (150-450) k/uL APTT (22.0-30.0) sec ABG pH (7.35-7.45) ABG pO2 (83-108) mmHg ABG HCO3 (21-25) mmol/L ABG O2 Saturation (94-97) % ABG Lactic Acid (0.5-1.6) mmol/L Sodium (137-145) mmol/L Potassium (3.5-5.1) mmol/L Chloride (98-107) mmol/L Carbon Dioxide (22-30) mmol/L Creatinine (0.52-1.04) mg/dL Glucose (74-99) mg/dL POC Glucose (mg/dL) 102 H (75-99) mg/dL Plasma Lactic Acid Duy 5.3 H* (0.7-2.0) mmol/L Calcium (8.4-10.2) mg/dL Ionized Calcium Vinny (4.5-5.3) mg/dL TIBC (228-460) ug/dL % Saturation (12.00-45.00) Ferritin (10.0-291.0) ng/mL Total Protein (PEP) (6.2-8.2) g/dL Albumin (PEP) (3.80-4.90) g/dL Eullx-7-Mstlgqqbm (0.10-0.40) g/dL Ydgyk-7-Kbmhxttdh (0.60-1.00) g/dL Beta Globulins (0.60-1.30) g/dL Gamma Globulins (0.70-1.50) g/dL Urine Appearance (Clear) Ur Specific Muir (1.001-1.035) Urine Protein (Negative) Urine Ketones (Negative) Urine Blood (Negative) Ur Leukocyte Esterase (Negative) Urine RBC (0-5) /hpf Urine WBC (0-5) /hpf Urine Bacteria (None) /hpf Urine Mucus (None) /hpf IgG (700.0-1600.0) mg/dL IgM (40.0-280.0) mg/dL 08/14/20 08/14/20 08/14/20 Range/Units 04:07 04:54 05:25 WBC (3.8-10.6) k/uL Hgb (11.4-16.0) gm/dL MCHC (31.0-37.0) g/dL RDW (11.5-15.5) % Plt Count (150-450) k/uL APTT (22.0-30.0) sec ABG pH 7.28 L (7.35-7.45) ABG pO2 56 L* (83-108) mmHg ABG HCO3 20 L (21-25) mmol/L ABG O2 Saturation 86.7 L (94-97) % ABG Lactic Acid (0.5-1.6) mmol/L Sodium 134 L (137-145) mmol/L Potassium 3.2 L (3.5-5.1) mmol/L Chloride 110 H (98-107) mmol/L Carbon Dioxide 18 L (22-30) mmol/L Creatinine 0.36 L (0.52-1.04) mg/dL Glucose 114 H (74-99) mg/dL POC Glucose (mg/dL) (75-99) mg/dL Plasma Lactic Acid Duy (0.7-2.0) mmol/L Calcium 6.4 L* (8.4-10.2) mg/dL Ionized Calcium Vinny 4.3 L (4.5-5.3) mg/dL TIBC (228-460) ug/dL % Saturation (12.00-45.00) Ferritin (10.0-291.0) ng/mL Total Protein (PEP) (6.2-8.2) g/dL Albumin (PEP) (3.80-4.90) g/dL Pghib-2-Etyovvobo (0.10-0.40) g/dL Blbhw-8-Mtdwmanuj (0.60-1.00) g/dL Beta Globulins (0.60-1.30) g/dL Gamma Globulins (0.70-1.50) g/dL Urine Appearance (Clear) Ur Specific Muir (1.001-1.035) Urine Protein (Negative) Urine Ketones (Negative) Urine Blood (Negative) Ur Leukocyte Esterase (Negative) Urine RBC (0-5) /hpf Urine WBC (0-5) /hpf Urine Bacteria (None) /hpf Urine Mucus (None) /hpf IgG (700.0-1600.0) mg/dL IgM (40.0-280.0) mg/dL 08/14/20 08/14/20 08/14/20 Range/Units 06:00 08:30 11:52 WBC (3.8-10.6) k/uL Hgb (11.4-16.0) gm/dL MCHC (31.0-37.0) g/dL RDW (11.5-15.5) % Plt Count (150-450) k/uL APTT (22.0-30.0) sec ABG pH 7.27 L (7.35-7.45) ABG pO2 287 H (83-108) mmHg ABG HCO3 20 L (21-25) mmol/L ABG O2 Saturation 99.7 H (94-97) % ABG Lactic Acid (0.5-1.6) mmol/L Sodium (137-145) mmol/L Potassium (3.5-5.1) mmol/L Chloride (98-107) mmol/L Carbon Dioxide (22-30) mmol/L Creatinine (0.52-1.04) mg/dL Glucose (74-99) mg/dL POC Glucose (mg/dL) 138 H (75-99) mg/dL Plasma Lactic Acid Duy 3.0 H* (0.7-2.0) mmol/L Calcium (8.4-10.2) mg/dL Ionized Calcium Vinny (4.5-5.3) mg/dL TIBC (228-460) ug/dL % Saturation (12.00-45.00) Ferritin (10.0-291.0) ng/mL Total Protein (PEP) (6.2-8.2) g/dL Albumin (PEP) (3.80-4.90) g/dL Ogndk-1-Ratxsnjhp (0.10-0.40) g/dL Upden-3-Dglixoral (0.60-1.00) g/dL Beta Globulins (0.60-1.30) g/dL Gamma Globulins (0.70-1.50) g/dL Urine Appearance (Clear) Ur Specific Muir (1.001-1.035) Urine Protein (Negative) Urine Ketones (Negative) Urine Blood (Negative) Ur Leukocyte Esterase (Negative) Urine RBC (0-5) /hpf Urine WBC (0-5) /hpf Urine Bacteria (None) /hpf Urine Mucus (None) /hpf IgG (700.0-1600.0) mg/dL IgM (40.0-280.0) mg/dL 08/14/20 08/14/20 Range/Units 12:10 12:10 WBC (3.8-10.6) k/uL Hgb (11.4-16.0) gm/dL MCHC (31.0-37.0) g/dL RDW (11.5-15.5) % Plt Count (150-450) k/uL APTT 41.5 H (22.0-30.0) sec ABG pH (7.35-7.45) ABG pO2 (83-108) mmHg ABG HCO3 (21-25) mmol/L ABG O2 Saturation (94-97) % ABG Lactic Acid (0.5-1.6) mmol/L Sodium (137-145) mmol/L Potassium (3.5-5.1) mmol/L Chloride (98-107) mmol/L Carbon Dioxide (22-30) mmol/L Creatinine (0.52-1.04) mg/dL Glucose (74-99) mg/dL POC Glucose (mg/dL) (75-99) mg/dL Plasma Lactic Acid Duy 3.4 H* (0.7-2.0) mmol/L Calcium (8.4-10.2) mg/dL Ionized Calcium Vinny (4.5-5.3) mg/dL TIBC (228-460) ug/dL % Saturation (12.00-45.00) Ferritin (10.0-291.0) ng/mL Total Protein (PEP) (6.2-8.2) g/dL Albumin (PEP) (3.80-4.90) g/dL Ysooq-6-Wlusnbuec (0.10-0.40) g/dL Bhipk-4-Nlwcgmpco (0.60-1.00) g/dL Beta Globulins (0.60-1.30) g/dL Gamma Globulins (0.70-1.50) g/dL Urine Appearance (Clear) Ur Specific Muir (1.001-1.035) Urine Protein (Negative) Urine Ketones (Negative) Urine Blood (Negative) Ur Leukocyte Esterase (Negative) Urine RBC (0-5) /hpf Urine WBC (0-5) /hpf Urine Bacteria (None) /hpf Urine Mucus (None) /hpf IgG (700.0-1600.0) mg/dL IgM (40.0-280.0) mg/dL Microbiology - Last 24 Hours (Table) 08/13/20 12:24 Blood Culture - Preliminary Blood No Growth after 24 hours 08/14/20 06:22 Sputum Culture - Preliminary Sputum 08/09/20 01:00 Blood Culture - Preliminary Blood No Growth after 120 hours Assessment and Plan Assessment: * Recurrent episodes of unresponsiveness with hypotension, likely sepsis. Seizures unlikely, as patient's seizures has been in remission for number of years. * History of localization-related epilepsy, status post right temporal lobectomy in 1995. Seizures have been under remission since surgery. * Sepsis, small bowel ileus. * Pancytopenia with severe leukopenia, thrombocytopenia. * Major depressive disorder * Hypothyroidism with TSH 5.810. * Pancytopenia Plan: * EEG performed yesterday revealed mild background slowing, consistent with encephalopathy. It did not reveal any epileptiform activity. Continue Depakote at the current dose of 250 mg twice a day, as she has been seizure- free for a number of years. No need to increase the dose or add another antiepileptic agent. We will continue close neurological watch. * Medical management as per IM/critical care and other specialties.
[2020-08-14] MEDS: FILGRASTIM-SNDZ 480 MCG/0.8 ML SYRINGE SQ SCH (15:54)
--- NOTE | 2020-08-14 16:15 | P.PN ---
Subjective Progress Note Date: 08/14/20 Principal diagnosis: Hypovolemic and possible septic shock. This is a 70-year-old female patient, quite pleasant yet hostile and angry towards her family members as the patient is living at home with her and son. She is a chronic smoker in she has underlying COPD. 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 The patient has been progressively getting worse in terms of her nutritional intake. Over the past 1 year, the patient has been having difficulties with dysphagia and keeping food material and. She states that she has been having average bowel movements, somewhat irregular without any bleeding. No abdominal distention. Apparently she's been losing weight. She has a visiting physician was recommended hospice care for her. She hasn't been showed that she would like to take that option at this point in time. Apparently her health has been gradually declining and she is currently down to 56 kg and her body mass index is at 19. She came into the ED as the patient became more lethargic and disoriented and the patient was found to have lactic acidosis with a plasma lactic acid level of 6.9 and she had a mild anion gap metabolic acidosis the bicarb level of 14 and an anion gap of 18. BUN was 37. Creatinine was 0.39. The patient's sodium level was at 1:30 with a potassium level of 6.2. Urinalysis showed +1 protein and +1 ketones on. No signs of any infection. The chest x-ray was normal. The patient came in to the ICU for severe metabolic acidosis and lactic acidosis. Note that she improved with fluid resuscitation and the patient lactic acid level has declined nicely. She is awake. She has some tremors yet she has never been diagnosed having Parkinson. This may be a component of benign essential tremors. She denies having any headaches. Mental status although seems to be appropriate and she is slow in answering questions. The patient is seen today 08/10/2020 and follow-up on the regular medical floor. No pulmonary complaints. Maintaining O2 saturations in the 90s on room air. She's afebrile. Hemodynamically stable. Blood culture reveals no growth to date. Urine culture pending. White count 5.0. Hemoglobin 13.4. Sodium 137. Potassium 3.6. Creatinine 0.33. Most recent lactic acidosis 2.0. Computed tomography scan of the chest abdomen pelvis did not reveal any significant findings other than mild colitis. The patient is seen today 08/13/2020. She had been stable out on the regular medical floor. Early this morning an A team was called due hypotension and hypoglycemia. She was transferred back to the intensive care unit. She is initially maintaining O2 saturations in the 90s on room air. She was afebrile. Thank you her blood pressure remains low. She is initiated on norepinephrine currently at 5 mcg/kg/m. Her lactic acid was explained 7. She received 4 L of fluid resuscitation. She is initiated on ceftriaxone. D545 at 75 ML's per hour. White count 1.0. Hemoglobin 11.1. Platelets 70,000. Sodium 129. Potassium 3.9. Bicarb 17. Creatinine 0.59. Valproic acid level 19.8. Patient was reevaluated today on 08/14/20, patient was admitted to the ICU yesterday, she was hypovolemic and hypotensive she was also hypoglycemic, and I have given the patient's significant amount of fluids upon arrival to the ICU, continued to remain hypotensive, and she decompensated early this morning, patient had to be intubated and she basically received a total of 8 L of fluids in 24 hours, remained basically all recorded, and hypotensive. She is now on mechanical ventilation, with assist control rate of 24 volume of 350 FiO2 of 70% and PEEP of 5. ABG showed a pO2 of 287 pCO2 of 44 pH of 7.27, hence FiO2 was decreased down to 50%. Drips-teague the patient is now on norepinephrine at 0.7 mcg/kg/m, and this is being titrated down once we cut down on propofol. She is on propofol at 30 mcg/kg/m. Patient remains on antibiotics in the form of Zosyn, the only culture that positive is a urine culture showing E. coli. Considering her hypotension, patient received Solu-Cortef, and I would continue Solu-Cortef, since she may have responded to the Solu-Cortef although her cortisol level was normal, remind you patient is chronically on Decadron at home. Chest x-ray showed evidence of mild fluid overload, and bibasilar atelectasis. Uric acid was 5.3 yesterday, and it is 3.4 today. Ionized calcium is on the low side today at 4.3. CBC showed leukopenia with WBC count of 0.4 hemoglobin is 11.1, platelets are 18,000. Significant drop over the last 2 days. Hence we will discontinue Lovenox. And considering her leukopenia, will initiate a hematology consultation. Objective - Vital Signs Vital signs: Vital Signs Temp 98.2 F 08/14/20 04:00 Pulse 116 H 08/14/20 11:04 Resp 24 08/14/20 07:45 BP 97/51 08/14/20 07:45 Pulse Ox 93 L 08/14/20 07:45 Intake & Output 08/13/20 08/14/20 08/14/20 18:59 06:59 18:59 Intake Total 6866.301 2092.329 75 Output Total 310 775 25 Balance 6556.301 1317.329 50 Weight 68.5 kg 69.7 kg 69.7 kg Intake: IV 600 900 75 Dextrose 5%-0.45% NaCl 1, 600 900 75 000 ml @ 75 mls/hr IV . [id number] [facility] Rx#:[id number] Intake, IV Titration 6266.301 992.329 Amount Norepinephrine 4 mg In 166.301 480.461 Sodium Chloride 0.9% 250 ml @ 0.04 MCG/KG/MIN 8. 626 mls/hr IV .Q24H [facility] Rx#:[id number] Piperacillin-Tazobactam 3 100 .375 gm In Sodium Chloride 0.9% 100 ml @ 25 mls/hr IVPB Q8HR [facility] Rx# :[id number] Sodium Chloride 0.9% 1, 6000 000 ml @ 999 mls/hr IV . Q1H1M [facility] Rx#:[id number] Sodium Chloride 0.9% 500 500 ml 500 ml @ 999 mls/hr IV .Q31M [facility] Rx#:[id number] propofoL 1,000 mg In 11.868 Empty Bag 1 bag @ Titrate IV .Q0M [facility] Rx#: [id number] Oral 200 Output: Urine 310 775 25 Other: Voiding Method Indwelling Catheter Indwelling Catheter # Bowel Movements 1 ABP, PAP, CO, CI - Last Documented Arterial Blood Pressure 94/47 - Exam General: 70-year-old female patient, intubated, mechanically ventilated, sedated, on propofol. Derm: warm, dry, multiple areas of excoriation on her legs. Head: atraumatic, normocephalic, symmetric endotracheal tube and orogastric tube are intact. Eyes: EOMI, no lid lag, anicteric sclera Mouth: no lip lesion, mucus membranes moist Cardiovascular: Normal S1 and S2, no S3 gallop, no murmur. Lungs: Decreased breath sound bilaterally no crackles or rhonchi or wheezes. Abdominal: Soft nontender no megaly no rebound no guarding. Ext: No clubbing no edema no cyanosis. Musculoskeletal: No deformities. Neuro: Could not be assessed, patient is on propofol. Psych: Not be assessed. - Labs CBC & Chem 7: 08/14/20 04:07 08/14/20 04:07 Labs: Abnormal Lab Results - Last 24 Hours (Table) 08/13/20 08/13/20 08/13/20 Range/Units 08:19 10:14 13:07 WBC (3.8-10.6) k/uL Hgb (11.4-16.0) gm/dL MCHC (31.0-37.0) g/dL RDW (11.5-15.5) % Plt Count (150-450) k/uL APTT (22.0-30.0) sec ABG pH (7.35-7.45) ABG pO2 (83-108) mmHg ABG HCO3 (21-25) mmol/L ABG O2 Saturation (94-97) % ABG Lactic Acid (0.5-1.6) mmol/L Sodium (137-145) mmol/L Potassium (3.5-5.1) mmol/L Chloride (98-107) mmol/L Carbon Dioxide (22-30) mmol/L Creatinine (0.52-1.04) mg/dL Glucose (74-99) mg/dL POC Glucose (mg/dL) (75-99) mg/dL Plasma Lactic Acid Duy (0.7-2.0) mmol/L Calcium (8.4-10.2) mg/dL Ionized Calcium Vinny (4.5-5.3) mg/dL TIBC 139 L (228-460) ug/dL % Saturation 46.76 H (12.00-45.00) Ferritin 812.9 H (10.0-291.0) ng/mL Total Protein (PEP) 3.1 L (6.2-8.2) g/dL Albumin (PEP) 1.56 L (3.80-4.90) g/dL Jsjmt-4-Jzmlzjbaz 0.41 H (0.10-0.40) g/dL Tpvcb-4-Daoqqtbkq 0.48 L (0.60-1.00) g/dL Beta Globulins 0.35 L (0.60-1.30) g/dL Gamma Globulins 0.30 L (0.70-1.50) g/dL Urine Appearance Cloudy H (Clear) Ur Specific [place] 1.049 H (1.001-1.035) Urine Protein Trace H (Negative) Urine Ketones Trace H (Negative) Urine Blood Trace H (Negative) Ur Leukocyte Esterase Large H (Negative) Urine RBC 15 H (0-5) /hpf Urine WBC 27 H (0-5) /hpf Urine Bacteria Moderate H (None) /hpf Urine Mucus Occasional H (None) /hpf IgG (700.0-1600.0) mg/dL IgM (40.0-280.0) mg/dL 08/13/20 08/13/20 08/13/20 Range/Units 13:07 19:53 20:18 WBC (3.8-10.6) k/uL Hgb (11.4-16.0) gm/dL MCHC (31.0-37.0) g/dL RDW (11.5-15.5) % Plt Count (150-450) k/uL APTT (22.0-30.0) sec ABG pH (7.35-7.45) ABG pO2 (83-108) mmHg ABG HCO3 (21-25) mmol/L ABG O2 Saturation (94-97) % ABG Lactic Acid 6.3 H* (0.5-1.6) mmol/L Sodium (137-145) mmol/L Potassium (3.5-5.1) mmol/L Chloride (98-107) mmol/L Carbon Dioxide (22-30) mmol/L Creatinine (0.52-1.04) mg/dL Glucose (74-99) mg/dL POC Glucose (mg/dL) 102 H (75-99) mg/dL Plasma Lactic Acid Duy (0.7-2.0) mmol/L Calcium (8.4-10.2) mg/dL Ionized Calcium Vinny (4.5-5.3) mg/dL TIBC (228-460) ug/dL % Saturation (12.00-45.00) Ferritin (10.0-291.0) ng/mL Total Protein (PEP) (6.2-8.2) g/dL Albumin (PEP) (3.80-4.90) g/dL Zrgqw-9-Zwfhilufx (0.10-0.40) g/dL Kysqx-7-Nnwylgrvc (0.60-1.00) g/dL Beta Globulins (0.60-1.30) g/dL Gamma Globulins (0.70-1.50) g/dL Urine Appearance (Clear) Ur Specific [place] (1.001-1.035) Urine Protein (Negative) Urine Ketones (Negative) Urine Blood (Negative) Ur Leukocyte Esterase (Negative) Urine RBC (0-5) /hpf Urine WBC (0-5) /hpf Urine Bacteria (None) /hpf Urine Mucus (None) /hpf IgG 340.0 L (700.0-1600.0) mg/dL IgM 22.8 L (40.0-280.0) mg/dL 08/13/20 08/14/20 08/14/20 Range/Units 22:31 04:07 04:07 WBC 0.4 L* (3.8-10.6) k/uL Hgb 11.1 L (11.4-16.0) gm/dL MCHC 30.5 L (31.0-37.0) g/dL RDW 15.6 H (11.5-15.5) % Plt Count 18 L* D (150-450) k/uL APTT (22.0-30.0) sec ABG pH (7.35-7.45) ABG pO2 (83-108) mmHg ABG HCO3 (21-25) mmol/L ABG O2 Saturation (94-97) % ABG Lactic Acid (0.5-1.6) mmol/L Sodium 134 L (137-145) mmol/L Potassium 3.2 L (3.5-5.1) mmol/L Chloride 110 H (98-107) mmol/L Carbon Dioxide 18 L (22-30) mmol/L Creatinine 0.36 L (0.52-1.04) mg/dL Glucose 114 H (74-99) mg/dL POC Glucose (mg/dL) (75-99) mg/dL Plasma Lactic Acid Duy 5.3 H* (0.7-2.0) mmol/L Calcium 6.4 L* (8.4-10.2) mg/dL Ionized Calcium Vinny (4.5-5.3) mg/dL TIBC (228-460) ug/dL % Saturation (12.00-45.00) Ferritin (10.0-291.0) ng/mL Total Protein (PEP) (6.2-8.2) g/dL Albumin (PEP) (3.80-4.90) g/dL Olbhp-3-Goxxgfnzv (0.10-0.40) g/dL Msmrk-6-Imejzcxms (0.60-1.00) g/dL Beta Globulins (0.60-1.30) g/dL Gamma Globulins (0.70-1.50) g/dL Urine Appearance (Clear) Ur Specific [place] (1.001-1.035) Urine Protein (Negative) Urine Ketones (Negative) Urine Blood (Negative) Ur Leukocyte Esterase (Negative) Urine RBC (0-5) /hpf Urine WBC (0-5) /hpf Urine Bacteria (None) /hpf Urine Mucus (None) /hpf IgG (700.0-1600.0) mg/dL IgM (40.0-280.0) mg/dL 08/14/20 08/14/20 08/14/20 Range/Units 04:54 05:25 06:00 WBC (3.8-10.6) k/uL Hgb (11.4-16.0) gm/dL MCHC (31.0-37.0) g/dL RDW (11.5-15.5) % Plt Count (150-450) k/uL APTT (22.0-30.0) sec ABG pH 7.28 L 7.27 L (7.35-7.45) ABG pO2 56 L* 287 H (83-108) mmHg ABG HCO3 20 L 20 L (21-25) mmol/L ABG O2 Saturation 86.7 L 99.7 H (94-97) % ABG Lactic Acid (0.5-1.6) mmol/L Sodium (137-145) mmol/L Potassium (3.5-5.1) mmol/L Chloride (98-107) mmol/L Carbon Dioxide (22-30) mmol/L Creatinine (0.52-1.04) mg/dL Glucose (74-99) mg/dL POC Glucose (mg/dL) (75-99) mg/dL Plasma Lactic Acid Duy (0.7-2.0) mmol/L Calcium (8.4-10.2) mg/dL Ionized Calcium Vinny 4.3 L (4.5-5.3) mg/dL TIBC (228-460) ug/dL % Saturation (12.00-45.00) Ferritin (10.0-291.0) ng/mL Total Protein (PEP) (6.2-8.2) g/dL Albumin (PEP) (3.80-4.90) g/dL Xqszv-4-Qfnjllfmp (0.10-0.40) g/dL Glgaj-0-Dwvowupiq (0.60-1.00) g/dL Beta Globulins (0.60-1.30) g/dL Gamma Globulins (0.70-1.50) g/dL Urine Appearance (Clear) Ur Specific [place] (1.001-1.035) Urine Protein (Negative) Urine Ketones (Negative) Urine Blood (Negative) Ur Leukocyte Esterase (Negative) Urine RBC (0-5) /hpf Urine WBC (0-5) /hpf Urine Bacteria (None) /hpf Urine Mucus (None) /hpf IgG (700.0-1600.0) mg/dL IgM (40.0-280.0) mg/dL 08/14/20 08/14/20 08/14/20 Range/Units 08:30 11:52 12:10 WBC (3.8-10.6) k/uL Hgb (11.4-16.0) gm/dL MCHC (31.0-37.0) g/dL RDW (11.5-15.5) % Plt Count (150-450) k/uL APTT 41.5 H (22.0-30.0) sec ABG pH (7.35-7.45) ABG pO2 (83-108) mmHg ABG HCO3 (21-25) mmol/L ABG O2 Saturation (94-97) % ABG Lactic Acid (0.5-1.6) mmol/L Sodium (137-145) mmol/L Potassium (3.5-5.1) mmol/L Chloride (98-107) mmol/L Carbon Dioxide (22-30) mmol/L Creatinine (0.52-1.04) mg/dL Glucose (74-99) mg/dL POC Glucose (mg/dL) 138 H (75-99) mg/dL Plasma Lactic Acid Duy 3.0 H* (0.7-2.0) mmol/L Calcium (8.4-10.2) mg/dL Ionized Calcium Vinny (4.5-5.3) mg/dL TIBC (228-460) ug/dL % Saturation (12.00-45.00) Ferritin (10.0-291.0) ng/mL Total Protein (PEP) (6.2-8.2) g/dL Albumin (PEP) (3.80-4.90) g/dL Ikxaf-4-Zbmjtttqq (0.10-0.40) g/dL Hnyuk-3-Kwgyucenb (0.60-1.00) g/dL Beta Globulins (0.60-1.30) g/dL Gamma Globulins (0.70-1.50) g/dL Urine Appearance (Clear) Ur Specific [place] (1.001-1.035) Urine Protein (Negative) Urine Ketones (Negative) Urine Blood (Negative) Ur Leukocyte Esterase (Negative) Urine RBC (0-5) /hpf Urine WBC (0-5) /hpf Urine Bacteria (None) /hpf Urine Mucus (None) /hpf IgG (700.0-1600.0) mg/dL IgM (40.0-280.0) mg/dL 08/14/20 Range/Units 12:10 WBC (3.8-10.6) k/uL Hgb (11.4-16.0) gm/dL MCHC (31.0-37.0) g/dL RDW (11.5-15.5) % Plt Count (150-450) k/uL APTT (22.0-30.0) sec ABG pH (7.35-7.45) ABG pO2 (83-108) mmHg ABG HCO3 (21-25) mmol/L ABG O2 Saturation (94-97) % ABG Lactic Acid (0.5-1.6) mmol/L Sodium (137-145) mmol/L Potassium (3.5-5.1) mmol/L Chloride (98-107) mmol/L Carbon Dioxide (22-30) mmol/L Creatinine (0.52-1.04) mg/dL Glucose (74-99) mg/dL POC Glucose (mg/dL) (75-99) mg/dL Plasma Lactic Acid Duy 3.4 H* (0.7-2.0) mmol/L Calcium (8.4-10.2) mg/dL Ionized Calcium Vinny (4.5-5.3) mg/dL TIBC (228-460) ug/dL % Saturation (12.00-45.00) Ferritin (10.0-291.0) ng/mL Total Protein (PEP) (6.2-8.2) g/dL Albumin (PEP) (3.80-4.90) g/dL Rxnha-2-Nfmhxntnr (0.10-0.40) g/dL Uotdw-3-Qsdafehqa (0.60-1.00) g/dL Beta Globulins (0.60-1.30) g/dL Gamma Globulins (0.70-1.50) g/dL Urine Appearance (Clear) Ur Specific [place] (1.001-1.035) Urine Protein (Negative) Urine Ketones (Negative) Urine Blood (Negative) Ur Leukocyte Esterase (Negative) Urine RBC (0-5) /hpf Urine WBC (0-5) /hpf Urine Bacteria (None) /hpf Urine Mucus (None) /hpf IgG (700.0-1600.0) mg/dL IgM (40.0-280.0) mg/dL Microbiology - Last 24 Hours (Table) 08/14/20 06:22 Gram Stain - Preliminary Sputum Sputum Culture - Preliminary 08/13/20 13:07 Blood Culture - Preliminary Blood No Growth after 24 hours 08/13/20 12:24 Blood Culture - Preliminary Blood No Growth after 24 hours 08/09/20 01:00 Blood Culture - Preliminary Blood No Growth after 120 hours Assessment and Plan Assessment: Impression: Acute hypoxic respiratory failure secondary to sepsis, and septic shock. Acute urinary tract infection secondary to E. coli and strep agalactiae Pancytopenia, could be related to sepsis, however will ask for hematology consultation, in the meantime discontinue Lovenox. Type 2 diabetes. History of hypertension. History of seizure disorder and previous frontal lobe resection. History of COPD currently inactive. History of degenerative joint disease. Recommendation: Continue ventilatory support. Continue hemodynamic support. Resume Solu-Cortef. Hold Lovenox. Address nutritional support via nasogastric tube/enteral feeding. Continue Zosyn. Adjust according to final cultures. Hematology consultation. GI and DVT prophylaxis. Decrease FiO2 to 50%. And start enteral feeding today. Wean norepinephrine and titrate accordingly. Continue to monitor lactic acid. Patient is obviously critically ill, updated her yesterday on her condition, Critical care time is 35 Time with Patient: Greater than 30
[2020-08-14 17:07] LABS: Glucose,Whole Blood 86 mg/dL (75-99)
--- NOTE | 2020-08-14 17:26 | P.PN ---
Progress Note - Text Progress Note Date: 08/14/20 Principal diagnosis: weakness History of presenting complaint: Patient is a 70-year-old female with past medical history of diabetes mellitus type 2, COPD, and tremor who was brought into the emergency room by family members due to lethargy and anorexia. Patient has been following with visiting physicians and underwent video fluoroscopy on 07/2520 for possible dysphagia however no dysphagia was noted exam. Apparently visiting physicians had one to discuss hospice care with the patient due to her overall functional decline. Yesterday she became more lethargic and disoriented and subsequently EMS was activated and the patient was brought to the hospital. On EMS arrival the patient was significantly hypotensive. On arrival to the ER she underwent an extensive evaluation. She was tachycardic with a pulse of 109 and blood pressure of 97/65. Initial laboratory analysis showed sodium 130, potassium 6.2, carbon dioxide 14, anion gap 18, BUN 37, creatinine 0.39, glucose 164, plasma lactic acid 6.9. Her total bilirubin was 1.7 with an AST of 50. Urinalysis showed 1+ protein 1+ ketones 1+ bilirubin and 36 hyalin casts. She was started on IV fluids. Chest x-ray was obtained which was normal. She was subsequently admitted to the ICU for severe metabolic acidosis. After admission she did express suicidal ideation. Suicide sitter was placed and psychiatry was consulted. She was recommended for sade psych when medically stable. She was unable to urinate and a joe was placed. She was noted to have vaginal discharge and was started on monastat. Her lactic acid cleared. She was not eating much. She was started on Remeron by psychiatry. She has already undergone a modified barium swallow study which did not demonstrate any signs of dysphasia. She continued to have low appetite and electrolyte disturbances which were replaced daily. She was started on marinol for appetite stimulation on 08/12. She also developed abdominal pain on 08/[address] abd and pelvis ordered to followup on mild colonic distension noted on last CT. Initially family had said they wanted to her to go home with hospice. We were adjusting medications to see if we could increase appetite and stabilize mood. Anand Walter NOTE: Anand walter called at 0800. Arrived to room to find patient unresponsive. O2 at 98%, BP 60/40, Strong pule that was regular. I ordered a second IV and then 2L IVF bolus. Patient with + Gag. She slow began to awaken. No tongue biting, +Joe, no loss of bowel. Per nursing no tonic-clonic movements prior to my arrival. PTs blood pressure began to increase to 85/56 and patient was awake and alert. She appeared back to baseline and was following commands. Patient became hypertensive at to be transferred ICU. Patient intubated. Today-laying in bed. Intubated. Drips include norepinephrine, propofol,. Telemetry- tachycardia Review of systems cannot be done, patient intubated Active Medications Chlorhexidine Gluconate (Chlorhexidine Gluconate 15 Ml Cup) 15 ml MUCOUS MEM BID [facility] Last Admin: 08/14/20 11:59 Dose: 15 ml Documented by: Filgrastim-Sndz (Filgrastim-Sndz 480 Mcg/0.8 Ml Syringe) 480 mcg SQ DAILY [facility] Last Admin: 08/14/20 15:54 Dose: 480 mcg Documented by: Hydrocortisone Sodium Succinate (Hydrocortisone Succinate 100 Mg/2 Ml Vial) 100 mg IV Q8HR [facility] Last Admin: 08/14/20 11:59 Dose: 100 mg Documented by: Dextrose/Sodium Chloride (Dextrose 5%-1/2ns Iv Soln) 1,000 mls @ 75 mls/hr IV .[id number] [facility] Last Admin: 08/14/20 00:09 Dose: 75 mls/hr Documented by: Norepinephrine Bitartrate 4 mg (/ Sodium Chloride) 254 mls @ 8.626 mls/hr IV .Q24H [facility]; Protocol Last Titration: 08/14/20 05:39 Dose: 0.37 mcg/kg/min, 79.789 mls/hr Documented by: Valproic Acid 250 mg/ Sodium (Chloride) 102.5 mls @ 100 mls/hr IVPB BID [facility] Last Admin: 08/14/20 11:59 Dose: 100 mls/hr Documented by: Piperacillin Sod/Tazobactam (Sod 3.375 gm/ Sodium Chloride) 100 mls @ 25 mls/hr IVPB Q8HR [facility] Last Admin: 08/14/20 08:02 Dose: 25 mls/hr Documented by: Propofol 1,000 mg/ IV Solution 100 mls @ 0 mls/hr IV .Q0M [facility]; Protocol Last Titration: 08/14/20 06:49 Dose: 35 mcg/kg/min, 14.637 mls/hr Documented by: Vasopressin 60 unit/ Sodium (Chloride) 153 mls @ 4.59 mls/hr IV .Q24H [facility] Last Admin: 08/14/20 11:44 Dose: Not Given Documented by: Insulin Aspart (Insulin Aspart (Novolog) 100 Unit/Ml Vial) 0 unit SQ ACHS [facility]; Protocol Last Admin: 08/14/20 15:51 Dose: Not Given Documented by: Ipratropium Rupert (Ipratropium 0.5 Mg/2.5 Ml Nebu) 0.5 mg INHALATION RT-QID [facility] Last Admin: 08/14/20 16:43 Dose: 0.5 mg Documented by: Mirtazapine (Mirtazapine 15 Mg Tab) 30 mg PO [facility] Last Admin: 08/13/20 22:04 Dose: 30 mg Documented by: Miscellaneous Information (Potassium Replacement Protocol 1 Each Misc) 1 each MISCELLANE DAILY PRN; Protocol PRN Reason: Per Protocol Naloxone HCl (Naloxone 0.4 Mg/Ml 1 Ml Vial) 0.2 mg IV Q2M PRN PRN Reason: Opioid Reversal Ondansetron HCl (Ondansetron 4 Mg/2 Ml Vial) 4 mg IVP Q6HR PRN PRN Reason: Nausea And Vomiting Last Admin: 08/09/20 09:55 Dose: 4 mg Documented by: Pantoprazole Sodium (Pantoprazole 40 Mg/10 Ml Vial) 40 mg IVP BID [facility] Last Admin: 08/14/20 12:01 Dose: 40 mg Documented by: Primidone (Primidone 250 Mg Tab) 250 mg PO DAILY [facility] Last Admin: 08/14/20 11:59 Dose: 250 mg Documented by: Quetiapine Fumarate (Quetiapine 25 Mg Tab) 25 mg PO [facility] Last Admin: 08/13/20 22:04 Dose: 25 mg Documented by: White count was-97.6, 1:30, 30, 134/53, 94% on the ventilator General:-, appears older than stated age, thin cachexia, temporal wasting loss of buccal fat , intubated Derm: warm, dry, multiple areas of excoriation on her legs. Eyes: Pupils equal, conjunctiva normal Cardiovascular: S1S2 reg, no murmur, no edema Lungs: Decreased breath sounds, no rhonchi, no rales , Abdominal: soft, +tender to palpation epigastric, no guarding, no appreciable organomegaly Ext: + gross muscle atrophy, no edema, no contractures Neuro: CN II-XI grossly intact, no focal neuro deficits Psych: Unable to assess, patient intubated INVESTIGATIONS, reviewed in the clinical context: White count 0.4 hemoglobin 11 platelets 18 potassium 3.2 creatinine 0.36 lactic acidosis Previous testing: Computed tomography scan of the brain-chronic ischemic asyumsc-gpp-xupsywa EEG finding suggestive of toxic metabolic encephalopathy. No epileptiform activity Computed tomography scan of the abdomen-multiple fluid-filled loops of bowel Assessment and plan: Hypotension - suspect due to dehydration and decreased oral intake -Continue with IV fluid bolus Acute episode of delirium Pancytopenia -Suspect hypoproliferative disease secondary to decreased oral intake and vitamin deficiency -Check retake count, ferritin, TIBC, iron sat, RBC folate, and B12 level -Consult hematology oncology Anorexia with severe protein calorie malnutrition and failure to thrive -Dietary recs -Supplements -Encourage oral intake - Plan will be for PEG tube once stable. - remeron initiated by psych - maranol - Patient passed barrium swallow study as outpatient on 07/25/2020 - CT chest/abd pelvis negative for malignancy Hx of TBI with right temporal lobectomy - Out patient follow-up, suspect personality changes Medical debility Electrolyte derangement - replace and recheck Urinary retention - joe in place - nystatin Depression - Psychiatry recs: no longer suicidal, remeron, seroquel, possible psych placement on discharge Diabetes mellitus type 2 - A1c 5.5 -Sliding-scale insulin -diet controlled at home COPD without exacerbation - prn bronchodilators - unknown severity - spiriva Asymptomiatic bacturia - no need for treatment Hyperkalemia, resolved Lactic acidosis suspect secondary to dehydration and starvation, resolved Hyponatremia secondary to dehydration, resolved Suicidal ideation, resolved Elevated bilirubin and AST, resolved -Acute hypoxic respiratory failure-on ventilator support Overall prognosis guarded. Currently full code. We'll readdress with family.
--- NOTE | 2020-08-14 18:02 | P.PN ---
Subjective Progress Note Date: 08/14/20 Principal diagnosis: pancytopenia patient remains intubated, no signs or symptoms of distress Objective - Vital Signs Vital signs: Vital Signs Temp 97.6 F 08/14/20 16:00 Pulse 138 H 08/14/20 16:51 Resp 30 H 08/14/20 16:00 BP 97/51 08/14/20 07:45 Pulse Ox 94 L 08/14/20 16:00 Intake & Output 08/13/20 08/14/20 08/14/20 18:59 06:59 18:59 Intake Total 6866.301 2092.329 750 Output Total 310 775 250 Balance 6556.301 1317.329 500 Weight 68.5 kg 69.7 kg 69.7 kg Intake: IV 600 900 750 0.9 450 Dextrose 5%-0.45% NaCl 1, 600 900 300 000 ml @ 75 mls/hr IV . [id number] [facility] Rx#:[id number] Intake, IV Titration 6266.301 992.329 Amount Norepinephrine 4 mg In 166.301 480.461 Sodium Chloride 0.9% 250 ml @ 0.04 MCG/KG/MIN 8. 626 mls/hr IV .Q24H [facility] Rx#:[id number] Piperacillin-Tazobactam 3 100 .375 gm In Sodium Chloride 0.9% 100 ml @ 25 mls/hr IVPB Q8HR [facility] Rx# :[id number] Sodium Chloride 0.9% 1, 6000 000 ml @ 999 mls/hr IV . Q1H1M [facility] Rx#:[id number] Sodium Chloride 0.9% 500 500 ml 500 ml @ 999 mls/hr IV .Q31M [facility] Rx#:[id number] propofoL 1,000 mg In 11.868 Empty Bag 1 bag @ Titrate IV .Q0M [facility] Rx#: [id number] Oral 200 Output: Urine 310 775 250 Other: Voiding Method Indwelling Catheter Indwelling Catheter # Bowel Movements 1 ABP, PAP, CO, CI - Last Documented Arterial Blood Pressure 134/53 - Constitutional General appearance: Present: average body habitus - Respiratory Respiratory: bilateral: CTA - Cardiovascular Heart sounds: normal: S1, S2 Abnormal Heart Sounds: Present: systolic murmur - Peripheral edema leg Peripheral Edema: bilateral: None - Gastrointestinal General gastrointestinal: Present: normal bowel sounds, soft - Labs CBC & Chem 7: 08/14/20 04:07 08/14/20 04:07 Labs: Abnormal Lab Results - Last 24 Hours (Table) 08/13/20 08/13/20 08/13/20 Range/Units 08:19 10:14 13:07 WBC (3.8-10.6) k/uL Hgb (11.4-16.0) gm/dL MCHC (31.0-37.0) g/dL RDW (11.5-15.5) % Plt Count (150-450) k/uL APTT (22.0-30.0) sec ABG pH (7.35-7.45) ABG pO2 (83-108) mmHg ABG HCO3 (21-25) mmol/L ABG O2 Saturation (94-97) % ABG Lactic Acid (0.5-1.6) mmol/L Sodium (137-145) mmol/L Potassium (3.5-5.1) mmol/L Chloride (98-107) mmol/L Carbon Dioxide (22-30) mmol/L Creatinine (0.52-1.04) mg/dL Glucose (74-99) mg/dL POC Glucose (mg/dL) (75-99) mg/dL Plasma Lactic Acid Duy (0.7-2.0) mmol/L Calcium (8.4-10.2) mg/dL Ionized Calcium Vinny (4.5-5.3) mg/dL TIBC 139 L (228-460) ug/dL % Saturation 46.76 H (12.00-45.00) Ferritin 812.9 H (10.0-291.0) ng/mL Total Protein (PEP) 3.1 L (6.2-8.2) g/dL Albumin (PEP) 1.56 L (3.80-4.90) g/dL Cezdr-4-Bwtxahuau 0.41 H (0.10-0.40) g/dL Ydjxa-4-Xyaludrga 0.48 L (0.60-1.00) g/dL Beta Globulins 0.35 L (0.60-1.30) g/dL Gamma Globulins 0.30 L (0.70-1.50) g/dL Urine Appearance Cloudy H (Clear) Ur Specific [place] 1.049 H (1.001-1.035) Urine Protein Trace H (Negative) Urine Ketones Trace H (Negative) Urine Blood Trace H (Negative) Ur Leukocyte Esterase Large H (Negative) Urine RBC 15 H (0-5) /hpf Urine WBC 27 H (0-5) /hpf Urine Bacteria Moderate H (None) /hpf Urine Mucus Occasional H (None) /hpf IgG (700.0-1600.0) mg/dL IgM (40.0-280.0) mg/dL 08/13/20 08/13/20 08/13/20 Range/Units 13:07 19:53 20:18 WBC (3.8-10.6) k/uL Hgb (11.4-16.0) gm/dL MCHC (31.0-37.0) g/dL RDW (11.5-15.5) % Plt Count (150-450) k/uL APTT (22.0-30.0) sec ABG pH (7.35-7.45) ABG pO2 (83-108) mmHg ABG HCO3 (21-25) mmol/L ABG O2 Saturation (94-97) % ABG Lactic Acid 6.3 H* (0.5-1.6) mmol/L Sodium (137-145) mmol/L Potassium (3.5-5.1) mmol/L Chloride (98-107) mmol/L Carbon Dioxide (22-30) mmol/L Creatinine (0.52-1.04) mg/dL Glucose (74-99) mg/dL POC Glucose (mg/dL) 102 H (75-99) mg/dL Plasma Lactic Acid Duy (0.7-2.0) mmol/L Calcium (8.4-10.2) mg/dL Ionized Calcium Vinny (4.5-5.3) mg/dL TIBC (228-460) ug/dL % Saturation (12.00-45.00) Ferritin (10.0-291.0) ng/mL Total Protein (PEP) (6.2-8.2) g/dL Albumin (PEP) (3.80-4.90) g/dL Hfowl-6-Qjfsxjdmm (0.10-0.40) g/dL Iygxq-7-Oxycekymi (0.60-1.00) g/dL Beta Globulins (0.60-1.30) g/dL Gamma Globulins (0.70-1.50) g/dL Urine Appearance (Clear) Ur Specific [place] (1.001-1.035) Urine Protein (Negative) Urine Ketones (Negative) Urine Blood (Negative) Ur Leukocyte Esterase (Negative) Urine RBC (0-5) /hpf Urine WBC (0-5) /hpf Urine Bacteria (None) /hpf Urine Mucus (None) /hpf IgG 340.0 L (700.0-1600.0) mg/dL IgM 22.8 L (40.0-280.0) mg/dL 08/13/20 08/14/20 08/14/20 Range/Units 22:31 04:07 04:07 WBC 0.4 L* (3.8-10.6) k/uL Hgb 11.1 L (11.4-16.0) gm/dL MCHC 30.5 L (31.0-37.0) g/dL RDW 15.6 H (11.5-15.5) % Plt Count 18 L* D (150-450) k/uL APTT (22.0-30.0) sec ABG pH (7.35-7.45) ABG pO2 (83-108) mmHg ABG HCO3 (21-25) mmol/L ABG O2 Saturation (94-97) % ABG Lactic Acid (0.5-1.6) mmol/L Sodium 134 L (137-145) mmol/L Potassium 3.2 L (3.5-5.1) mmol/L Chloride 110 H (98-107) mmol/L Carbon Dioxide 18 L (22-30) mmol/L Creatinine 0.36 L (0.52-1.04) mg/dL Glucose 114 H (74-99) mg/dL POC Glucose (mg/dL) (75-99) mg/dL Plasma Lactic Acid Duy 5.3 H* (0.7-2.0) mmol/L Calcium 6.4 L* (8.4-10.2) mg/dL Ionized Calcium Vinny (4.5-5.3) mg/dL TIBC (228-460) ug/dL % Saturation (12.00-45.00) Ferritin (10.0-291.0) ng/mL Total Protein (PEP) (6.2-8.2) g/dL Albumin (PEP) (3.80-4.90) g/dL Mlacl-8-Wkomhjteb (0.10-0.40) g/dL Pynzy-7-Rchofipln (0.60-1.00) g/dL Beta Globulins (0.60-1.30) g/dL Gamma Globulins (0.70-1.50) g/dL Urine Appearance (Clear) Ur Specific [place] (1.001-1.035) Urine Protein (Negative) Urine Ketones (Negative) Urine Blood (Negative) Ur Leukocyte Esterase (Negative) Urine RBC (0-5) /hpf Urine WBC (0-5) /hpf Urine Bacteria (None) /hpf Urine Mucus (None) /hpf IgG (700.0-1600.0) mg/dL IgM (40.0-280.0) mg/dL 08/14/20 08/14/20 08/14/20 Range/Units 04:54 05:25 06:00 WBC (3.8-10.6) k/uL Hgb (11.4-16.0) gm/dL MCHC (31.0-37.0) g/dL RDW (11.5-15.5) % Plt Count (150-450) k/uL APTT (22.0-30.0) sec ABG pH 7.28 L 7.27 L (7.35-7.45) ABG pO2 56 L* 287 H (83-108) mmHg ABG HCO3 20 L 20 L (21-25) mmol/L ABG O2 Saturation 86.7 L 99.7 H (94-97) % ABG Lactic Acid (0.5-1.6) mmol/L Sodium (137-145) mmol/L Potassium (3.5-5.1) mmol/L Chloride (98-107) mmol/L Carbon Dioxide (22-30) mmol/L Creatinine (0.52-1.04) mg/dL Glucose (74-99) mg/dL POC Glucose (mg/dL) (75-99) mg/dL Plasma Lactic Acid Duy (0.7-2.0) mmol/L Calcium (8.4-10.2) mg/dL Ionized Calcium Vinny 4.3 L (4.5-5.3) mg/dL TIBC (228-460) ug/dL % Saturation (12.00-45.00) Ferritin (10.0-291.0) ng/mL Total Protein (PEP) (6.2-8.2) g/dL Albumin (PEP) (3.80-4.90) g/dL Fzrzc-0-Ghqnccmng (0.10-0.40) g/dL Hnpwd-1-Pbzjkqkgk (0.60-1.00) g/dL Beta Globulins (0.60-1.30) g/dL Gamma Globulins (0.70-1.50) g/dL Urine Appearance (Clear) Ur Specific [place] (1.001-1.035) Urine Protein (Negative) Urine Ketones (Negative) Urine Blood (Negative) Ur Leukocyte Esterase (Negative) Urine RBC (0-5) /hpf Urine WBC (0-5) /hpf Urine Bacteria (None) /hpf Urine Mucus (None) /hpf IgG (700.0-1600.0) mg/dL IgM (40.0-280.0) mg/dL 08/14/20 08/14/20 08/14/20 Range/Units 08:30 11:52 12:10 WBC (3.8-10.6) k/uL Hgb (11.4-16.0) gm/dL MCHC (31.0-37.0) g/dL RDW (11.5-15.5) % Plt Count (150-450) k/uL APTT 41.5 H (22.0-30.0) sec ABG pH (7.35-7.45) ABG pO2 (83-108) mmHg ABG HCO3 (21-25) mmol/L ABG O2 Saturation (94-97) % ABG Lactic Acid (0.5-1.6) mmol/L Sodium (137-145) mmol/L Potassium (3.5-5.1) mmol/L Chloride (98-107) mmol/L Carbon Dioxide (22-30) mmol/L Creatinine (0.52-1.04) mg/dL Glucose (74-99) mg/dL POC Glucose (mg/dL) 138 H (75-99) mg/dL Plasma Lactic Acid Duy 3.0 H* (0.7-2.0) mmol/L Calcium (8.4-10.2) mg/dL Ionized Calcium Vinny (4.5-5.3) mg/dL TIBC (228-460) ug/dL % Saturation (12.00-45.00) Ferritin (10.0-291.0) ng/mL Total Protein (PEP) (6.2-8.2) g/dL Albumin (PEP) (3.80-4.90) g/dL Mdted-5-Rrsrlyall (0.10-0.40) g/dL Erpzs-5-Etekzfhjl (0.60-1.00) g/dL Beta Globulins (0.60-1.30) g/dL Gamma Globulins (0.70-1.50) g/dL Urine Appearance (Clear) Ur Specific [place] (1.001-1.035) Urine Protein (Negative) Urine Ketones (Negative) Urine Blood (Negative) Ur Leukocyte Esterase (Negative) Urine RBC (0-5) /hpf Urine WBC (0-5) /hpf Urine Bacteria (None) /hpf Urine Mucus (None) /hpf IgG (700.0-1600.0) mg/dL IgM (40.0-280.0) mg/dL 08/14/20 Range/Units 12:10 WBC (3.8-10.6) k/uL Hgb (11.4-16.0) gm/dL MCHC (31.0-37.0) g/dL RDW (11.5-15.5) % Plt Count (150-450) k/uL APTT (22.0-30.0) sec ABG pH (7.35-7.45) ABG pO2 (83-108) mmHg ABG HCO3 (21-25) mmol/L ABG O2 Saturation (94-97) % ABG Lactic Acid (0.5-1.6) mmol/L Sodium (137-145) mmol/L Potassium (3.5-5.1) mmol/L Chloride (98-107) mmol/L Carbon Dioxide (22-30) mmol/L Creatinine (0.52-1.04) mg/dL Glucose (74-99) mg/dL POC Glucose (mg/dL) (75-99) mg/dL Plasma Lactic Acid Duy 3.4 H* (0.7-2.0) mmol/L Calcium (8.4-10.2) mg/dL Ionized Calcium Vinny (4.5-5.3) mg/dL TIBC (228-460) ug/dL % Saturation (12.00-45.00) Ferritin (10.0-291.0) ng/mL Total Protein (PEP) (6.2-8.2) g/dL Albumin (PEP) (3.80-4.90) g/dL Plwnj-0-Ienbophhf (0.10-0.40) g/dL Gawni-9-Ansuvmlvi (0.60-1.00) g/dL Beta Globulins (0.60-1.30) g/dL Gamma Globulins (0.70-1.50) g/dL Urine Appearance (Clear) Ur Specific [place] (1.001-1.035) Urine Protein (Negative) Urine Ketones (Negative) Urine Blood (Negative) Ur Leukocyte Esterase (Negative) Urine RBC (0-5) /hpf Urine WBC (0-5) /hpf Urine Bacteria (None) /hpf Urine Mucus (None) /hpf IgG (700.0-1600.0) mg/dL IgM (40.0-280.0) mg/dL Microbiology - Last 24 Hours (Table) 08/14/20 06:22 Gram Stain - Preliminary Sputum Sputum Culture - Preliminary 08/13/20 13:07 Blood Culture - Preliminary Blood No Growth after 24 hours 08/13/20 12:24 Blood Culture - Preliminary Blood No Growth after 24 hours 08/09/20 01:00 Blood Culture - Preliminary Blood No Growth after 120 hours Assessment and Plan (1) Pancytopenia Narrative/Plan: Pancytopenia workup in progress. This is not felt to be a proliferative disorder. This is felt that this is a combination of malnutrition and acute illness. Granix has been started for the low white blood cell count. Hemoglobin is stable and adequate at 11.1. Lids 18,000 with normal coags. Transfuse for platelets less than 10,000 or if bleeding. Patient does have a low IgG and IgM levels. May benefit from IVIg. [employer] and lambda light chain values are within normal limits. Iron panel most suggestive of inflammation Current Visit: Yes Status: Acute Priority: High Code(s): D61.818 - OTHER PANCYTOPENIA SNOMED Code(s): 043320475 (2) Hypogammaglobulinaemia, unspecified Narrative/Plan: IgG 340 and IgM 22.8. Discussed case with Pharmacist, message will be passed onto the Pharmacist tomorrow. Possible infusion with IVIG Current Visit: Yes Status: Acute Priority: High Code(s): D80.1 - N ONFAMILIAL HYPOGAMMAGLOBULINEMIA SNOMED Code(s): 581372452
[2020-08-14 18:52] LABS: Glucose,Whole Blood 93 mg/dL (75-99)
[2020-08-14] MEDS: QUEtiapine 25 MG TAB PO SCH (21:49)
[2020-08-14] MEDS: MIRTAZAPINE 15 MG TAB PO SCH (21:49)
[2020-08-14] MEDS ORDERED: POTASSIUM BICARBONATE/CIT AC 20 MEQ TABLET.EFF NG-TUBE SCH (22:00)
[2020-08-14] MEDS: NOREPINEPHRINE 32 MG in SODIUM CHLORIDE 0.9% 218 ML IV SCH (22:31)
[2020-08-14 23:42] LABS: Glucose,Whole Blood 83 mg/dL (75-99)
[2020-08-15] MEDS: PIPERACILLIN-TAZOBACTAM 3.375 GM in SODIUM CHLORIDE 0.9% 100 ML IVPB SCH ×3 (00:16→16:15)
[2020-08-15] MEDS: DEXTROSE 5%-0.45% NACL 1,000 ML IV SCH (00:18)
[2020-08-15] MEDS: INSULIN ASPART (NovoLOG) 100 UNIT/ML VIAL SQ SCH ×4 (00:20→17:32)
[2020-08-15] MEDS: HYDROCORTISONE SUCCINATE 100 MG/2 ML VIAL IV SCH ×3 (00:44→16:15)
[2020-08-15] MEDS: ACETAMINOPHEN IV (For NPO) 1,000 MG in EMPTY BAG 1 BAG IVPB SCH ×4 (01:55→19:07)
[2020-08-15 06:04] LABS: Glucose,Whole Blood 92 mg/dL (75-99)
[2020-08-15 06:19] LABS: Anisocytosis Slight; HCT 32.9 % (34.0-46.0); HGB 10.3 gm/dL (11.4-16.0); Hypochromasia Marked; MCH 29.4 pg (25.0-35.0); MCHC 31.4 g/dL (31.0-37.0); MCV 93.8 fL (80.0-100.0); RBC 3.51 m/uL (3.80-5.40); RDW 16.1 % (11.5-15.5)
[2020-08-15 06:31] LABS: African American GFR (CKD) >90 (>60 ml/min/1.73 sqM); Anion Gap 6 mmol/L; Blood Urea Nitrogen 22 mg/dL (7-17); Carbon Dioxide 15 mmol/L (22-30); Chloride 114 mmol/L (98-107); Glucose 89 mg/dL (74-99); Non-African American GFR(CKD) >90 (>60 ml/min/1.73 sqM); Potassium 3.8 mmol/L (3.5-5.1); Sodium 135 mmol/L (137-145)
[2020-08-15 06:39] LABS: Platelet Count 3 k/uL (150-450); WBC 0.3 k/uL (3.8-10.6)
[2020-08-15 06:42] LABS: Calcium 5.8 mg/dL (8.4-10.2)
[2020-08-15] MEDS ORDERED: NOREPINEPHRIN 4 MG-0.9% NS PMX 4 MG/250 ML ML IV ONE (07:15)
[2020-08-15] MEDS: NOREPINEPHRINE 4 MG in SODIUM CHLORIDE 0.9% 250 ML IV SCH (07:26)
[2020-08-15 07:30] LABS: Anisocytosis (M) Present
[2020-08-15 07:32] LABS: Poikilocytosis (M) Present
--- NOTE | 2020-08-15 07:39 | XR ---
EXAMINATION TYPE: XR chest 1V portable DATE OF EXAM: 08/15/2020 COMPARISON: 08/14/2020 INDICATION: Tube placement TECHNIQUE: Single frontal view of the chest is obtained. FINDINGS: The heart size is normal. The pulmonary vasculature is normal. Small right pleural effusion is present. Nasogastric tube transverses the thorax with tip in the left upper quadrant of the abdomen. Right ayesha tral venous catheter is present with the deep right atrium. Endotracheal tube tip is above the heraclio . IMPRESSION: 1. Stable right moderate pleural effusion. 2. Lines and catheters discussed above
[2020-08-15 07:53] LABS: ABG Base Excess -12.5 mmol/L; ABG HCO3 15 mmol/L (21-25); ABG Oxygen Saturation 95.2 % (94-97); ABG PCO2 38 mmHg (35-45); ABG PH 7.21 (7.35-7.45); ABG PO2 79 mmHg (83-108); ABG TCO2 17 mmol/L (19-24); Allen Test Performed? Yes
[2020-08-15] MEDS: IPRATROPIUM 0.5 MG/2.5 ML NEBU INHALATION SCH ×4 (08:04→20:14)
[2020-08-15] MEDS: CHLORHEXIDINE GLUCONATE 15 ML CUP MUCOUS MEM SCH ×2 (08:36→21:27)
[2020-08-15] MEDS: PANTOPRAZOLE 40 MG/10 ML VIAL IVP SCH ×2 (08:36→21:27)
[2020-08-15] MEDS: VALPROATE SODIUM 250 MG in SODIUM CHLORIDE 0.9% 100 ML IVPB SCH ×2 (08:37→10:32)
[2020-08-15] MEDS: PRIMIDONE 250 MG TAB PO SCH (08:37)
[2020-08-15] MEDS: SODIUM CHLORIDE 0.9% 150 ML with VASOPRESSIN 60 UNIT IV SCH ×4 (08:38→14:35)
[2020-08-15] MEDS ORDERED: SODIUM BICARB 8.4% 50 ML SYR (1 MEQ/ML) IV STA (10:20)
[2020-08-15 10:41] VITALS: BMI 24.3
[2020-08-15] MEDS: FILGRASTIM-SNDZ 480 MCG/0.8 ML SYRINGE SQ SCH (11:48)
[2020-08-15 11:52] LABS: Glucose,Whole Blood 87 mg/dL (75-99)
--- NOTE | 2020-08-15 11:59 | P.PN ---
Subjective Progress Note Date: 08/15/20 Principal diagnosis: Decreased oral intake, possible PEG tube placement The patient was seen and examined the ICU. He patient is still sedated and intubated. She has been started on yube feedings, 20 ml /hr. He is being followed by hematology for pancytopenia. 2 days labs include WBC 0.3, hemoglobin 10.3, hematocrit 32.9, platelets 3, plasma lactic acid 3.6. Platelets has been ordered. Patient may also be given IVIG. There is no reports of bleeding. Objective - Vital Signs Vital signs: Vital Signs Temp 97.7 F 08/15/20 08:00 Pulse 129 H 08/15/20 11:45 Resp 35 H 08/15/20 11:45 BP 92/63 08/15/20 11:45 Pulse Ox 95 08/15/20 11:45 Intake & Output 08/14/20 08/15/20 08/15/20 18:59 06:59 18:59 Intake Total 4203.183 3978.831 455 Output Total 250 365 130 Balance 7336.245 9075.831 325 Weight 69.7 kg 70.5 kg 70.5 kg Intake: IV 900 1100 375 0.9 600 900 375 ACETAMINOPHEN IV (For NPO 100 ) 1,000 mg In Empty Bag 1 bag @ 400 mls/hr IVPB Q6H [facility] Rx#:[id number] Dextrose 5%-0.45% NaCl 1, 300 000 ml @ 75 mls/hr IV . [id number] [facility] Rx#:[id number] Piperacillin-Tazobactam 3 100 .375 gm In Sodium Chloride 0.9% 100 ml @ 25 mls/hr IVPB Q8HR [facility] Rx# :[id number] Intake, IV Titration 333.506 332.831 Amount Norepinephrine 4 mg In 245.374 254 Sodium Chloride 0.9% 250 ml @ 0.04 MCG/KG/MIN 8. 626 mls/hr IV .Q24H [facility] Rx#:[id number] propofoL 1,000 mg In 88.132 78.831 Empty Bag 1 bag @ Titrate IV .Q0M [facility] Rx#: [id number] Oral 200 Tube Feeding 80 Output: Urine 250 365 130 Other: Voiding Method Indwelling Catheter Indwelling Catheter Indwelling Catheter ABP, PAP, CO, CI - Last Documented Arterial Blood Pressure 98/54 - Exam General appearance: The patient is dated and intubated. HET: Head is normocephalic and atraumatic. Conjunctiva pink. Sclera anicteric. Neck: Supple without lymphadenopathy. Abdomen: Soft, nontender, nondistended with bowel sounds. No guarding or rigidity. Extremities: Normal skin color and turgor. No pedal edema Neurological: Sedated and intubated. - Labs CBC & Chem 7: 08/15/20 05:55 08/15/20 05:55 Labs: Abnormal Lab Results - Last 24 Hours (Table) 08/13/20 08/13/20 08/14/20 Range/Units 13:07 13:07 11:52 WBC (3.8-10.6) k/uL RBC (3.80-5.40) m/uL Hgb (11.4-16.0) gm/dL Hct (34.0-46.0) % RDW (11.5-15.5) % Plt Count (150-450) k/uL APTT (22.0-30.0) sec ABG pH (7.35-7.45) ABG pO2 (83-108) mmHg ABG HCO3 (21-25) mmol/L ABG Total CO2 (19-24) mmol/L Sodium (137-145) mmol/L Chloride (98-107) mmol/L Carbon Dioxide (22-30) mmol/L BUN (7-17) mg/dL Creatinine (0.52-1.04) mg/dL POC Glucose (mg/dL) 138 H (75-99) mg/dL Plasma Lactic Acid Duy (0.7-2.0) mmol/L Calcium (8.4-10.2) mg/dL Ionized Calcium Vinny (4.5-5.3) mg/dL Albumin (PEP) 1.56 L (3.80-4.90) g/dL Dzfmg-4-Qduticyfd 0.41 H (0.10-0.40) g/dL Bzzsi-2-Wwyngbsdh 0.48 L (0.60-1.00) g/dL Beta Globulins 0.35 L (0.60-1.30) g/dL Gamma Globulins 0.30 L (0.70-1.50) g/dL IgG 340.0 L (700.0-1600.0) mg/dL IgM 22.8 L (40.0-280.0) mg/dL 08/14/20 08/14/20 08/14/20 Range/Units 12:10 12:10 18:45 WBC (3.8-10.6) k/uL RBC (3.80-5.40) m/uL Hgb (11.4-16.0) gm/dL Hct (34.0-46.0) % RDW (11.5-15.5) % Plt Count (150-450) k/uL APTT 41.5 H (22.0-30.0) sec ABG pH (7.35-7.45) ABG pO2 (83-108) mmHg ABG HCO3 (21-25) mmol/L ABG Total CO2 (19-24) mmol/L Sodium (137-145) mmol/L Chloride (98-107) mmol/L Carbon Dioxide (22-30) mmol/L BUN (7-17) mg/dL Creatinine (0.52-1.04) mg/dL POC Glucose (mg/dL) (75-99) mg/dL Plasma Lactic Acid Duy 3.4 H* 3.0 H* (0.7-2.0) mmol/L Calcium (8.4-10.2) mg/dL Ionized Calcium Vinny (4.5-5.3) mg/dL Albumin (PEP) (3.80-4.90) g/dL Phejf-6-Tudfdihaa (0.10-0.40) g/dL Hlgmt-0-Syjxkofzw (0.60-1.00) g/dL Beta Globulins (0.60-1.30) g/dL Gamma Globulins (0.70-1.50) g/dL IgG (700.0-1600.0) mg/dL IgM (40.0-280.0) mg/dL 08/15/20 08/15/20 08/15/20 Range/Units 01:20 05:55 05:55 WBC 0.3 L* (3.8-10.6) k/uL RBC 3.51 L (3.80-5.40) m/uL Hgb 10.3 L (11.4-16.0) gm/dL Hct 32.9 L (34.0-46.0) % RDW 16.1 H (11.5-15.5) % Plt Count 3 L* D (150-450) k/uL APTT (22.0-30.0) sec ABG pH (7.35-7.45) ABG pO2 (83-108) mmHg ABG HCO3 (21-25) mmol/L ABG Total CO2 (19-24) mmol/L Sodium 135 L (137-145) mmol/L Chloride 114 H (98-107) mmol/L Carbon Dioxide 15 L (22-30) mmol/L BUN 22 H (7-17) mg/dL Creatinine 0.42 L (0.52-1.04) mg/dL POC Glucose (mg/dL) (75-99) mg/dL Plasma Lactic Acid Duy 3.5 H* (0.7-2.0) mmol/L Calcium 5.8 L* (8.4-10.2) mg/dL Ionized Calcium Vinny (4.5-5.3) mg/dL Albumin (PEP) (3.80-4.90) g/dL Fcyyd-4-Kmssrliyj (0.10-0.40) g/dL Pdpai-8-Numynctcu (0.60-1.00) g/dL Beta Globulins (0.60-1.30) g/dL Gamma Globulins (0.70-1.50) g/dL IgG (700.0-1600.0) mg/dL IgM (40.0-280.0) mg/dL 08/15/20 08/15/20 08/15/20 Range/Units 06:52 06:52 07:48 WBC (3.8-10.6) k/uL RBC (3.80-5.40) m/uL Hgb (11.4-16.0) gm/dL Hct (34.0-46.0) % RDW (11.5-15.5) % Plt Count (150-450) k/uL APTT (22.0-30.0) sec ABG pH 7.21 L (7.35-7.45) ABG pO2 79 L (83-108) mmHg ABG HCO3 15 L (21-25) mmol/L ABG Total CO2 17 L (19-24) mmol/L Sodium (137-145) mmol/L Chloride (98-107) mmol/L Carbon Dioxide (22-30) mmol/L BUN (7-17) mg/dL Creatinine (0.52-1.04) mg/dL POC Glucose (mg/dL) (75-99) mg/dL Plasma Lactic Acid Duy 3.6 H* (0.7-2.0) mmol/L Calcium (8.4-10.2) mg/dL Ionized Calcium Vinny 4.1 L (4.5-5.3) mg/dL Albumin (PEP) (3.80-4.90) g/dL Lnnsf-8-Aznkbtvbw (0.10-0.40) g/dL Yedah-9-Beeyeybvl (0.60-1.00) g/dL Beta Globulins (0.60-1.30) g/dL Gamma Globulins (0.70-1.50) g/dL IgG (700.0-1600.0) mg/dL IgM (40.0-280.0) mg/dL Microbiology - Last 24 Hours (Table) 08/09/20 01:00 Blood Culture - Final Blood No Growth after 144 hours 08/14/20 06:22 Gram Stain - Preliminary Sputum Sputum Culture - Preliminary 08/13/20 13:07 Blood Culture - Preliminary Blood No Growth after 24 hours 08/13/20 12:24 Blood Culture - Preliminary Blood No Growth after 24 hours Assessment and Plan Assessment: 1. History of seizure disorder. The patient had a seizure episode and was transferred to the intensive care unit being monitored closely. The patient subsequently had a decline in status and was intubated and sedated. 2. Altered mental status 3. Hypotensive, requiring pressors 4. Small bowel ileus. Resolved 5. Poor oral intake/malnutrition. Recent modified barium swallow did not show any evidence of aspiration 6. History of anxiety, depression 7. Pancytopenia Plan: 1. Supportive care 2. Follow recommendations per intensivists 3. When patient becomes stabilized further discussion and consideration for EGD and PEG tube placement, she is currently not a surgical candidate due to pancytopenia and decline in status. 4. Abdominal x-ray reviewed, nonspecific abdomen 5. Agree with tube feeds, advance as tolerated We will follow with you closely. The impression and plan of care has been dictated as directed. Dr. K Tumma I performed a history and examination of this patient, discussed the same with the dictator. I agree with the dictator's note ,documented as a scribe. Any additional findings or plans will be noted.
--- NOTE | 2020-08-15 13:12 | P.PN ---
Subjective Progress Note Date: 08/15/20 Patient was seen for a follow-up. Patient continues to be intubated, severely encephalopathic, almost comatose. Patient is off sedation for 1 hour. Previously was on Diprivan 50 g overnight. Patient also on Levophed 0.6 g per kilogram per minute, or 45 g a minute. Patient is still intubated on a m echanical ventilator. No seizure activity noted. Objective - Vital Signs Vital signs: Vital Signs Temp 97.7 F 08/15/20 08:00 Pulse 129 H 08/15/20 11:45 Resp 35 H 08/15/20 11:45 BP 92/63 08/15/20 11:45 Pulse Ox 95 08/15/20 11:45 Intake & Output 08/14/20 08/15/20 08/15/20 18:59 06:59 18:59 Intake Total 5642.631 8259.831 455 Output Total 250 365 130 Balance 4225.343 9320.831 325 Weight 69.7 kg 70.5 kg 70.5 kg Intake: IV 900 1100 375 0.9 600 900 375 ACETAMINOPHEN IV (For NPO 100 ) 1,000 mg In Empty Bag 1 bag @ 400 mls/hr IVPB Q6H [facility] Rx#:[id number] Dextrose 5%-0.45% NaCl 1, 300 000 ml @ 75 mls/hr IV . [id number] [facility] Rx#:[id number] Piperacillin-Tazobactam 3 100 .375 gm In Sodium Chloride 0.9% 100 ml @ 25 mls/hr IVPB Q8HR [facility] Rx# :[id number] Intake, IV Titration 333.506 332.831 Amount Norepinephrine 4 mg In 245.374 254 Sodium Chloride 0.9% 250 ml @ 0.04 MCG/KG/MIN 8. 626 mls/hr IV .Q24H [facility] Rx#:[id number] propofoL 1,000 mg In 88.132 78.831 Empty Bag 1 bag @ Titrate IV .Q0M [facility] Rx#: [id number] Oral 200 Tube Feeding 80 Output: Urine 250 365 130 Other: Voiding Method Indwelling Catheter Indwelling Catheter Indwelling Catheter ABP, PAP, CO, CI - Last Documented Arterial Blood Pressure 98/54 - Exam Patient is intubated, off sedation for 1 hour. Patient's pupils are round and reacting. Oculocephalics are absent. Patient does not respond to calling her name or with painful stimuli. - Labs CBC & Chem 7: 08/15/20 05:55 08/15/20 05:55 Labs: Abnormal Lab Results - Last 24 Hours (Table) 08/13/20 08/14/20 08/14/20 Range/Units 13:07 12:10 18:45 WBC (3.8-10.6) k/uL RBC (3.80-5.40) m/uL Hgb (11.4-16.0) gm/dL Hct (34.0-46.0) % RDW (11.5-15.5) % Plt Count (150-450) k/uL APTT 41.5 H (22.0-30.0) sec ABG pH (7.35-7.45) ABG pO2 (83-108) mmHg ABG HCO3 (21-25) mmol/L ABG Total CO2 (19-24) mmol/L Sodium (137-145) mmol/L Chloride (98-107) mmol/L Carbon Dioxide (22-30) mmol/L BUN (7-17) mg/dL Creatinine (0.52-1.04) mg/dL Plasma Lactic Acid Duy 3.0 H* (0.7-2.0) mmol/L Calcium (8.4-10.2) mg/dL Ionized Calcium Vinny (4.5-5.3) mg/dL Albumin (PEP) 1.56 L (3.80-4.90) g/dL Rwxtx-2-Olinfifcp 0.41 H (0.10-0.40) g/dL Gmikx-6-Iplwknibd 0.48 L (0.60-1.00) g/dL Beta Globulins 0.35 L (0.60-1.30) g/dL Gamma Globulins 0.30 L (0.70-1.50) g/dL 08/15/20 08/15/20 08/15/20 Range/Units 01:20 05:55 05:55 WBC 0.3 L* (3.8-10.6) k/uL RBC 3.51 L (3.80-5.40) m/uL Hgb 10.3 L (11.4-16.0) gm/dL Hct 32.9 L (34.0-46.0) % RDW 16.1 H (11.5-15.5) % Plt Count 3 L* D (150-450) k/uL APTT (22.0-30.0) sec ABG pH (7.35-7.45) ABG pO2 (83-108) mmHg ABG HCO3 (21-25) mmol/L ABG Total CO2 (19-24) mmol/L Sodium 135 L (137-145) mmol/L Chloride 114 H (98-107) mmol/L Carbon Dioxide 15 L (22-30) mmol/L BUN 22 H (7-17) mg/dL Creatinine 0.42 L (0.52-1.04) mg/dL Plasma Lactic Acid Duy 3.5 H* (0.7-2.0) mmol/L Calcium 5.8 L* (8.4-10.2) mg/dL Ionized Calcium Vinny (4.5-5.3) mg/dL Albumin (PEP) (3.80-4.90) g/dL Vnzce-1-Fwmpulwvv (0.10-0.40) g/dL Flurt-5-Htvdpkgwd (0.60-1.00) g/dL Beta Globulins (0.60-1.30) g/dL Gamma Globulins (0.70-1.50) g/dL 08/15/20 08/15/20 08/15/20 Range/Units 06:52 06:52 07:48 WBC (3.8-10.6) k/uL RBC (3.80-5.40) m/uL Hgb (11.4-16.0) gm/dL Hct (34.0-46.0) % RDW (11.5-15.5) % Plt Count (150-450) k/uL APTT (22.0-30.0) sec ABG pH 7.21 L (7.35-7.45) ABG pO2 79 L (83-108) mmHg ABG HCO3 15 L (21-25) mmol/L ABG Total CO2 17 L (19-24) mmol/L Sodium (137-145) mmol/L Chloride (98-107) mmol/L Carbon Dioxide (22-30) mmol/L BUN (7-17) mg/dL Creatinine (0.52-1.04) mg/dL Plasma Lactic Acid Duy 3.6 H* (0.7-2.0) mmol/L Calcium (8.4-10.2) mg/dL Ionized Calcium Vinny 4.1 L (4.5-5.3) mg/dL Albumin (PEP) (3.80-4.90) g/dL Orqos-1-Yjnlqfzno (0.10-0.40) g/dL Nkexf-1-Nkcjuqdny (0.60-1.00) g/dL Beta Globulins (0.60-1.30) g/dL Gamma Globulins (0.70-1.50) g/dL Microbiology - Last 24 Hours (Table) 08/09/20 01:00 Blood Culture - Final Blood No Growth after 144 hours 08/14/20 06:22 Gram Stain - Preliminary Sputum Sputum Culture - Preliminary 08/13/20 13:07 Blood Culture - Preliminary Blood No Growth after 24 hours 08/13/20 12:24 Blood Culture - Preliminary Blood No Growth after 24 hours Assessment and Plan Assessment: * Acute severe metabolic encephalopathy due to sepsis. Patient has developed ventilator-dependent respiratory failure, comatose state. * Recurrent episodes of unresponsiveness with hypotension, likely sepsis. Seizures unlikely, as patient's seizures has been in remission for number of years. EEG did not reveal any epileptiform activity. * History of localization-related epilepsy, status post right temporal lobectomy in 1995. Seizures have been under remission since surgery. * Pancytopenia with Severe leukopenia 300 and thrombocytopenia with platelet count of 3000. Probably due to sepsis, doubt side effect of Depakote. TTP in the differential, but her renal and liver functions are normal, no fever and no evidence of schistocytes or target cells on peripheral smear. * Sepsis, small bowel ileus. * Major depressive disorder * Hypothyroidism with TSH 5.810. Plan: * Patient has developed severe sepsis, with pancytopenia. Depakote can be associated with thrombocytopenia, but not typically produces leukopenia. However because of gravity of concerns, at this point, I would agree stopping Depakote, and we will switch to Keppra 500 mg twice a day. Patient has been on Depakote for years, therefore less likely, but still worth a try. * EEG performed 08/13/2020 revealed mild background slowing, consistent with encephalopathy. It did not reveal any epileptiform activity. * Medical management as per IM/critical care and other specialties.
--- NOTE | 2020-08-15 13:32 | P.PN ---
Subjective Progress Note Date: 08/15/20 Principal diagnosis: Hypovolemic and possible septic shock. This is a 70-year-old female patient, quite pleasant yet hostile and angry towards her family members as the patient is living at home with her and son. She is a chronic smoker in she has underlying COPD. 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 The patient has been progressively getting worse in terms of her nutritional intake. Over the past 1 year, the patient has been having difficulties with dysphagia and keeping food material and. She states that she has been having average bowel movements, somewhat irregular without any bleeding. No abdominal distention. Apparently she's been losing weight. She has a visiting physician was recommended hospice care for her. She hasn't been showed that she would like to take that option at this point in time. Apparently her health has been gradually declining and she is currently down to 56 kg and her body mass index is at 19. She came into the ED as the patient became more lethargic and disoriented and the patient was found to have lactic acidosis with a plasma lactic acid level of 6.9 and she had a mild anion gap metabolic acidosis the bicarb level of 14 and an anion gap of 18. BUN was 37. Creatinine was 0.39. The patient's sodium level was at 1:30 with a potassium level of 6.2. Urinalysis showed +1 protein and +1 ketones on. No signs of any infection. The chest x-ray was normal. The patient came in to the ICU for severe metabolic acidosis and lactic acidosis. Note that she improved with fluid resuscitation and the patient lactic acid level has declined nicely. She is awake. She has some tremors yet she has never been diagnosed having Parkinson. This may be a component of benign essential tremors. She denies having any headaches. Mental status although seems to be appropriate and she is slow in answering questions. The patient is seen today 08/10/2020 and follow-up on the regular medical floor. No pulmonary complaints. Maintaining O2 saturations in the 90s on room air. She's afebrile. Hemodynamically stable. Blood culture reveals no growth to date. Urine culture pending. White count 5.0. Hemoglobin 13.4. Sodium 137. Potassium 3.6. Creatinine 0.33. Most recent lactic acidosis 2.0. Computed tomography scan of the chest abdomen pelvis did not reveal any significant findings other than mild colitis. The patient is seen today 08/13/2020. She had been stable out on the regular medical floor. Early this morning an A team was called due hypotension and hypoglycemia. She was transferred back to the intensive care unit. She is initially maintaining O2 saturations in the 90s on room air. She was afebrile. Thank you her blood pressure remains low. She is initiated on norepinephrine currently at 5 mcg/kg/m. Her lactic acid was explained 7. She received 4 L of fluid resuscitation. She is initiated on ceftriaxone. D545 at 75 ML's per hour. White count 1.0. Hemoglobin 11.1. Platelets 70,000. Sodium 129. Potassium 3.9. Bicarb 17. Creatinine 0.59. Valproic acid level 19.8. Patient was reevaluated today on 08/14/20, patient was admitted to the ICU yesterday, she was hypovolemic and hypotensive she was also hypoglycemic, and I have given the patient's significant amount of fluids upon arrival to the ICU, continued to remain hypotensive, and she decompensated early this morning, patient had to be intubated and she basically received a total of 8 L of fluids in 24 hours, remained basically all recorded, and hypotensive. She is now on mechanical ventilation, with assist control rate of 24 volume of 350 FiO2 of 70% and PEEP of 5. ABG showed a pO2 of 287 pCO2 of 44 pH of 7.27, hence FiO2 was decreased down to 50%. Drips-teague the patient is now on norepinephrine at 0.7 mcg/kg/m, and this is being titrated down once we cut down on propofol. She is on propofol at 30 mcg/kg/m. Patient remains on antibiotics in the form of Zosyn, the only culture that positive is a urine culture showing E. coli. Considering her hypotension, patient received Solu-Cortef, and I would continue Solu-Cortef, since she may have responded to the Solu-Cortef although her cortisol level was normal, remind you patient is chronically on Decadron at home. Chest x-ray showed evidence of mild fluid overload, and bibasilar atelectasis. Uric acid was 5.3 yesterday, and it is 3.4 today. Ionized calcium is on the low side today at 4.3. CBC showed leukopenia with WBC count of 0.4 hemoglobin is 11.1, platelets are 18,000. Significant drop over the last 2 days. Hence we will discontinue Lovenox. And considering her leukopenia, will initiate a hematology consultation. Reevaluated today on 08/15/20, patient remains in the ICU, intubated and mechanically ventilated, she is presently on assist control rate of 24, tidal volume of 350 FiO2 is 50% and PEEP of 5. Patient had an ABG showing significant metabolic acidosis her pO2 is 79 pCO2 of 38 pH of 7.21, patient continues to have lactic acidosis. Patient is on norepinephrine at 0.6 mcg/kg/m, she was on vasopressin last night to maintain adequate blood pressure. She is on propofol at 30 mcg/kg/m, and she is on IV fluid at 75 mL per hour utilizing 0.9 saline. Today the patient received 1 amp of bicarb and she placed on a bicarb drip her blood cultures are negative so far. Urine cultures are positive for E. coli and strep agalactiae. Sputum cultures are pending. Chest x-ray today showed a small right-sided pleural effusion, not significantly large to consider thoracentesis yet. Patient continues to have pancytopenia with WBC count of 0.3 hemoglobin is 10.3 platelets are 3000. Seen by hematology on consultation, and recommended holding Depakote. Neurology will be addressing the issue and see if there is any placement for Depakote as it may be causing bone marrow suppression. Objective - Vital Signs Vital signs: Vital Signs Temp 97.7 F 08/15/20 08:00 Pulse 129 H 08/15/20 11:45 Resp 35 H 08/15/20 11:45 BP 92/63 08/15/20 11:45 Pulse Ox 95 08/15/20 11:45 Intake & Output 08/14/20 08/15/20 08/15/20 18:59 06:59 18:59 Intake Total 0491.358 3137.831 455 Output Total 250 365 130 Balance 7354.122 7790.831 325 Weight 69.7 kg 70.5 kg 70.5 kg Intake: IV 900 1100 375 0.9 600 900 375 ACETAMINOPHEN IV (For NPO 100 ) 1,000 mg In Empty Bag 1 bag @ 400 mls/hr IVPB Q6H [facility]S INCLUDE 234 BEDS AT [facility] Rx#:[id number] Dextrose 5%-0.45% NaCl 1, 300 000 ml @ 75 mls/hr IV . [id number] COUNTS INCLUDE 234 BEDS AT THE [facility] Rx#:[id number] Piperacillin-Tazobactam 3 100 .375 gm In Sodium Chloride 0.9% 100 ml @ 25 mls/hr IVPB Q8HR COUNTS INCLUDE 234 BEDS AT THE [facility] Rx# :[id number] Intake, IV Titration 333.506 332.831 Amount Norepinephrine 4 mg In 245.374 254 Sodium Chloride 0.9% 250 ml @ 0.04 MCG/KG/MIN 8. 626 mls/hr IV .Q24H [facility] Rx#:[id number] propofoL 1,000 mg In 88.132 78.831 Empty Bag 1 bag @ Titrate IV .Q0M COUNTS INCLUDE 234 BEDS AT THE [facility] Rx#: [id number] Oral 200 Tube Feeding 80 Output: Urine 250 365 130 Other: Voiding Method Indwelling Catheter Indwelling Catheter Indwelling Catheter ABP, PAP, CO, CI - Last Documented Arterial Blood Pressure 98/54 - Exam General: 70-year-old female patient, intubated, mechanically ventilated, sedated, on propofol. We will hold propofol today and assess mental status. Derm: warm, dry, multiple areas of excoriation on her legs. Head: atraumatic, normocephalic, symmetric endotracheal tube and orogastric tube are intact. No neck masses, no JVD, no stridor. Eyes: EOMI, no lid lag, anicteric sclera Mouth: no lip lesion, mucus membranes moist Cardiovascular: Normal S1 and S2, no S3 gallop, no murmur. Lungs: Decreased breath sound bilaterally no crackles or rhonchi or wheezes. Abdominal: Soft nontender no megaly no rebound no guarding. Positive bowel sounds. Ext: No clubbing 1+ bipedal edema no cyanosis. Musculoskeletal: No deformities. Neuro: Could not be assessed, patient is on propofol. Psych: Not be assessed. - Labs CBC & Chem 7: 08/15/20 05:55 08/15/20 05:55 Labs: Abnormal Lab Results - Last 24 Hours (Table) 08/14/20 08/15/20 08/15/20 Range/Units 18:45 01:20 05:55 WBC 0.3 L* (3.8-10.6) k/uL RBC 3.51 L (3.80-5.40) m/uL Hgb 10.3 L (11.4-16.0) gm/dL Hct 32.9 L (34.0-46.0) % RDW 16.1 H (11.5-15.5) % Plt Count 3 L* D (150-450) k/uL ABG pH (7.35-7.45) ABG pO2 (83-108) mmHg ABG HCO3 (21-25) mmol/L ABG Total CO2 (19-24) mmol/L Sodium (137-145) mmol/L Chloride (98-107) mmol/L Carbon Dioxide (22-30) mmol/L BUN (7-17) mg/dL Creatinine (0.52-1.04) mg/dL Plasma Lactic Acid Duy 3.0 H* 3.5 H* (0.7-2.0) mmol/L Calcium (8.4-10.2) mg/dL Ionized Calcium Vinny (4.5-5.3) mg/dL 08/15/20 08/15/20 08/15/20 Range/Units 05:55 06:52 06:52 WBC (3.8-10.6) k/uL RBC (3.80-5.40) m/uL Hgb (11.4-16.0) gm/dL Hct (34.0-46.0) % RDW (11.5-15.5) % Plt Count (150-450) k/uL ABG pH (7.35-7.45) ABG pO2 (83-108) mmHg ABG HCO3 (21-25) mmol/L ABG Total CO2 (19-24) mmol/L Sodium 135 L (137-145) mmol/L Chloride 114 H (98-107) mmol/L Carbon Dioxide 15 L (22-30) mmol/L BUN 22 H (7-17) mg/dL Creatinine 0.42 L (0.52-1.04) mg/dL Plasma Lactic Acid Duy 3.6 H* (0.7-2.0) mmol/L Calcium 5.8 L* (8.4-10.2) mg/dL Ionized Calcium Vinny 4.1 L (4.5-5.3) mg/dL 08/15/20 Range/Units 07:48 WBC (3.8-10.6) k/uL RBC (3.80-5.40) m/uL Hgb (11.4-16.0) gm/dL Hct (34.0-46.0) % RDW (11.5-15.5) % Plt Count (150-450) k/uL ABG pH 7.21 L (7.35-7.45) ABG pO2 79 L (83-108) mmHg ABG HCO3 15 L (21-25) mmol/L ABG Total CO2 17 L (19-24) mmol/L Sodium (137-145) mmol/L Chloride (98-107) mmol/L Carbon Dioxide (22-30) mmol/L BUN (7-17) mg/dL Creatinine (0.52-1.04) mg/dL Plasma Lactic Acid Duy (0.7-2.0) mmol/L Calcium (8.4-10.2) mg/dL Ionized Calcium Vinny (4.5-5.3) mg/dL Microbiology - Last 24 Hours (Table) 08/09/20 01:00 Blood Culture - Final Blood No Growth after 144 hours 08/14/20 06:22 Gram Stain - Preliminary Sputum Sputum Culture - Preliminary 08/13/20 13:07 Blood Culture - Preliminary Blood No Growth after 24 hours 08/13/20 12:24 Blood Culture - Preliminary Blood No Growth after 24 hours Assessment and Plan Assessment: Impression: Acute hypoxic respiratory failure secondary to sepsis, and septic shock. Acute urinary tract infection secondary to E. coli and strep agalactiae Pancytopenia, could be related to sepsis, could also be related to Depakote, pr esently on hold. And neurology to address replacement for Depakote. Type 2 diabetes. History of hypertension. History of seizure disorder and previous frontal lobe resection. History of COPD currently inactive. History of degenerative joint disease. Recommendation: Continue ventilatory support. Continue hemodynamic support. Presently on norepinephrine at 0.6 mcg/kg/m, and vasopressin was used last night. Resume Solu-Cortef. We'll cut down the dose to 50 mg IV push every 8 hours. Continue to hold Lovenox because of her low platelets, Transfuse patient with platelets as she is having some mucosal bleeding from the mouth. Enteral feeding/enteral support. Continue Zosyn. Further cultures are pending including blood cultures and sputum cultures GI prophylaxis. Sodium bicarb drip for metabolic acidosis and lactic acidosis. Patient is obviously critically ill, critical care time is 36 minutes Time with Patient: Greater than 30
[2020-08-15] MEDS: DEXTROSE 5% IN WATER 1,000 ML with SODIUM BICARB (1 MEQ/ML) 150 ML IV SCH (14:16)
--- NOTE | 2020-08-15 14:27 | P.PN ---
Subjective Progress Note Date: 08/15/20 The patient is sedated on the vent. Mild oral bleeding noted by nursing. No other obvious bleeding. She has had temperature spikes with fever up to 102+. She remains tachycardic with increased respiratory rate. Objective - Vital Signs Vital signs: Vital Signs Temp 97.7 F 08/15/20 08:00 Pulse 129 H 08/15/20 11:45 Resp 35 H 08/15/20 11:45 BP 92/63 08/15/20 11:45 Pulse Ox 95 08/15/20 11:45 Intake & Output 08/14/20 08/15/20 08/15/20 18:59 06:59 18:59 Intake Total 0044.496 6476.831 480.3 Output Total 250 365 130 Balance 9934.319 2809.831 350.3 Weight 69.7 kg 70.5 kg 70.5 kg Intake: IV 900 1100 375 0.9 600 900 375 ACETAMINOPHEN IV (For NPO 100 ) 1,000 mg In Empty Bag 1 bag @ 400 mls/hr IVPB Q6H [facility] Rx#:[id number] Dextrose 5%-0.45% NaCl 1, 300 000 ml @ 75 mls/hr IV . [id number] [facility] Rx#:[id number] Piperacillin-Tazobactam 3 100 .375 gm In Sodium Chloride 0.9% 100 ml @ 25 mls/hr IVPB Q8HR [facility] Rx# :[id number] Intake, IV Titration 333.506 332.831 25.3 Amount Norepinephrine 32 mg In 25.3 Sodium Chloride 0.9% 218 ml @ 0.05 MCG/KG/MIN 1. 634 mls/hr IV .Q24H [facility] Rx#:[id number] Norepinephrine 4 mg In 245.374 254 Sodium Chloride 0.9% 250 ml @ 0.04 MCG/KG/MIN 8. 626 mls/hr IV .Q24H [facility] Rx#:[id number] propofoL 1,000 mg In 88.132 78.831 Empty Bag 1 bag @ Titrate IV .Q0M [facility] Rx#: [id number] Oral 200 Tube Feeding 80 Output: Urine 250 365 130 Other: Voiding Method Indwelling Catheter Indwelling Catheter Indwelling Catheter ABP, PAP, CO, CI - Last Documented Arterial Blood Pressure 98/54 - Constitutional Constitutional Comment(s): sedated, on vent General appearance: Present: no acute distress - Respiratory Respiratory: bilateral: CTA - Cardiovascular Rhythm: regular Heart sounds: normal: S1, S2 - Gastrointestinal General gastrointestinal: Present: decreased bowel sounds, soft - Integumentary Integumentary: Present: normal - Neurologic Neurologic Comment(s): sedated, on vent - Musculoskeletal Musculoskeletal: Present: generalized weakness - Psychiatric Psychiatric Comment(s): sedated , on vent - Labs CBC & Chem 7: 08/15/20 05:55 08/15/20 05:55 Labs: Abnormal Lab Results - Last 24 Hours (Table) 08/14/20 08/15/20 08/15/20 Range/Units 18:45 01:20 05:55 WBC 0.3 L* (3.8-10.6) k/uL RBC 3.51 L (3.80-5.40) m/uL Hgb 10.3 L (11.4-16.0) gm/dL Hct 32.9 L (34.0-46.0) % RDW 16.1 H (11.5-15.5) % Plt Count 3 L* D (150-450) k/uL ABG pH (7.35-7.45) ABG pO2 (83-108) mmHg ABG HCO3 (21-25) mmol/L ABG Total CO2 (19-24) mmol/L Sodium (137-145) mmol/L Chloride (98-107) mmol/L Carbon Dioxide (22-30) mmol/L BUN (7-17) mg/dL Creatinine (0.52-1.04) mg/dL Plasma Lactic Acid Duy 3.0 H* 3.5 H* (0.7-2.0) mmol/L Calcium (8.4-10.2) mg/dL Ionized Calcium Vinny (4.5-5.3) mg/dL 08/15/20 08/15/20 08/15/20 Range/Units 05:55 06:52 06:52 WBC (3.8-10.6) k/uL RBC (3.80-5.40) m/uL Hgb (11.4-16.0) gm/dL Hct (34.0-46.0) % RDW (11.5-15.5) % Plt Count (150-450) k/uL ABG pH (7.35-7.45) ABG pO2 (83-108) mmHg ABG HCO3 (21-25) mmol/L ABG Total CO2 (19-24) mmol/L Sodium 135 L (137-145) mmol/L Chloride 114 H (98-107) mmol/L Carbon Dioxide 15 L (22-30) mmol/L BUN 22 H (7-17) mg/dL Creatinine 0.42 L (0.52-1.04) mg/dL Plasma Lactic Acid Duy 3.6 H* (0.7-2.0) mmol/L Calcium 5.8 L* (8.4-10.2) mg/dL Ionized Calcium Vinny 4.1 L (4.5-5.3) mg/dL 08/15/20 Range/Units 07:48 WBC (3.8-10.6) k/uL RBC (3.80-5.40) m/uL Hgb (11.4-16.0) gm/dL Hct (34.0-46.0) % RDW (11.5-15.5) % Plt Count (150-450) k/uL ABG pH 7.21 L (7.35-7.45) ABG pO2 79 L (83-108) mmHg ABG HCO3 15 L (21-25) mmol/L ABG Total CO2 17 L (19-24) mmol/L Sodium (137-145) mmol/L Chloride (98-107) mmol/L Carbon Dioxide (22-30) mmol/L BUN (7-17) mg/dL Creatinine (0.52-1.04) mg/dL Plasma Lactic Acid Duy (0.7-2.0) mmol/L Calcium (8.4-10.2) mg/dL Ionized Calcium Vinny (4.5-5.3) mg/dL Microbiology - Last 24 Hours (Table) 08/09/20 01:00 Blood Culture - Final Blood No Growth after 144 hours 08/14/20 06:22 Gram Stain - Preliminary Sputum Sputum Culture - Preliminary 08/13/20 13:07 Blood Culture - Preliminary Blood No Growth after 24 hours 08/13/20 12:24 Blood Culture - Preliminary Blood No Growth after 24 hours Assessment and Plan (1) Pancytopenia Narrative/Plan: The patient has severe progressive pancytopenia, with lab work up negative so far. The pancytopenia has developed very acutely since admission. This argues against any major underlying bone marrow disease. - Clinically, therefore the most likely etiology is some underlying mild marrow compromise from malnutrition, with acute decreased due to marrow suppression and increased consumption from sepsis. - Recommend continued monitoring and supportive treatment to keep hemoglobin greater than 7 and platelets greater than 10. Dates were 3000 today and platelet transfusion will be ordered. - Continue G-CSF to WBC recovers Current Visit: Yes Status: Acute Priority: High Code(s): D61.818 - OTHER PANCYTOPENIA SNOMED Code(s): 191175395 (2) SIRS (systemic inflammatory response syndrome) Narrative/Plan: The patient has ongoing symptoms with respiratory failure, elevated heart rate and respiratory rate as well as fever. Urine culture was positive. The blood cultures have remained negative. Defer to the admitting service and critical ca re medicine for continued management. Current Visit: Yes Status: Acute Code(s): R65.10 - SIRS OF NON-INFECTIOUS ORIGIN W/O ACUTE ORGAN DYSFUNCTION SNOMED Code(s): 325401659
[2020-08-15 14:56] LABS: Glucose,Whole Blood 96 mg/dL (75-99)
[2020-08-15] MEDS ORDERED: NON FORMULARY DRUG IV SCH (15:00)
[2020-08-15 15:17] LABS: Partial Thromboplastin Time 38.8 sec (22.0-30.0); Prothrombin Time 10.1 sec (9.0-12.0)
[2020-08-15 16:25] LABS: ABG Base Excess -10.8 mmol/L; ABG HCO3 17 mmol/L (21-25); ABG Oxygen Saturation 93.9 % (94-97); ABG PCO2 41 mmHg (35-45); ABG PH 7.23 (7.35-7.45); ABG PO2 71 mmHg (83-108); ABG TCO2 18 mmol/L (19-24); Allen Test Performed? Yes
[2020-08-15] MEDS ORDERED: IMMUNE GLOBULIN (GAMMAGARD) 30 GM in EMPTY BAG 1 BAG IV ONE (17:00)
[2020-08-15 17:13] LABS: Glucose,Whole Blood 120 mg/dL (75-99)
[2020-08-15] MEDS: NOREPINEPHRINE 32 MG in SODIUM CHLORIDE 0.9% 218 ML IV SCH (17:39)
[2020-08-15] MEDS: LACTATED RINGERS 1,000 ML IV SCH ×2 (17:48→17:50)
--- NOTE | 2020-08-15 18:44 | P.PN ---
Progress Note - Text Progress Note Date: 08/15/20 Principal diagnosis: weakness History of presenting complaint: Patient is a 70-year-old female with past medical history of diabetes mellitus type 2, COPD, and tremor who was brought into the emergency room by family members due to lethargy and anorexia. Patient has been following with visiting physicians and underwent video fluoroscopy on 07/2520 for possible dysphagia however no dysphagia was noted exam. Apparently visiting physicians had one to discuss hospice care with the patient due to her overall functional decline. Yesterday she became more lethargic and disoriented and subsequently EMS was activated and the patient was brought to the hospital. On EMS arrival the patient was significantly hypotensive. On arrival to the ER she underwent an extensive evaluation. She was tachycardic with a pulse of 109 and blood pressure of 97/65. Initial laboratory analysis showed sodium 130, potassium 6.2, carbon dioxide 14, anion gap 18, BUN 37, creatinine 0.39, glucose 164, plasma lactic acid 6.9. Her total bilirubin was 1.7 with an AST of 50. Urinalysis showed 1+ protein 1+ ketones 1+ bilirubin and 36 hyalin casts. She was started on IV fluids. Chest x-ray was obtained which was normal. She was subsequently admitted to the ICU for severe metabolic acidosis. After admission she did express suicidal ideation. Suicide sitter was placed and psychiatry was consulted. She was recommended for sade psych when medically stable. She was unable to urinate and a joe was placed. She was noted to have vaginal discharge and was started on monastat. Her lactic acid cleared. She was not eating much. She was started on Remeron by psychiatry. She has already undergone a modified barium swallow study which did not demonstrate any signs of dysphasia. She continued to have low appetite and electrolyte disturbances which were replaced daily. She was started on marinol for appetite stimulation on 08/12. She also developed abdominal pain on 08/[address] abd and pelvis ordered to followup on mild colonic distension noted on last CT. Initially family had said they wanted to her to go home with hospice. We were adjusting medications to see if we could increase appetite and stabilize mood. Anand Walter NOTE: Anand walter called at 0800. Arrived to room to find patient unresponsive. O2 at 98%, BP 60/40, Strong pule that was regular. I ordered a second IV and then 2L IVF bolus. Patient with + Gag. She slow began to awaken. No tongue biting, +Joe, no loss of bowel. Per nursing no tonic-clonic movements prior to my arrival. PTs blood pressure began to increase to 85/56 and patient was awake and alert. She appeared back to baseline and was following commands. Patient became hypertensive at to be transferred ICU. Patient intubated. Azleg-KNP-ny the ventilator. FiO2 50% with PEEP of 5. IV drips include propofol and levo fed. Telemetry shows sinus rhythm. 2 feeds at 30 mL an hour. Sedated Review of systems cannot be done, patient intubated Active Medications Chlorhexidine Gluconate (Chlorhexidine Gluconate 15 Ml Cup) 15 ml MUCOUS MEM BID [facility] Last Admin: 08/15/20 08:36 Dose: 15 ml Documented by: Filgrastim-Sndz (Filgrastim-Sndz 480 Mcg/0.8 Ml Syringe) 480 mcg SQ DAILY [facility] Last Admin: 08/15/20 11:48 Dose: 480 mcg Documented by: Hydrocortisone Sodium Succinate (Hydrocortisone Succinate 100 Mg/2 Ml Vial) 100 mg IV Q8HR [facility] Last Admin: 08/15/20 16:15 Dose: 100 mg Documented by: Piperacillin Sod/Tazobactam (Sod 3.375 gm/ Sodium Chloride) 100 mls @ 25 mls/hr IVPB Q8HR [facility] Last Admin: 08/15/20 16:15 Dose: 25 mls/hr Documented by: Propofol 1,000 mg/ IV Solution 100 mls @ 0 mls/hr IV .Q0M [facility]; Protocol Last Admin: 08/15/20 17:19 Dose: 20 mcg/kg/min, 8.46 mls/hr Documented by: Vasopressin 60 unit/ Sodium (Chloride) 153 mls @ 4.59 mls/hr IV .Q24H [facility] Last Admin: 08/15/20 14:35 Dose: 4.59 mls/hr Documented by: Norepinephrine Bitartrate 32 (mg/ Sodium Chloride) 250 mls @ 1.634 mls/hr IV .Q24H [facility]; Protocol Last Titration: 08/15/20 18:12 Dose: 0.38 mcg/kg/min, 12.415 mls/hr Documented by: Acetaminophen 1,000 mg/ IV (Solution) 100 mls @ 400 mls/hr IVPB Q6H [facility] Stop: 08/15/20 19:14 Last Admin: 08/15/20 13:09 Dose: Not Given Documented by: Sodium Bicarbonate 150 ml/ (Dextrose/Water) 1,150 mls @ 75 mls/hr IV .[id number] [facility] Last Admin: 08/15/20 14:16 Dose: 75 mls/hr Documented by: Levetiracetam 500 mg/ Sodium (Chloride) 105 mls @ 400 mls/hr IVPB Q12HR [facility] Immune Globulin 30 gm/ IV (Solution) 300 mls @ 0 mls/hr IV .Q0M [facility]; Protocol Stop: 08/16/20 17:01 Insulin Aspart (Insulin Aspart (Novolog) 100 Unit/Ml Vial) 0 unit SQ 0000,0600,1200,1800 [facility]; Protocol Last Admin: 08/15/20 17:32 Dose: Not Given Documented by: Ipratropium [place] (Ipratropium 0.5 Mg/2.5 Ml Nebu) 0.5 mg INHALATION RT-QID [facility] Last Admin: 08/15/20 16:08 Dose: 0.5 mg Documented by: Mirtazapine (Mirtazapine 15 Mg Tab) 30 mg PO [facility] Last Admin: 08/14/20 21:49 Dose: 30 mg Documented by: Miscellaneous Information (Potassium Replacement Protocol 1 Each Misc) 1 each MISCELLANE DAILY PRN; Protocol PRN Reason: Per Protocol Naloxone HCl (Naloxone 0.4 Mg/Ml 1 Ml Vial) 0.2 mg IV Q2M PRN PRN Reason: Opioid Reversal Ondansetron HCl (Ondansetron 4 Mg/2 Ml Vial) 4 mg IVP Q6HR PRN PRN Reason: Nausea And Vomiting Last Admin: 08/09/20 09:55 Dose: 4 mg Documented by: Pantoprazole Sodium (Pantoprazole 40 Mg/10 Ml Vial) 40 mg IVP BID [facility] Last Admin: 08/15/20 08:36 Dose: 40 mg Documented by: Primidone (Primidone 250 Mg Tab) 250 mg PO DAILY [facility] Last Admin: 08/15/20 08:37 Dose: 250 mg Documented by: Quetiapine Fumarate (Quetiapine 25 Mg Tab) 25 mg PO HS [facility] Last Admin: 08/14/20 21:49 Dose: 25 mg Documented by: Vitals-99.3, 120, 25, 119/58, 94% on the ventilator General:-, appears older than stated age, thin cachexia, temporal wasting loss of buccal fat , intubated Derm: warm, dry, multiple areas of excoriation on her legs. Eyes: Pupils equal, conjunctiva normal Cardiovascular: S1S2 reg, no murmur, no edema Lungs: Decreased breath sounds, no rhonchi, no rales , Abdominal: soft, nontender , no guarding, no appreciable organomegaly Ext: + gross muscle atrophy, no edema, no contractures Psych: Unable to assess, patient intubated INVESTIGATIONS, reviewed in the clinical context: White count 0.3 hemoglobin 10.3 platelets 3 potassium 3.8 creatinine 0.42 bicarb 15, ionized calcium 4.1 lactic acid 3.6 Chest l-myl-zewmon right moderate pleural effusion Previous testing: Computed tomography scan of the brain-chronic ischemic [id number] EEG finding suggestive of toxic metabolic encephalopathy. No epileptiform activity Computed tomography scan of the abdomen-multiple fluid-filled loops of bowel Assessment and plan: Hypotension - suspect due to dehydration and decreased oral intake -Continue with IV fluid bolus Acute episode of delirium Pancytopenia -Suspect hypoproliferative disease secondary to decreased oral intake and vitamin deficiency Anorexia with severe protein calorie malnutrition and failure to thrive -Supplements - Plan will be for PEG tube once stable. - remeron initiated by saeid giles - Patient passed barrium swallow study as outpatient on 07/25/2020 - CT chest/abd pelvis negative for malignancy Hx of TBI with right temporal lobectomy - Out patient follow-up, suspect personality changes Medical debility Electrolyte derangement - replace and recheck Urinary retention - joe in place - nystatin Depression - remeron, seroquel, Diabetes mellitus type 2 -Sliding-scale insulin -diet controlled at home COPD without exacerbation - prn bronchodilators Asymptomiatic bacturia - no need for treatment Hyperkalemia, resolved Lactic acidosis suspect secondary to dehydration and starvation, resolved Hyponatremia secondary to dehydration, resolved Suicidal ideation, resolved Elevated bilirubin and AST, resolved -Acute hypoxic respiratory failure-on ventilator support-slow to respond Plan: Patient intubated. Critical. Remains on the ventilator. Current drips include propofol levo fed. Follow With casing flusher.
[2020-08-15 19:12] LABS: Anisocytosis Slight; HCT 27.7 % (34.0-46.0); Hypochromasia Marked; MCHC 30.9 g/dL (31.0-37.0); Mean Platelet Volume 8.6; RBC 2.95 m/uL (3.80-5.40); RDW 16.5 % (11.5-15.5)
[2020-08-15 19:15] LABS: Platelet Count 25 k/uL (150-450)
[2020-08-15 19:16] LABS: WBC 0.2 k/uL (3.8-10.6)
[2020-08-15] MEDS: levETIRAcetam IV 500 MG in SODIUM CHLORIDE 0.9% 100 ML IVPB SCH (21:27)
[2020-08-15] MEDS: QUEtiapine 25 MG TAB PO SCH (21:28)
[2020-08-15] MEDS: MIRTAZAPINE 15 MG TAB PO SCH (21:28)
--- NOTE | 2020-08-15 23:03 | P.CONS ---
History of Present Illness - Reason for Consult Consult date: 08/15/20 Septic shock Requesting physician: Francis Lawrence - Chief Complaint Generalized weakness in appetite x days - History of Present Illness Patient is a 70-year-old female who was brought into the ER by family about 5-6 days ago on 08/09/2020 for evaluation of generalized weakness poor appetite and no energy, patient was afebrile on admission to the hospital and did have a normal white count, patient did have a normal chest x-ray and normal UA she has been admitted hospital for further workup since then the patient did have worsening of her clinical condition and subsequently has to be admitted to the ICU because of hypotension and mental status changes patient is getting intubated because of worsening respiratory status and the patient did have a repeat UA done on the which was positive and subsequently grew E. coli and Streptococcus agalactiae, patient did have a CT of the chest abdomen pelvis on admission we did shows nonspecific mild chronic fluid distention mild mucosal enhancement, repeat CAT scan done 3 days later did show concern for possible ileus with multiple fluid-filled loops of bowel within the abdominal pelvis(s) the patient did have worsening respiratory status requiring intubation and also have significant pancytopenia patient did spike a fever today infections was consulted with concern for septic shock and the patient is currently requiring high-dose pressor support most of the information has been obtained from thorough review of the chart as the patient is currently intubated and unable to put any history family member available Review of Systems Positive points has been mentioned in HPI complete review could not be obtained because of his underlying mental status Past Medical History Past Medical History: COPD, Diabetes Mellitus, Hypertension, Seizure Disorder Additional Past Medical History / Comment(s): tremors, nausea vomiting post oral intake, weight loss #20 History of Any Multi-Drug Resistant Organisms: Unobtainable Past Surgical History: Section, Cholecystectomy Additional Past Surgical History / Comment(s): Right temporal lobectomy r/t seizures, skin cancer nose, carpal tunnel, right shoulder Smoking Status: Current every day smoker - Past Family History Son(s) Family Medical History: COPD Medications and Allergies Home Medications Medication Instructions Recorded Confirmed Type Aim Herbal Fiber Gel PO Q4HR PRN 08/09/20 History Ascorbic Acid [Vitamin C] 1,000 mg PO DAILY 08/09/20 08/09/20 History Biotin 10,000 W/Keratin 100 Mg 1 tab PO DAILY 08/09/20 08/09/20 History Clonazepam 0.5 Disintegrating 0.5 mg PO TID PRN 08/09/20 08/09/20 History Tablet Dexamethasone [Decadron] 4 mg PO QAM 08/09/20 08/09/20 History Divalproex [Depakote] 250 mg PO BID 08/09/20 08/09/20 History HYDROcodone/APAP 5-325MG [[place] 1 tab PO BID PRN 08/09/20 08/09/20 History 5-325] Melatonin 10 mg PO DAILY 08/09/20 08/09/20 History Ondansetron [Zofran] 4 mg PO BID-W/MEALS 08/09/20 08/09/20 History Pantoprazole [Protonix] 40 mg PO DAILY 08/09/20 08/09/20 History Primidone [Mysoline] 250 mg PO DAILY 08/09/20 08/09/20 History QUEtiapine [SEROquel] 50 mg PO HS 08/09/20 08/09/20 History Simethicone [Gas-X] tab PO BID PRN 08/09/20 History Tiotropium [place] [Spiriva] 1 cap INHALATION DAILY 08/09/20 08/09/20 History Vortioxetine Hydrobromide 20 mg PO DAILY 08/09/20 08/09/20 History [Trintellix] ramipriL [Ramipril] 2.5 mg PO DAILY 08/09/20 08/09/20 History traZODone HCL 50 mg PO HS 08/09/20 08/09/20 History Allergies Allergy/AdvReac Type Severity Reaction Status Date / Time No Known Allergies Allergy Verified 08/09/20 00:07 Physical Exam Vitals: Vital Signs Temp Pulse Resp BP Pulse Ox 08/15/20 20:31 110 H 08/15/20 20:14 110 H 08/15/20 19:00 112 H 31 H 101/61 95 08/15/20 18:00 120 H 40 H 106/69 97 08/15/20 17:30 99.4 F 132 H 19 105/65 94 L 08/15/20 17:20 99.1 F 130 H 38 H 120/60 95 08/15/20 17:00 130 H 41 H 114/70 94 L 08/15/20 16:40 99 F 130 H 25 H 134/62 94 L 08/15/20 16:16 130 H 08/15/20 16:10 99.3 F 129 H 40 H 119/58 94 L 08/15/20 16:08 128 H 08/15/20 16:00 99.6 F 130 H 31 H 106/58 94 L 08/15/20 15:00 130 H 36 H 94/63 95 08/15/20 14:00 130 H 40 H 94/63 95 08/15/20 13:00 131 H 40 H 94/61 95 08/15/20 12:00 98.8 F 130 H 37 H 92/63 95 08/15/20 11:45 129 H 35 H 92/63 95 08/15/20 11:44 128 H 08/15/20 11:35 131 H 08/15/20 11:30 130 H 38 H 92/63 94 L 08/15/20 11:15 130 H 37 H 92/63 08/15/20 11:00 130 H 39 H 101/61 08/15/20 10:45 130 H 38 H 101/61 93 L 08/15/20 10:30 129 H 30 H 101/61 08/15/20 10:15 130 H 7 L 101/61 90 L 08/15/20 10:00 130 H 17 106/89 08/15/20 09:45 129 H 19 106/89 08/15/20 09:30 129 H 31 H 106/89 08/15/20 09:15 128 H 26 H 106/89 08/15/20 09:00 125 H 30 H 99/66 99 08/15/20 08:45 120 H 30 H 99/66 8 L 08/15/20 08:30 117 H 24 99/66 98 08/15/20 08:25 123 H 08/15/20 08:15 118 H 25 H 99/66 98 08/15/20 08:05 120 H 08/15/20 08:00 97.7 F 120 H 24 102/63 97 08/15/20 07:45 121 H 25 H 102/63 95 08/15/20 07:30 121 H 37 H 96 08/15/20 07:15 123 H 38 H 96 08/15/20 07:00 124 H 37 H 96 08/15/20 06:45 124 H 37 H 92 L 08/15/20 06:30 124 H 36 H 94 L 08/15/20 06:15 99.5 F 124 H 38 H 91 L 08/15/20 06:00 125 H 38 H 92 L 08/15/20 05:45 128 H 38 H 91 L 08/15/20 05:30 131 H 40 H 90 L 08/15/20 05:15 134 H 37 H 95 08/15/20 05:00 137 H 33 H 95 08/15/20 04:45 134 H 41 H 92 L 08/15/20 04:30 102 F H 133 H 40 H 95 08/15/20 04:15 135 H 44 H 96 08/15/20 04:00 134 H 31 H 96 08/15/20 03:45 135 H 43 H 95 08/15/20 03:30 135 H 42 H 95 08/15/20 03:15 133 H 42 H 114/70 95 08/15/20 03:00 134 H 42 H 95 08/15/20 02:45 135 H 42 H 94 L 08/15/20 02:30 135 H 43 H 125/66 94 L 08/15/20 02:15 134 H 42 H 94 L 08/15/20 02:00 134 H 40 H 94 L 08/15/20 01:45 134 H 43 H 94 L 08/15/20 01:30 133 H 41 H 106/59 94 L 08/15/20 01:15 133 H 39 H 106/59 94 L 08/15/20 01:00 101.5 F H 146 H 37 H 93 L 08/15/20 00:45 140 H 41 H 94 L 08/15/20 00:30 138 H 37 H 94 L 08/15/20 00:15 141 H 29 H 93 L 08/15/20 00:00 141 H 35 H 93 L 08/14/20 23:45 133 H 35 H 91 L 08/14/20 23:35 133 H 36 H 91 L Intake and Output 08/15/20 08/15/20 08/16/20 14:59 22:59 06:59 Intake Total 233.768 6216.440 Output Total 280 195 Balance 643.539 8938.440 Intake: IV 600 1475 0.9 600 1000 Dextrose 5%-0.45% NaCl 1, 375 000 ml @ 75 mls/hr IV . [id number] [facility] Rx#:[id number] Piperacillin-Tazobactam 3 100 .375 gm In Sodium Chloride 0.9% 100 ml @ 25 mls/hr IVPB Q8HR [facility] Rx# :[id number] Intake, IV Titration 146.036 66.440 Amount Norepinephrine 32 mg In 46.036 66.440 Sodium Chloride 0.9% 218 ml @ 0.05 MCG/KG/MIN 1. 634 mls/hr IV .Q24H [facility] Rx#:[id number] propofoL 1,000 mg In 100 Empty Bag 1 bag @ Titrate IV .Q0M [facility] Rx#: [id number] Tube Feeding 200 208 Blood Product 312 Platelet Pheresis Acda2 312 Unit [id number] Other 30 Output: Urine 280 195 Other: Voiding Method Indwelling Catheter Indwelling Catheter # Voids 0 # Bowel Movements 1 Weight 70.5 kg ABP, PAP, CO, CI - Last 8 Hours Arterial Blood Pressure 110/54 Arterial Blood Pressure 121/56 Arterial Blood Pressure 126/60 Arterial Blood Pressure 123/60 GENERAL DESCRIPTION: Elderly female intubated on the vent. No tachypnea or accessory muscle of respiration use. HEENT: Shows Pallor , no scleral icterus. Oral mucous membrane is dry. Patient is orally intubated NECK: Trachea central, no thyromegaly. LUNGS: Unlabored breathing. Clear to auscultation anteriorly. No wheeze or crackle. HEART: S1, S2, regular rate and rhythm. No loud murmur ABDOMEN: Soft, no distention, no organomegaly EXTREMITIES: No edema of feet. SKIN: No rash, no masses palpable. NEUROLOGICAL: The patient is sedated on the vent. Results CBC & Chem 7: 08/15/20 18:50 08/15/20 05:55 Labs: Abnormal Lab Results - Last 24 Hours (Table) 08/15/20 08/15/20 08/15/20 Range/Units 01:20 05:55 05:55 WBC 0.3 L* (3.8-10.6) k/uL RBC 3.51 L (3.80-5.40) m/uL Hgb 10.3 L (11.4-16.0) gm/dL Hct 32.9 L (34.0-46.0) % MCHC (31.0-37.0) g/dL RDW 16.1 H (11.5-15.5) % Plt Count 3 L* D (150-450) k/uL APTT (22.0-30.0) sec Fibrinogen (200-500) mg/dL ABG pH (7.35-7.45) ABG pO2 (83-108) mmHg ABG HCO3 (21-25) mmol/L ABG Total CO2 (19-24) mmol/L ABG O2 Saturation (94-97) % Sodium 135 L (137-145) mmol/L Chloride 114 H (98-107) mmol/L Carbon Dioxide 15 L (22-30) mmol/L BUN 22 H (7-17) mg/dL Creatinine 0.42 L (0.52-1.04) mg/dL POC Glucose (mg/dL) (75-99) mg/dL Plasma Lactic Acid Duy 3.5 H* (0.7-2.0) mmol/L Calcium 5.8 L* (8.4-10.2) mg/dL Ionized Calcium Vinny (4.5-5.3) mg/dL 08/15/20 08/15/20 08/15/20 Range/Units 06:52 06:52 07:48 WBC (3.8-10.6) k/uL RBC (3.80-5.40) m/uL Hgb (11.4-16.0) gm/dL Hct (34.0-46.0) % MCHC (31.0-37.0) g/dL RDW (11.5-15.5) % Plt Count (150-450) k/uL APTT (22.0-30.0) sec Fibrinogen (200-500) mg/dL ABG pH 7.21 L (7.35-7.45) ABG pO2 79 L (83-108) mmHg ABG HCO3 15 L (21-25) mmol/L ABG Total CO2 17 L (19-24) mmol/L ABG O2 Saturation (94-97) % Sodium (137-145) mmol/L Chloride (98-107) mmol/L Carbon Dioxide (22-30) mmol/L BUN (7-17) mg/dL Creatinine (0.52-1.04) mg/dL POC Glucose (mg/dL) (75-99) mg/dL Plasma Lactic Acid Duy 3.6 H* (0.7-2.0) mmol/L Calcium (8.4-10.2) mg/dL Ionized Calcium Vinny 4.1 L (4.5-5.3) mg/dL 08/15/20 08/15/20 08/15/20 Range/Units 14:55 14:55 16:22 WBC (3.8-10.6) k/uL RBC (3.80-5.40) m/uL Hgb (11.4-16.0) gm/dL Hct (34.0-46.0) % MCHC (31.0-37.0) g/dL RDW (11.5-15.5) % Plt Count (150-450) k/uL APTT 38.8 H (22.0-30.0) sec Fibrinogen 506 H (200-500) mg/dL ABG pH 7.23 L (7.35-7.45) ABG pO2 71 L (83-108) mmHg ABG HCO3 17 L (21-25) mmol/L ABG Total CO2 18 L (19-24) mmol/L ABG O2 Saturation 93.9 L (94-97) % Sodium (137-145) mmol/L Chloride (98-107) mmol/L Carbon Dioxide (22-30) mmol/L BUN (7-17) mg/dL Creatinine (0.52-1.04) mg/dL POC Glucose (mg/dL) (75-99) mg/dL Plasma Lactic Acid Duy 4.0 H* (0.7-2.0) mmol/L Calcium (8.4-10.2) mg/dL Ionized Calcium Vinny (4.5-5.3) mg/dL 08/15/20 08/15/20 08/15/20 Range/Units 17:11 18:50 18:50 WBC 0.2 L* (3.8-10.6) k/uL RBC 2.95 L (3.80-5.40) m/uL Hgb 8.6 L D (11.4-16.0) gm/dL Hct 27.7 L (34.0-46.0) % MCHC 30.9 L (31.0-37.0) g/dL RDW 16.5 H (11.5-15.5) % Plt Count 25 L D (150-450) k/uL APTT (22.0-30.0) sec Fibrinogen (200-500) mg/dL ABG pH (7.35-7.45) ABG pO2 (83-108) mmHg ABG HCO3 (21-25) mmol/L ABG Total CO2 (19-24) mmol/L ABG O2 Saturation (94-97) % Sodium (137-145) mmol/L Chloride (98-107) mmol/L Carbon Dioxide (22-30) mmol/L BUN (7-17) mg/dL Creatinine (0.52-1.04) mg/dL POC Glucose (mg/dL) 120 H (75-99) mg/dL Plasma Lactic Acid Duy 4.0 H* (0.7-2.0) mmol/L Calcium (8.4-10.2) mg/dL Ionized Calcium Vinny (4.5-5.3) mg/dL 08/15/20 Range/Units 21:58 WBC (3.8-10.6) k/uL RBC (3.80-5.40) m/uL Hgb (11.4-16.0) gm/dL Hct (34.0-46.0) % MCHC (31.0-37.0) g/dL RDW (11.5-15.5) % Plt Count (150-450) k/uL APTT (22.0-30.0) sec Fibrinogen (200-500) mg/dL ABG pH (7.35-7.45) ABG pO2 (83-108) mmHg ABG HCO3 (21-25) mmol/L ABG Total CO2 (19-24) mmol/L ABG O2 Saturation (94-97) % Sodium (137-145) mmol/L Chloride (98-107) mmol/L Carbon Dioxide (22-30) mmol/L BUN (7-17) mg/dL Creatinine (0.52-1.04) mg/dL POC Glucose (mg/dL) (75-99) mg/dL Plasma Lactic Acid Duy 3.5 H* (0.7-2.0) mmol/L Calcium (8.4-10.2) mg/dL Ionized Calcium Vinny (4.5-5.3) mg/dL Microbiology - Last 24 Hours (Table) 08/13/20 13:07 Blood Culture - Preliminary Blood No Growth after 48 hours 08/14/20 06:22 Gram Stain - Preliminary Sputum Sputum Culture - Preliminary Gram Neg Bacilli 08/13/20 12:24 Blood Culture - Preliminary Blood No Growth after 48 hours 08/09/20 01:00 Blood Culture - Final Blood No Growth after 144 hours Assessment and Plan Assessment: 1- patient with sepsis/septic shock in this patient who did have a fever and leukopenia hypertension requiring high-dose pressor support source is possibly abdominal plus minus a component of aspiration pneumonia in this patient presented to hospital with decreased appetite and weakness initial CAT scan that shows question of ileus with repeat CAT scan did show ileus afterwards the patient did have worsening respiratory status requiring intubation and concern for possible aspiration pneumonitis annually to cover for enteric gram-negative with a sputum culture and gram-negative bacilli 2- E. coli urinary tract infection (1) Septic shock Current Visit: Yes Status: Acute Code(s): A41.9 - SEPSIS, UNSPECIFIED ORGANISM; R65.21 - SEVERE SEPSIS WITH SEPTIC SHOCK SNOMED Code(s): 93784705 (2) Aspiration pneumonia Current Visit: Yes Status: Acute Code(s): J69.0 - PNEUMONITIS DUE TO INHALATION OF FOOD AND VOMIT SNOMED Code(s): 653398559 (3) E. coli urinary tract infection Current Visit: Yes Status: Acute Code(s): N39.0 - URINARY TRACT INFECTION, SITE NOT SPECIFIED; B96.20 - UNSP ESCHERICHIA COLI THE CAUSE OF DISEASES CLASSD [facility] SNOMED Code(s): 422704478 Plan: 1- Zosyn 3.375 g every 8 hours 2-IV fluids We will follow on clinical condition and cultures to further adjust medication if needed Thank you for this consultation will follow this patient with you Time with Patient: Greater than 30
[2020-08-15 23:06] LABS: HGB 8.6 gm/dL (11.4-16.0)
[2020-08-15 23:34] LABS: Glucose,Whole Blood 154 mg/dL (75-99)
[2020-08-16] MEDS: INSULIN ASPART (NovoLOG) 100 UNIT/ML VIAL SQ SCH ×4 (00:09→16:59)
[2020-08-16] MEDS: PIPERACILLIN-TAZOBACTAM 3.375 GM in SODIUM CHLORIDE 0.9% 100 ML IVPB SCH ×3 (00:10→15:29)
[2020-08-16] MEDS: HYDROCORTISONE SUCCINATE 100 MG/2 ML VIAL IV SCH ×3 (00:10→15:28)
[2020-08-16] MEDS: SODIUM CHLORIDE 0.9% 150 ML with VASOPRESSIN 60 UNIT IV SCH ×2 (05:23)
[2020-08-16] MEDS: DEXTROSE 5% IN WATER 1,000 ML with SODIUM BICARB (1 MEQ/ML) 150 ML IV SCH ×2 (05:25→15:47)
[2020-08-16 05:42] LABS: Glucose,Whole Blood 162 mg/dL (75-99)
[2020-08-16 06:08] LABS: Glucose,Whole Blood 178 mg/dL (75-99)
[2020-08-16 06:20] LABS: Anisocytosis Slight; Basophils % (A) 3 %; Eosinophils % (A) 7 %; HCT 27.1 % (34.0-46.0); HGB 8.5 gm/dL (11.4-16.0); Hypochromasia Moderate; Lymphocytes # (A) 0.1 k/uL (1.0-4.8); Lymphocytes % (A) 53 %; MCH 29.3 pg (25.0-35.0); MCHC 31.5 g/dL (31.0-37.0); MCV 92.8 fL (80.0-100.0); Mean Platelet Volume 7.8; Monocytes % (A) 9 %; Neutrophils % (A) 28 %; RBC 2.92 m/uL (3.80-5.40); RDW 16.4 % (11.5-15.5)
[2020-08-16 06:22] LABS: Platelet Count 6 k/uL (150-450); WBC 0.2 k/uL (3.8-10.6)
[2020-08-16 06:23] LABS: Neutrophils # (A) 0.1 k/uL (1.3-7.7)
[2020-08-16 06:47] LABS: Ionized Calcium 4.1 mg/dL (4.5-5.3)
[2020-08-16 06:55] LABS: ALT 18 U/L (4-34); AST 45 U/L (14-36); African American GFR (CKD) >90 (>60 ml/min/1.73 sqM); Albumin 1.6 g/dL (3.5-5.0); Alkaline Phosphatase 93 U/L (38-126); Anion Gap 5 mmol/L; Blood Urea Nitrogen 28 mg/dL (7-17); Carbon Dioxide 21 mmol/L (22-30); Chloride 110 mmol/L (98-107); Glucose 145 mg/dL (74-99); Magnesium 1.7 mg/dL (1.6-2.3); Non-African American GFR(CKD) >90 (>60 ml/min/1.73 sqM); Phosphorus 2.9 mg/dL (2.5-4.5); Potassium 3.1 mmol/L (3.5-5.1); Sodium 136 mmol/L (137-145); Total Bilirubin 0.9 mg/dL (0.2-1.3); Total Protein 4.2 g/dL (6.3-8.2)
[2020-08-16 07:07] LABS: Calcium 5.8 mg/dL (8.4-10.2)
--- NOTE | 2020-08-16 07:15 | XR ---
EXAMINATION TYPE: XR chest 1V portable DATE OF EXAM: 08/16/2020 COMPARISON: 08/15/2020 HISTORY: Shortness of breath TECHNIQUE: Single frontal view of the chest is obtained. FINDINGS: Bilateral infiltrate and pleural effusion. Diffuse interstitial pattern. ET, NG tube and c entral line stable. No pneumothorax. Heart size stable. IMPRESSION: 1. Correlate for CHF. Underlying pneumonia excluded.
[2020-08-16 07:37] LABS: ABG Base Excess -4.2 mmol/L; ABG HCO3 22 mmol/L (21-25); ABG Oxygen Saturation 96.8 % (94-97); ABG PCO2 44 mmHg (35-45); ABG PH 7.31 (7.35-7.45); ABG PO2 85 mmHg (83-108); ABG TCO2 23 mmol/L (19-24); Allen Test Performed? Yes
[2020-08-16] MEDS: IPRATROPIUM 0.5 MG/2.5 ML NEBU INHALATION SCH ×4 (07:40→20:06)
[2020-08-16] MEDS: POTASSIUM BICARBONATE/CIT AC 20 MEQ TABLET.EFF NG-TUBE SCH ×2 (08:25→08:58)
[2020-08-16] MEDS: MAGNESIUM SULFATE-D5W PMX 1 GM in DEXTROSE/WATER 1 100ML.BAG IVPB SCH ×2 (08:56→10:04)
[2020-08-16] MEDS: PRIMIDONE 250 MG TAB PO SCH (08:57)
[2020-08-16] MEDS: FILGRASTIM-SNDZ 480 MCG/0.8 ML SYRINGE SQ SCH (08:57)
[2020-08-16] MEDS: CHLORHEXIDINE GLUCONATE 15 ML CUP MUCOUS MEM SCH (08:58)
[2020-08-16] MEDS: levETIRAcetam IV 500 MG in SODIUM CHLORIDE 0.9% 100 ML IVPB SCH (09:01)
[2020-08-16] MEDS: PANTOPRAZOLE 40 MG/10 ML VIAL IVP SCH (09:01)
[2020-08-16] MEDS: NOREPINEPHRINE 32 MG in SODIUM CHLORIDE 0.9% 218 ML IV SCH (10:01)
[2020-08-16 10:19] VITALS: TEMP 97.7
[2020-08-16 11:11] LABS: Glucose,Whole Blood 186 mg/dL (75-99)
--- NOTE | 2020-08-16 12:17 | PN ---
PROGRESS NOTE DATE OF SERVICE: 08/16/2020 Patient is a 70-year-old pleasant white female who remains on the vent in the intensive care unit on pressors. She had an OG tube in place and was started on feeding 2 days ago. However, as per the nursing staff, she developed some emesis yesterday and OG tube was connected to suction and there was approximately 500 mL of food that was aspirated. The OG tube is on hold and it is connected to low intermittent suction. No acute events noted overnight. PHYSICAL EXAMINATION: GENERAL: She remains on the vent sedated. VITAL SIGNS: Show blood pressure of 92/58, pulse rate 104, temperature 98. HEENT: Examination unremarkable. Conjunctivae are pink. Sclerae anicteric. NECK: No JVD or lymph node enlargement. CHEST: Clear to auscultation. ABDOMEN: Soft, it was slightly distended. It was tympanic. EXTREMITIES: No pedal edema. NEURO: She is sedated on the vent. LABS: From today WBC 0.2, hemoglobin 8.5, platelets 6000. BUN 28, creatinine 2.48. AST and ALT are normal. Lactic acid 3.0. IMPRESSION: 1. Sepsis with septic shock. Presently remains on the vent, intubated, mechanically ventilated and on broad-spectrum antibiotics. Infectious Disease following the patient closely. 2. Severe pancytopenia. Oncology is following. The bilirubin is more reactive rather than bone marrow pathology. Further workup is pending. 3. Abdominal distention with possible ileus. The patient was having OG tube feeds for the last 2 days, however developed vomiting and currently the tube feeds are on hold and is connected to NG suction. Approximately 500 cc was aspirated in the last 12 hours, most likely related to ileus from ongoing sepsis. 4. Urinary tract infection. RECOMMENDATIONS: 1. Continue broad-spectrum antibiotics. 2. Continue to hold on the tube feeds for now. 3. We will obtain abdominal x-rays tomorrow and then decide if we have to resume tube feeds at this point. 4. We will hold off on PEG tube placement because overall grave prognosis. Thank you for this consultation. We will follow with you closely. MMODL / IJN: [id number] /
--- NOTE | 2020-08-16 13:17 | PN ---
PROGRESS NOTE DATE OF SERVICE: 08/16/2020 REASON FOR FOLLOWUP: Sepsis and pneumonia. INTERVAL HISTORY: Patient is currently afebrile. The patient is still requiring high-dose pressor support to support her blood pressure. FiO2 is currently down to 45%. No significant purulent secretion through the ET or any other changes reported by nursing staff. PHYSICAL EXAMINATION: Blood pressure is 131/61 with a pulse of 97, temperature of 97.7. She is 96% on 45% FiO2. General description is an elderly female intubated on the vent. Respiratory system: Unlabored breathing, decreased breath sounds at the base. No wheeze. Heart S1, S2. Regular rate and rhythm. Abdomen soft, no tenderness. Extremities: No edema of the feet. LABS: Hemoglobin is 8.5, white count 0.2, BUN of 28, creatinine 0.48. Sputum with Pseudomonas. Urine with E coli and Streptococcus. DIAGNOSTIC IMPRESSION AND PLAN: Patient with sepsis/septic shock with concern for possible pneumonia, likely aspiration etiology. Patient is covered with Zosyn, that should cover Pseudomonas. and will monitor clinical course closely. Continue supportive care. MMODL / IJN: [id number] / DANITZA
[2020-08-16] MEDS ORDERED: LORazepam 2 MG/ML INJ IV PRN (13:28)
[2020-08-16 13:38] VITALS: BP 99/67; PULSE 101; RESP 31
[2020-08-16] MEDS: MORPHINE SULFATE 4 MG/ML SYRINGE IV PRN ×3 (13:48→18:39)
[2020-08-16] MEDS ORDERED: MORPHINE SULFATE (100 MG/2 ML) 100 MG in SODIUM CHLORIDE 0.9% 100 ML IV SCH (14:00)
--- NOTE | 2020-08-16 14:02 | P.PN ---
Subjective Progress Note Date: 08/16/20 Principal diagnosis: Hypovolemic and possible septic shock. This is a 70-year-old female patient, quite pleasant yet hostile and angry towards her family members as the patient is living at home with her and son. She is a chronic smoker in she has underlying COPD. 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 The patient has been progressively getting worse in terms of her nutritional intake. Over the past 1 year, the patient has been having difficulties with dysphagia and keeping food material and. She states that she has been having average bowel movements, somewhat irregular without any bleeding. No abdominal distention. Apparently she's been losing weight. She has a visiting physician was recommended hospice care for her. She hasn't been showed that she would like to take that option at this point in time. Apparently her health has been gradually declining and she is currently down to 56 kg and her body mass index is at 19. She came into the ED as the patient became more lethargic and disoriented and the patient was found to have lactic acidosis with a plasma lactic acid level of 6.9 and she had a mild anion gap metabolic acidosis the bicarb level of 14 and an anion gap of 18. BUN was 37. Creatinine was 0.39. The patient's sodium level was at 1:30 with a potassium level of 6.2. Urinalysis showed +1 protein and +1 ketones on. No signs of any infection. The chest x-ray was normal. The patient came in to the ICU for severe metabolic acidosis and lactic acidosis. Note that she improved with fluid resuscitation and the patient lactic acid level has declined nicely. She is awake. She has some tremors yet she has never been diagnosed having Parkinson. This may be a component of benign essential tremors. She denies having any headaches. Mental status although seems to be appropriate and she is slow in answering questions. The patient is seen today 08/10/2020 and follow-up on the regular medical floor. No pulmonary complaints. Maintaining O2 saturations in the 90s on room air. She's afebrile. Hemodynamically stable. Blood culture reveals no growth to date. Urine culture pending. White count 5.0. Hemoglobin 13.4. Sodium 137. Potassium 3.6. Creatinine 0.33. Most recent lactic acidosis 2.0. Computed tomography scan of the chest abdomen pelvis did not reveal any significant findings other than mild colitis. The patient is seen today 08/13/2020. She had been stable out on the regular medical floor. Early this morning an A team was called due hypotension and hypoglycemia. She was transferred back to the intensive care unit. She is initially maintaining O2 saturations in the 90s on room air. She was afebrile. Thank you her blood pressure remains low. She is initiated on norepinephrine currently at 5 mcg/kg/m. Her lactic acid was explained 7. She received 4 L of fluid resuscitation. She is initiated on ceftriaxone. D545 at 75 ML's per hour. White count 1.0. Hemoglobin 11.1. Platelets 70,000. Sodium 129. Potassium 3.9. Bicarb 17. Creatinine 0.59. Valproic acid level 19.8. Patient was reevaluated today on 08/14/20, patient was admitted to the ICU yesterday, she was hypovolemic and hypotensive she was also hypoglycemic, and I have given the patient's significant amount of fluids upon arrival to the ICU, continued to remain hypotensive, and she decompensated early this morning, patient had to be intubated and she basically received a total of 8 L of fluids in 24 hours, remained basically all recorded, and hypotensive. She is now on mechanical ventilation, with assist control rate of 24 volume of 350 FiO2 of 70% and PEEP of 5. ABG showed a pO2 of 287 pCO2 of 44 pH of 7.27, hence FiO2 was decreased down to 50%. Drips-teague the patient is now on norepinephrine at 0.7 mcg/kg/m, and this is being titrated down once we cut down on propofol. She is on propofol at 30 mcg/kg/m. Patient remains on antibiotics in the form of Zosyn, the only culture that positive is a urine culture showing E. coli. Considering her hypotension, patient received Solu-Cortef, and I would continue Solu-Cortef, since she may have responded to the Solu-Cortef although her cortisol level was normal, remind you patient is chronically on Decadron at home. Chest x-ray showed evidence of mild fluid overload, and bibasilar atelectasis. Uric acid was 5.3 yesterday, and it is 3.4 today. Ionized calcium is on the low side today at 4.3. CBC showed leukopenia with WBC count of 0.4 hemoglobin is 11.1, platelets are 18,000. Significant drop over the last 2 days. Hence we will discontinue Lovenox. And considering her leukopenia, will initiate a hematology consultation. Reevaluated today on 08/15/20, patient remains in the ICU, intubated and mechanically ventilated, she is presently on assist control rate of 24, tidal volume of 350 FiO2 is 50% and PEEP of 5. Patient had an ABG showing significant metabolic acidosis her pO2 is 79 pCO2 of 38 pH of 7.21, patient continues to have lactic acidosis. Patient is on norepinephrine at 0.6 mcg/kg/m, she was on vasopressin last night to maintain adequate blood pressure. She is on propofol at 30 mcg/kg/m, and she is on IV fluid at 75 mL per hour utilizing 0.9 saline. Today the patient received 1 amp of bicarb and she placed on a bicarb drip her blood cultures are negative so far. Urine cultures are positive for E. coli and strep agalactiae. Sputum cultures are pending. Chest x-ray today showed a small right-sided pleural effusion, not significantly large to consider thoracentesis yet. Patient continues to have pancytopenia with WBC count of 0.3 hemoglobin is 10.3 platelets are 3000. Seen by hematology on consultation, and recommended holding Depakote. Neurology will be addressing the issue and see if there is any placement for Depakote as it may be causing bone marrow suppression. Patient was reevaluated today on 08/16/20, patient continues to do poorly, remains intubated and mechanically ventilated. Remains hemodynamically unstab le, requiring norepinephrine at 0.25 mcg/kg/m, she is also on vasopressin at 0.03. Patient is also on bicarb at 75 mL/h, propofol at 20 mcg/kg/minute. Patient had a significant episode of emesis of her enteral feeding, and now she has a nasogastric tube on suction. Her lactic acid is 3.0 today, WBC count remains low at 0.2, continues to have low platelets, low WBC count, and low hemoglobin. Patient is receiving IVIG. Her ventilator settings are assist control rate of 24 and I cut it down to 25 volume is 350 I considered up to 400 FiO2 is 50%, down to 45% and her PEEP is at 5. ABG today showed a pO2 of 85 pCO2 of 44 pH of 7.31. Patient remains sedated, and yesterday off sedation she was extremely restless and agitated uncomfortable on mechanical ventilation asynchronous, and she had to be sedated. Could never fully assess mental status off propofol because of extreme agitation. Chest x-ray continues to show atelectasis and mild to moderate right-sided pleural effusion. Surprisingly her renal profile remains normal. Potassium is 3.1 bicarb is 21. Lactic acid went as low as 2.7 this morning. Patient has received multiple fluid boluses over the last 48 hours. I was later notified about the patient having atrial fibrillation with RVR, and I recommended amiodarone, however the nurse discussed her condition with the who made the patient comfort care measures Objective - Vital Signs Vital signs: Vital Signs Temp 97.7 F 08/16/20 12:00 Pulse 101 H 08/16/20 13:00 Resp 31 H 08/16/20 13:00 BP 99/67 08/16/20 13:00 Pulse Ox 93 L 08/16/20 13:00 Intake & Output 08/15/20 08/16/20 08/16/20 18:59 06:59 18:59 Intake Total 3037.476 6907.250 7155.274 Output Total 475 610 580 Balance 2562.476 623.151 594.274 Weight 70.5 kg 80.6 kg Intake: IV 2075 1025 872 0.9 1600 72 Dextrose 5% in Water 1, 825 400 000 ml @ 50 mls/hr IV . Q23H [facility] with Sodium Bicarb (1 Meq/ml) 150 ml Rx#:[id number] Dextrose 5%-0.45% NaCl 1, 375 000 ml @ 75 mls/hr IV . [id number] [facility] Rx#:[id number] Magnesium Sulfate-D5w Pmx 200 1 gm In Dextrose/Water 1 100ml.bag @ 100 mls/hr IVPB Q1H [facility] Rx#: [id number] Piperacillin-Tazobactam 3 100 100 100 .375 gm In Sodium Chloride 0.9% 100 ml @ 25 mls/hr IVPB Q8HR [facility] Rx# :[id number] levETIRAcetam IV 500 mg 100 100 In Sodium Chloride 0.9% 100 ml @ 400 mls/hr IVPB Q12HR [facility] Rx#:[id number] Intake, IV Titration 212.476 86.151 252.274 Amount Norepinephrine 32 mg In 112.476 177.414 Sodium Chloride 0.9% 218 ml @ 0.05 MCG/KG/MIN 1. 634 mls/hr IV .Q24H [facility] Rx#:[id number] propofoL 1,000 mg In 100 86.151 74.860 Empty Bag 1 bag @ Titrate IV .Q0M [facility] Rx#: [id number] Oral 50 Tube Feeding 408 92 0 Blood Product 312 Platelet Pheresis Acda2 312 Unit [id number] Other 30 30 Output: Urine 475 610 580 Other: Voiding Method Indwelling Catheter Indwelling Catheter Indwelling Catheter # Voids 0 0 # Bowel Movements 1 1 1 ABP, PAP, CO, CI - Last Documented Arterial Blood Pressure 117/49 - Exam General: 70-year-old female patient, intubated, mechanically ventilated, sedated, on propofol. Derm: warm, dry, multiple areas of excoriation on her legs. Head: atraumatic, normocephalic, symmetric endotracheal tube and orogastric tube are intact. No neck masses, no JVD, no stridor. Eyes: EOMI, no lid lag, anicteric sclera Mouth: no lip lesion, mucus membranes moist Cardiovascular: Normal S1 and S2, no S3 gallop, no murmur. Lungs: Decreased breath sound bilaterally no crackles or rhonchi or wheezes. Abdominal: Soft nontender no megaly no rebound no guarding. Positive bowel sounds. Ext: No clubbing 1+ bipedal edema no cyanosis. Musculoskeletal: No deformities. Neuro: Could not be assessed, patient is on propofol. Psych: Unable to assess - Labs CBC & Chem 7: 08/16/20 05:20 08/16/20 05:20 Labs: Abnormal Lab Results - Last 24 Hours (Table) 08/15/20 08/15/20 08/15/20 Range/Units 14:55 14:55 16:22 WBC (3.8-10.6) k/uL RBC (3.80-5.40) m/uL Hgb (11.4-16.0) gm/dL Hct (34.0-46.0) % MCHC (31.0-37.0) g/dL RDW (11.5-15.5) % Plt Count (150-450) k/uL Neutrophils # (1.3-7.7) k/uL Lymphocytes # (1.0-4.8) k/uL APTT 38.8 H (22.0-30.0) sec Fibrinogen 506 H (200-500) mg/dL ABG pH 7.23 L (7.35-7.45) ABG pO2 71 L (83-108) mmHg ABG HCO3 17 L (21-25) mmol/L ABG Total CO2 18 L (19-24) mmol/L ABG O2 Saturation 93.9 L (94-97) % Sodium (137-145) mmol/L Potassium (3.5-5.1) mmol/L Chloride (98-107) mmol/L Carbon Dioxide (22-30) mmol/L BUN (7-17) mg/dL Creatinine (0.52-1.04) mg/dL Glucose (74-99) mg/dL POC Glucose (mg/dL) (75-99) mg/dL Plasma Lactic Acid Duy 4.0 H* (0.7-2.0) mmol/L Calcium (8.4-10.2) mg/dL Ionized Calcium Vinny (4.5-5.3) mg/dL AST (14-36) U/L Total Protein (6.3-8.2) g/dL Albumin (3.5-5.0) g/dL 08/15/20 08/15/20 08/15/20 Range/Units 17:11 18:50 18:50 WBC 0.2 L* (3.8-10.6) k/uL RBC 2.95 L (3.80-5.40) m/uL Hgb 8.6 L D (11.4-16.0) gm/dL Hct 27.7 L (34.0-46.0) % MCHC 30.9 L (31.0-37.0) g/dL RDW 16.5 H (11.5-15.5) % Plt Count 25 L D (150-450) k/uL Neutrophils # (1.3-7.7) k/uL Lymphocytes # (1.0-4.8) k/uL APTT (22.0-30.0) sec Fibrinogen (200-500) mg/dL ABG pH (7.35-7.45) ABG pO2 (83-108) mmHg ABG HCO3 (21-25) mmol/L ABG Total CO2 (19-24) mmol/L ABG O2 Saturation (94-97) % Sodium (137-145) mmol/L Potassium (3.5-5.1) mmol/L Chloride (98-107) mmol/L Carbon Dioxide (22-30) mmol/L BUN (7-17) mg/dL Creatinine (0.52-1.04) mg/dL Glucose (74-99) mg/dL POC Glucose (mg/dL) 120 H (75-99) mg/dL Plasma Lactic Acid Duy 4.0 H* (0.7-2.0) mmol/L Calcium (8.4-10.2) mg/dL Ionized Calcium Vinny (4.5-5.3) mg/dL AST (14-36) U/L Total Protein (6.3-8.2) g/dL Albumin (3.5-5.0) g/dL 08/15/20 08/15/20 08/16/20 Range/Units 21:58 23:32 05:20 WBC 0.2 L* (3.8-10.6) k/uL RBC 2.92 L (3.80-5.40) m/uL Hgb 8.5 L (11.4-16.0) gm/dL Hct 27.1 L (34.0-46.0) % MCHC (31.0-37.0) g/dL RDW 16.4 H (11.5-15.5) % Plt Count 6 L* D (150-450) k/uL Neutrophils # 0.1 L* (1.3-7.7) k/uL Lymphocytes # 0.1 L (1.0-4.8) k/uL APTT (22.0-30.0) sec Fibrinogen (200-500) mg/dL ABG pH (7.35-7.45) ABG pO2 (83-108) mmHg ABG HCO3 (21-25) mmol/L ABG Total CO2 (19-24) mmol/L ABG O2 Saturation (94-97) % Sodium (137-145) mmol/L Potassium (3.5-5.1) mmol/L Chloride (98-107) mmol/L Carbon Dioxide (22-30) mmol/L BUN (7-17) mg/dL Creatinine (0.52-1.04) mg/dL Glucose (74-99) mg/dL POC Glucose (mg/dL) 154 H (75-99) mg/dL Plasma Lactic Acid Duy 3.5 H* (0.7-2.0) mmol/L Calcium (8.4-10.2) mg/dL Ionized Calcium Vinny (4.5-5.3) mg/dL AST (14-36) U/L Total Protein (6.3-8.2) g/dL Albumin (3.5-5.0) g/dL 08/16/20 08/16/20 08/16/20 Range/Units 05:20 05:20 05:30 WBC (3.8-10.6) k/uL RBC (3.80-5.40) m/uL Hgb (11.4-16.0) gm/dL Hct (34.0-46.0) % MCHC (31.0-37.0) g/dL RDW (11.5-15.5) % Plt Count (150-450) k/uL Neutrophils # (1.3-7.7) k/uL Lymphocytes # (1.0-4.8) k/uL APTT (22.0-30.0) sec Fibrinogen (200-500) mg/dL ABG pH (7.35-7.45) ABG pO2 (83-108) mmHg ABG HCO3 (21-25) mmol/L ABG Total CO2 (19-24) mmol/L ABG O2 Saturation (94-97) % Sodium 136 L (137-145) mmol/L Potassium 3.1 L (3.5-5.1) mmol/L Chloride 110 H (98-107) mmol/L Carbon Dioxide 21 L (22-30) mmol/L BUN 28 H (7-17) mg/dL Creatinine 0.48 L (0.52-1.04) mg/dL Glucose 145 H (74-99) mg/dL POC Glucose (mg/dL) 162 H (75-99) mg/dL Plasma Lactic Acid Duy 3.0 H* (0.7-2.0) mmol/L Calcium 5.8 L* (8.4-10.2) mg/dL Ionized Calcium Vinny 4.1 L (4.5-5.3) mg/dL AST 45 H (14-36) U/L Total Protein 4.2 L (6.3-8.2) g/dL Albumin 1.6 L (3.5-5.0) g/dL 08/16/20 08/16/20 08/16/20 Range/Units 06:07 07:32 11:10 WBC (3.8-10.6) k/uL RBC (3.80-5.40) m/uL Hgb (11.4-16.0) gm/dL Hct (34.0-46.0) % MCHC (31.0-37.0) g/dL RDW (11.5-15.5) % Plt Count (150-450) k/uL Neutrophils # (1.3-7.7) k/uL Lymphocytes # (1.0-4.8) k/uL APTT (22.0-30.0) sec Fibrinogen (200-500) mg/dL ABG pH 7.31 L (7.35-7.45) ABG pO2 (83-108) mmHg ABG HCO3 (21-25) mmol/L ABG Total CO2 (19-24) mmol/L ABG O2 Saturation (94-97) % Sodium (137-145) mmol/L Potassium (3.5-5.1) mmol/L Chloride (98-107) mmol/L Carbon Dioxide (22-30) mmol/L BUN (7-17) mg/dL Creatinine (0.52-1.04) mg/dL Glucose (74-99) mg/dL POC Glucose (mg/dL) 178 H 186 H (75-99) mg/dL Plasma Lactic Acid Duy (0.7-2.0) mmol/L Calcium (8.4-10.2) mg/dL Ionized Calcium Vinny (4.5-5.3) mg/dL AST (14-36) U/L Total Protein (6.3-8.2) g/dL Albumin (3.5-5.0) g/dL 08/16/20 Range/Units 11:12 WBC (3.8-10.6) k/uL RBC (3.80-5.40) m/uL Hgb (11.4-16.0) gm/dL Hct (34.0-46.0) % MCHC (31.0-37.0) g/dL RDW (11.5-15.5) % Plt Count (150-450) k/uL Neutrophils # (1.3-7.7) k/uL Lymphocytes # (1.0-4.8) k/uL APTT (22.0-30.0) sec Fibrinogen (200-500) mg/dL ABG pH (7.35-7.45) ABG pO2 (83-108) mmHg ABG HCO3 (21-25) mmol/L ABG Total CO2 (19-24) mmol/L ABG O2 Saturation (94-97) % Sodium (137-145) mmol/L Potassium (3.5-5.1) mmol/L Chloride (98-107) mmol/L Carbon Dioxide (22-30) mmol/L BUN (7-17) mg/dL Creatinine (0.52-1.04) mg/dL Glucose (74-99) mg/dL POC Glucose (mg/dL) (75-99) mg/dL Plasma Lactic Acid Duy 2.7 H* (0.7-2.0) mmol/L Calcium (8.4-10.2) mg/dL Ionized Calcium Vinny (4.5-5.3) mg/dL AST (14-36) U/L Total Protein (6.3-8.2) g/dL Albumin (3.5-5.0) g/dL Microbiology - Last 24 Hours (Table) 08/14/20 06:22 Gram Stain - Final Sputum Sputum Culture - Final Pseudomonas aeruginosa 08/13/20 13:07 Blood Culture - Preliminary Blood No Growth after 48 hours 08/13/20 12:24 Blood Culture - Preliminary Blood No Growth after 48 hours Assessment and Plan Assessment: Impression: Acute hypoxic respiratory failure secondary to sepsis, and septic shock. Acute urinary tract infection secondary to E. coli and strep agalactiae Pancytopenia, could be related to sepsis, could also be related to Depakote Type 2 diabetes. History of hypertension. History of seizure disorder and previous frontal lobe resection. History of COPD currently inactive. History of degenerative joint disease. Recommendation: Continue ventilatory support. Continue hemodynamic support. Continue norepinephrine and vasopressin. Continue Solu-Cortef. Continue to hold Lovenox because of her low platelets, Transfuse with platelets and blood accordingly. Enteral feeding/enteral support. Continue Zosyn. Further cultures are pending including blood cultures and sputum cultures GI prophylaxis. Any sodium bicarb drip. Patient is obviously critically ill, critical care time is 33minutes As I was finishing this dictation, I was notified by the nurse that her made the patient comfort care measures, and I think that is quite reasonable since the patient is failure to thrive, and prognosis is extremely poor and guarded. We'll proceed with comfort care measures as per 's wishes. Time with Patient: Greater than 30
[2020-08-16] MEDS ORDERED: IMMUNE GLOBULIN (GAMMAGARD) 30 GM in EMPTY BAG 1 BAG IV ONE (17:00)
--- NOTE | 2020-08-16 20:05 | P.DS ---
Providers Date of admission: 08/09/20 01:45 Expected date of discharge: 08/16/20 Attending physician: Jeff Da Silva Consults: 08/09/20 04:38 Consult Physician Urgent Consulting Provider: Apollo English Consult Reason/Comments: Depression with suicidal ideation Do you want consulting provider notified?: Yes 08/09/20 07:08 Consult Physician Stat Consulting Provider: Davonte Erazo Consult Reason/Comments: ICU management, lactic acidosis Do you want consulting provider notified?: Already Contacted 08/13/20 07:29 Consult Physician Routine Consulting Provider: Fani Giron Consult Reason/Comments: abdomianl pain, decreased appetitie Do you want consulting provider notified?: Yes 08/13/20 07:30 Consult Physician Routine Consulting Provider: Wilbert Morales Consult Reason/Comments: pancytopenia Do you want consulting provider notified?: Yes 08/13/20 08:35 Consult Physician Routine Consulting Provider: Alize Almanzar Consult Reason/Comments: Seizure Do you want consulting provider notified?: Yes 08/13/20 10:14 Consult Physician Routine Consulting Provider: Francis Lawrence Consult Reason/Comments: hypotension Do you want consulting provider notified?: Yes 08/14/20 16:09 Consult Physician Routine Consulting Provider: Wilbert Morales Consult Reason/Comments: Leukopenia and thrombocytopenia Do you want consulting provider notified?: Yes 08/15/20 10:24 Consult Physician Routine Consulting Provider: Patrick Rivas Consult Reason/Comments: septic shock Do you want consulting provider notified?: Yes Primary care physician: [facility] Course: Principal diagnosis: weakness History of presenting complaint: Patient is a 70-year-old female with past medical history of diabetes mellitus type 2, COPD, and tremor who was brought into the emergency room by family members due to lethargy and anorexia. Patient has been following with visiting physicians and underwent video fluoroscopy on 07/2520 for possible dysphagia h owever no dysphagia was noted exam. Apparently visiting physicians had one to discuss hospice care with the patient due to her overall functional decline. Yesterday she became more lethargic and disoriented and subsequently EMS was activated and the patient was brought to the hospital. On EMS arrival the patient was significantly hypotensive. On arrival to the ER she underwent an extensive evaluation. She was tachycardic with a pulse of 109 and blood pressure of 97/65. Initial laboratory analysis showed sodium 130, potassium 6.2, carbon dioxide 14, anion gap 18, BUN 37, creatinine 0.39, glucose 164, plasma lactic acid 6.9. Her total bilirubin was 1.7 with an AST of 50. Urinalysis showed 1+ protein 1+ ketones 1+ bilirubin and 36 hyalin casts. She was started on IV fluids. Chest x-ray was obtained which was normal. She was subsequently admitted to the ICU for severe metabolic acidosis. After admission she did express suicidal ideation. Suicide sitter was placed and psychiatry was consulted. She was recommended for sade psych when medically stable. She was unable to urinate and a joe was placed. She was noted to have vaginal discharge and was started on monastat. Her lactic acid cleared. She was not eating much. She was started on Remeron by psychiatry. She has already undergone a modified barium swallow study which did not demonstrate any signs of dysphasia. She continued to have low appetite and electrolyte disturbances which were replaced daily. She was started on marinol for appetite stimulation on 08/12. She also developed abdominal pain on 08/[address] abd and pelvis ordered to followup on mild colonic distension noted on last CT. Initially family had said they wanted to her to go home with hospice. We were adjusting medications to see if we could increase appetite and stabilize mood. Anand Walter NOTE: Anand walter called at 0800. Arrived to room to find patient unresponsive. O2 at 98%, BP 60/40, Strong pule that was regular. I ordered a second IV and then 2L IVF bolus. Patient with + Gag. She slow began to awaken. No tongue biting, +Joe, no loss of bowel. Per nursing no tonic-clonic movements prior to my arrival. PTs blood pressure began to increase to 85/56 and patient was awake and alert. She appeared back to baseline and was following commands. Patient became hypotensive at to be transferred ICU. Patient intubated. Patient continued to do poorly and ICU. Not with any improvement. Requiring many strips. [id number] the patient is on. On the ventilator. FiO2 45 and a PEEP of 5. Drips include norepinephrine, vasopressin, propofol. Telemetry sinus rhythm. Family at the bedside. They decided to proceed with comfort measures. This was initiated. Late in the day patient . Review of systems cannot be done, patient intubated Consultants: Dr. Lawrence -Dr. Julio Cesar Giron from GI Dr. Rivas from ID Dr. Morales from oncology Dr. Galeano from neurology Vitals-97.7, 97, 28, 130/61, 96% on the ventilator General:-, appears older than stated age, thin cachexia, temporal wasting loss of buccal fat , intubated Derm: warm, dry, multiple areas of excoriation on her legs. Eyes: Pupils equal, conjunctiva normal Cardiovascular: S1S2 reg, no murmur, no edema Lungs: Decreased breath sounds, no rhonchi, no rales , Abdominal: soft, nontender , no guarding, no appreciable organomegaly Ext: + gross muscle atrophy, no edema, no contractures Psych: Unable to assess, patient intubated INVESTIGATIONS, reviewed in the clinical context: White count 0.2 hemoglobin 8.5 platelets 6 potassium 3.1 creatinine 0.48 Chest [id number] right moderate pleural effusion Previous testing: Computed tomography scan of the brain-chronic ischemic [id number] EEG finding suggestive of toxic metabolic encephalopathy. No epileptiform a ctivity Computed tomography scan of the abdomen-multiple fluid-filled loops of bowel Assessment and plan: -Hypotensive shock due to fluid loss -Acute episode of delirium -Pancytopenia-Suspect hypoproliferative disease secondary to decreased oral intake and vitamin deficiency - Anorexia with severe protein calorie malnutrition and failure to thrive -Hx of TBI with right temporal lobectomy -Medical debility -Electrolyte derangement -Urinary retention -Depression Diabetes mellitus type 2 COPD without exacerbation Asymptomiatic bacturia Hyperkalemia, resolved Lactic acidosis suspect secondary to dehydration and starvation, resolved Hyponatremia secondary to dehydration, resolved Suicidal ideation, resolved Elevated bilirubin and AST, resolved -Acute hypoxic respiratory failure-on ventilator support-slow to respond Disposition: Patient Plan - Discharge Summary Discharge Rx Participant: No New Discharge Prescriptions: No Action Divalproex [Depakote] 250 mg PO BID ramipriL [Ramipril] 2.5 mg PO DAILY Primidone [Mysoline] 250 mg PO DAILY Vortioxetine Hydrobromide [Trintellix] 20 mg PO DAILY Pantoprazole [Protonix] 40 mg PO DAILY traZODone HCL 50 mg PO HS QUEtiapine [SEROquel] 50 mg PO HS Tiotropium [place] [Spiriva] 1 cap INHALATION DAILY Biotin 10,000 W/Keratin 100 Mg 1 tab PO DAILY Clonazepam 0.5 Disintegrating Tablet 0.5 mg PO TID PRN PRN Reason: Anxiety Dexamethasone [Decadron] 4 mg PO QAM Ondansetron [Zofran] 4 mg PO BID-W/MEALS HYDROcodone/APAP 5-325MG [[place] 5-325] 1 tab PO BID PRN PRN Reason: back pain Ascorbic Acid [Vitamin C] 1,000 mg PO DAILY Melatonin 10 mg PO DAILY Aim Herbal Fiber Gel PO Q4HR PRN PRN Reason: Constipation Simethicone [Gas-X] tab PO BID PRN PRN Reason: Abdominal Distention Discharge Medication List Aim Herbal Fiber Gel PO Q4HR PRN 08/09/20 [History] Ascorbic Acid [Vitamin C] 1,000 mg PO DAILY 08/09/20 [History] Biotin 10,000 W/Keratin 100 Mg 1 tab PO DAILY 08/09/20 [History] Clonazepam 0.5 Disintegrating Tablet 0.5 mg PO TID PRN 08/09/20 [History] Dexamethasone [Decadron] 4 mg PO QAM 08/09/20 [History] Divalproex [Depakote] 250 mg PO BID 08/09/20 [History] HYDROcodone/APAP 5-325MG [[place] 5-325] 1 tab PO BID PRN 08/09/20 [History] Melatonin 10 mg PO DAILY 08/09/20 [History] Ondansetron [Zofran] 4 mg PO BID-W/MEALS 08/09/20 [History] Pantoprazole [Protonix] 40 mg PO DAILY 08/09/20 [History] Primidone [Mysoline] 250 mg PO DAILY 08/09/20 [History] QUEtiapine [SEROquel] 50 mg PO HS 08/09/20 [History] Simethicone [Gas-X] tab PO BID PRN 08/09/20 [History] Tiotropium [place] [Spiriva] 1 cap INHALATION DAILY 08/09/20 [History] Vortioxetine Hydrobromide [Trintellix] 20 mg PO DAILY 08/09/20 [History] ramipriL [Ramipril] 2.5 mg PO DAILY 08/09/20 [History] traZODone HCL 50 mg PO HS 08/09/20 [History] Follow up Appointment(s)/Referral(s): None,Stated [REFERRING] - 1-2 days
[2020-08-18 09:31] LABS: Methylmalonic Acid 0.17 umol/L (<0.40)
[2020-08-19 06:26] LABS: Vit B1(Thiamine) <10 ug/L (38-122)
[2020-08-20 07:16] LABS: Vit B1(Thiamine) <10 ug/L (38-122)
== END 2020-08-16 23:47 | disposition expired | DRG 640 ==
LOC: EC → 3SCARD 01:45 → 2SICU 07:16 → 6NMEDSUR 13:42 → 2SICU 08-13 10:56
PROVIDERS: ADMIT Hospitalist; ATTEND Hospitalist
PROC: 4A133J1 Monitoring of Arterial Pulse, Peripheral, Percutaneous Approach (ICD-10-PCS; 2020-08-13)
PROC: 02H633Z Insertion of Infusion Device into Right Atrium, Percutaneous Approach (ICD-10-PCS; 2020-08-13)
PROC: 4A133B1 Monitoring of Arterial Pressure, Peripheral, Percutaneous Approach (ICD-10-PCS; 2020-08-13)
PROC: 03HY32Z Insertion of Monitoring Device into Upper Artery, Percutaneous Approach (ICD-10-PCS; 2020-08-13)
PROC: 3E043XZ Introduction of Vasopressor into Central Vein, Percutaneous Approach (ICD-10-PCS; 2020-08-13)
PROC: 0D9670Z Drainage of Stomach with Drainage Device, Via Natural or Artificial Opening (ICD-10-PCS; principal; 2020-08-14)
PROC: 5A1945Z Respiratory Ventilation, 24-96 Consecutive Hours (ICD-10-PCS; principal; 2020-08-14)
PROC: 0BH17EZ Insertion of Endotracheal Airway into Trachea, Via Natural or Artificial Opening (ICD-10-PCS; principal; 2020-08-14)
PROC: 3E0G76Z Introduction of Nutritional Substance into Upper GI, Via Natural or Artificial Opening (ICD-10-PCS; principal; 2020-08-14)
PROC: 30243R1 Transfusion of Nonautologous Platelets into Central Vein, Percutaneous Approach (ICD-10-PCS; 2020-08-15)
DX: E43 Unspecified severe protein-calorie malnutrition (principal); A41.51 Sepsis due to Escherichia coli [E. coli]; R40.20 Unspecified coma; R65.21 Severe sepsis with septic shock; J69.0 Pneumonitis due to inhalation of food and vomit; J96.01 Acute respiratory failure with hypoxia; G92 Toxic encephalopathy; Q04.3 Other reduction deformities of brain; D61.818 Other pancytopenia; N17.9 Acute kidney failure, unspecified; R64 Cachexia; D80.1 Nonfamilial hypogammaglobulinemia; K56.7 Ileus, unspecified; G40.109 Localization-related (focal) (partial) symptomatic epilepsy and epileptic syndromes with simple partial seizures, not intractable, without status epilepticus; J90 Pleural effusion, not elsewhere classified; R45.851 Suicidal ideations; N39.0 Urinary tract infection, site not specified; Z68.1 Body mass index [BMI] 19.9 or less, adult; J98.11 Atelectasis; E87.2 Acidosis; E87.1 Hypo-osmolality and hyponatremia; R57.1 Hypovolemic shock; E11.649 Type 2 diabetes mellitus with hypoglycemia without coma; Z66 Do not resuscitate; Z51.5 Encounter for palliative care; J44.9 Chronic obstructive pulmonary disease, unspecified; F29 Unspecified psychosis not due to a substance or known physiological condition; R62.7 Adult failure to thrive; E86.0 Dehydration; E83.39 Other disorders of phosphorus metabolism; E87.5 Hyperkalemia; B37.3 Candidiasis of vulva and vagina; T73.0XXA Starvation, initial encounter; E83.42 Hypomagnesemia; E87.6 Hypokalemia; E80.7 Disorder of bilirubin metabolism, unspecified; K52.9 Noninfective gastroenteritis and colitis, unspecified; F32.9 Major depressive disorder, single episode, unspecified; E87.70 Fluid overload, unspecified; E56.9 Vitamin deficiency, unspecified; R13.10 Dysphagia, unspecified; G25.0 Essential tremor; I10 Essential (primary) hypertension; E03.9 Hypothyroidism, unspecified; R51.9 Headache, unspecified; I49.3 Ventricular premature depolarization; R33.9 Retention of urine, unspecified; F41.9 Anxiety disorder, unspecified; M25.561 Pain in right knee; R58 Hemorrhage, not elsewhere classified; R26.9 Unspecified abnormalities of gait and mobility; R53.81 Other malaise; M19.90 Unspecified osteoarthritis, unspecified site; H91.90 Unspecified hearing loss, unspecified ear; F17.200 Nicotine dependence, unspecified, uncomplicated; Z71.6 Tobacco abuse counseling; Z79.52 Long term (current) use of systemic steroids; Z79.899 Other long term (current) drug therapy; Z90.49 Acquired absence of other specified parts of digestive tract; Z98.890 Other specified postprocedural states; Z98.891 History of uterine scar from previous surgery; Z85.828 Personal history of other malignant neoplasm of skin; Z87.39 Personal history of other diseases of the musculoskeletal system and connective tissue; Z87.820 Personal history of traumatic brain injury; W19.XXXA Unspecified fall, initial encounter; Z82.5 Family history of asthma and other chronic lower respiratory diseases
CPT/HCPCS: 36415; 51701; 70450; 71045; 71260; 74018; 74177; 80048; 80053; 80164; 81001; 82330; 82525; 82533; 82607; 82728; 82747; 82784; 82803; 82805; 83036; 83540; 83550; 83605; 83615; 83735; 83883; 83921; 84100; 84132; 84165; 84425; 84439; 84443; 85025; 85027; 85045; 85384; 85610; 85730; 86038; 86334; 86431; 86850; 86880; 86900; 86901; 87040; 87070; 87077; 87086; 87186; 87205; 93005; 94002; 94003; 94640; 94760; 95816; 96361; 96374; 96375; 99291